=== PATIENT | female | born 1935 | race Two or more races ===

== ENCOUNTER 2018-06-18 20:35 | Inpatient (IN) | payer OTHER ==
--- NOTE | 2018-06-18 21:06 | PDOC ---
History of Present Illness - General Chief Complaint: Injury Stated Complaint: FALL Time Seen by Provider: 06/18/18 21:05 History Source: Patient, Family Exam Limitations: No Limitations - History of Present Illness Initial Comments: 83 y/o female presenting to [facility] ER via ambulance from home accompanied by daughter and grandson. She is complaining of pain to the lateral aspect of her right hip and right neck. Pain started after she fell at home while attempting to change her underwear. This event was unwitnessed. She was on floor for approx. 5 min prior to being helped by family member. Denies loss of consciousness. Normal affect per family. No nausea or vomiting. PCP: Bassem Mariano Medical Hx: HTN Hyperlipidemia Recurrent epistaxis Past History - Past Medical History Allergies/Adverse Reactions: Allergies Allergy/AdvReac Type Severity Reaction Status Date / Time No Known Allergies Allergy Verified 10/09/14 11:48 Home Medications: Ambulatory Orders Aspirin [ASA -] 81 mg PO ASDIR 10/09/14 Escitalopram Oxalate [Lexapro -] 10 mg PO DAILY 10/09/14 Olmesartan Medoxomil [Benicar (Nf)] 20 mg PO DAILY 10/09/14 Omeprazole [Prilosec (RX)] 20 mg PO DAILY 10/09/14 Rosuvastatin Calcium [Crestor] 5 mg PO HS 10/09/14 Solifenacin Succinate [Vesicare] 5 mg PO DAILY 10/09/14 HTN: Yes Hypercholesterolemia: Yes Psychiatric Problems: Yes (Depression) - Surgical History Appendectomy: Yes - Suicide/Smoking/Psychosocial Hx Smoking History: Never smoked Have you smoked in the past 12 months: No Hx Alcohol Use: No Substance Use Type: None Review of Systems - Review of Systems Able to Perform ROS?: Yes Comments:: In addition to that documented in the HPI above, the additional ROS was obtained : Constitutional: Denies fevers or chills Eyes: Denies vision changes ENMT: Denies sore throat CV: Denies chest pain Resp: Denies SOB GI: Denies vomiting or diarrhea *Physical Exam - Physical Exam Comments: Constitutional: Elderly female in no acute distress or but obvious discomfort. Found semi-fowlers in hospital bed. Alert and oriented x4. Answered all questions appropriately and completely. Speech was non-labored, non-pressured. HEENT: Normocephalic. No obvious external signs of trauma. Hearing grossly normal. No nasal discharge. Neck is supple, trachea is midline. Subjective tenderness to right side of neck without obvious deformity, no step off. Able to rotate neck <45 degrees. Cardiovascular: Regular rate and regular rhythm. No murmur, rubs, clicks, or gallops. Peripheral pulses: Radial pulses full. Respiratory: Breathing unlabored. Equal chest rise and fall. Clear to auscultation bilaterally. No stridor, no wheezing, no rhonchi. Gastrointestinal: abdomen is soft, non-tender, non-distended. Neuro: Alert and oriented. Moving all four extremities spontaneously. Left lower extremity: proximal and distal strength 5/5, land surveyor manager strength 5/5 - equal and symmetric. Unable to assess right lower extremity - limited by pain. Plantar flexion and dorsiflexion 5/5 bilaterally. Skin/MSK: Warm, dry, and intact. No bruising, rashes, or other lesions. R and L leg length equal. Right leg not externally rotated. Subjective tenderness to proximal lateral aspect of right femur, . Psych: Affect: appropriate. Mood: normal. ED Treatment Course - LABORATORY CBC & Chemistry Diagram: 06/18/18 22:36 06/18/18 22:36 - RADIOLOGY Radiograph Interpretation: CT of head and cervical spine without contrast: Ty Garg MD wrote on Jun 19, 2018 at 01:25 AM: Referring Physician: BISHOP BLISS Patient Name: NASRIN MEJIA THIS IS A PRELIMINARY REPORT FROM [facility] DATE OF SERVICE: 2018-06-19 00:49:20 IMAGES: [id number] EXAM: HEAD CT WITHOUT CONTRAST and CT cervical spine without contrast HISTORY: Status post fall COMPARISON: None. FINDINGS: CT brain:The ventricular system is midline and nondilated. There is vvla-jx-aserleti cortical atrophy and chronic small vessel ischemic disease. There is no bleed, mass, extra-axial fluid collection or mass effect. No skull fracture or skull lesion is identified. There is mild mucosal thickening of bilateral maxillary sinuses but no sinus air-fluid levels. Status post left mastoidectomy. The right mastoid air cells are clear. CT cervical spine: There is no fracture, subluxation, prevertebral soft tissue swellin. There are multilevel moderate degenerative changes. 3 mm ill-defined right upper lobe nodule is noted. IMPRESSION: No acute intracranial pathology. No fracture the cervical spine. 3 mm right upper lobe nodule. CT chest may be obtained as clinically indicated. One or more of the following dose reduction techniques were used: automated exposure control, adjustment of the mA and/or kV according to patient size, use of iterative reconstructive technique. THIS DOCUMENT HAS BEEN ELECTRONICALLY SIGNED Manpreet Garg MD 06/19/2018 01:22 EST Medical Decision Making - Medical Decision Making *Reviewed vital signs, nursing notes, and prior visit documentation (if available). 83 y/o female complaining of right hip/leg pain s/p fall. Vitals unremarkable. Intertrochanteric right femur fracture on plain film. CT of head and cervical spine unremarkable for acute process. Made NPO. Pain controlled with tylenol and morphine. Maintenance fluids started. Consult request placed for Dr. Meredith of orthopedic service. 02:[address] Tillman, admitting physician for Dr. Mariano. Agreed to admit pt to med/surg on inpatient status. *DC/Admit/Observation/Transfer Diagnosis at time of Disposition: Intertrochanteric fracture of right femur Qualifiers: Encounter type: initial encounter Fracture type: closed Fracture alignment: displaced Qualified Code(s): S72.141A - Displaced intertrochanteric fracture of right femur, initial encounter for closed fracture - Discharge Dispostion Condition at time of disposition: Stable Decision to Admit order: Yes - Referrals - Patient Instructions - Post Discharge Activity
[2018-06-18 21:09] VITALS: BMI 31.3
--- NOTE | 2018-06-18 21:51 | PDOC ---
Attending Attestation - HPI HPI: This patient is an 83 year old Kinyarwanda speaking female with PMHx of HTN and hyperlipidemia, recurrent epistaxis, who was BIBA from home and presents s/p fall with complaints of right hip and neck pain. Patient states that she fell from a standing position while trying to change her diaper. She reports a unwitnessed fall to the floor. She immediately called for her attendant who came to her aid. She denies loss of consciousness. Her family reports unchanged mental status. 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 PCP: Bassem Mariano <Abril Adhikari - Last Filed: 06/18/18 22:21> - Resident Resident Name: Rolando Louie - ED Attending Attestation I have performed the following: I have examined & evaluated the patient, The case was reviewed & discussed with the resident, I agree w/resident's findings & plan, Exceptions are as noted - Physicial Exam PE: 06/19/18 01:53 Patient is awake and alert, well-appearing, in no distress Normocephalic and atraumatic PERRLA, EOMI CTA RRR Pelvis is stable Tenderness to palpation along the proximal right femur with pain on log roll of the right lower extremity; neurovascularly intact distally; gait is deferred - Medical Decision Making 06/19/18 01:54 Patient is an 83-year-old female who presents with traumatic right shoulder and right hip pain post mechanical fall. CT of head and cervical spine show no evidence of acute pathology. Right hip x-ray reveals an intertrochanteric fracture of the right femur. Patient will require admission for orthopedic evaluation and ORIF. We'll place Palma catheter. <Omid Pacheco - Last Filed: 06/19/18 01:54>
[2018-06-18] MEDS ORDERED: ACETAMINOPHEN 1000 MG/100 ML VIAL (NON FORMULARY) IVPB ONE (22:07)
[2018-06-18] MEDS ORDERED: ACETAMINOPHEN INJECTION 100 ML IVPB ONE (22:23)
[2018-06-18 23:04] LABS: INR 1.13 (0.83-1.09); PROTHROMBIN TIME (PATIENT) 13.3 SEC (9.7-13.0)
[2018-06-18 23:07] LABS: ACTIVATED PTT 29.2 SECONDS (25.2-36.5)
[2018-06-18 23:18] LABS: ANION GAP 11 MMOL/L (8-16); BLOOD UREA NITROGEN 27 mg/dL (7-18); CALCIUM 8.6 mg/dL (8.5-10.1); CHLORIDE 106 mmol/L (98-107); CO2 26 mmol/L (21-32); GLUCOSE,RANDOM 118 mg/dL (74-106); POTASSIUM 3.8 mmol/L (3.5-5.1); SODIUM 143 mmol/L (136-145)
[2018-06-18 23:41] LABS: BASO % 0.3 % (0-2.0); EOS % 0.8 % (0-4.5); HEMATOCRIT 37.2 % (32.4-45.2); HEMOGLOBIN 12.2 GM/dL (10.7-15.3); LYMPH % 13.8 % (8-40); MCH 28.1 pg (25.7-33.7); MCHC 32.8 g/dl (32.0-36.0); MEAN CELL VOLUME 85.8 fl (80-96); MEAN PLT VOLUME 9.6 fl (7.5-11.1); MONO % 6.2 % (3.8-10.2); NEUT % 78.9 % (42.8-82.8); PLATELET COUNT 228 K/MM3 (134-434); RBC 4.33 M/mm3 (3.60-5.2); RDW 14.1 % (11.6-15.6); WHITE BLOOD COUNT 11.3 K/mm3 (4.0-10.0)
[2018-06-19] MEDS ORDERED: morphine CARPU-JECT 4 MG/1 ML DISP.SYRIN IVPUSH ONE ×2 (02:18→06:48)
[2018-06-19] MEDS ORDERED: ONDANSETRON 4 MG/2 ML VIAL IVPUSH ONE (02:18)
[2018-06-19] MEDS ORDERED: MORPHINE SULFATE 2 MG/ML VIAL ONE ×3 (02:54→13:15)
[2018-06-19] MEDS ORDERED: ONDANSETRON 4 MG/2 ML VIAL ONE (02:55)
[2018-06-19] MEDS: DEXTROSE 5%-0.45% SALINE 1,000 ML IV SCH ×2 (03:03→22:58)
--- NOTE | 2018-06-19 09:10 | CON.ORTH ---
Consult Reason for Consultation:: right hip fx - Alcohol/Substance Use Hx Alcohol Use: No - Smoking History Smoking history: Never smoked Have you smoked in the past 12 months: No Home Medications - Allergies Allergies/Adverse Reactions: Allergies Allergy/AdvReac Type Severity Reaction Status Date / Time No Known Allergies Allergy Verified 10/09/14 11:48 - Home Medications Home Medications: Ambulatory Orders Aspirin [ASA -] 81 mg PO ASDIR 10/09/14 Escitalopram Oxalate [Lexapro -] 10 mg PO DAILY 10/09/14 Olmesartan Medoxomil [Benicar (Nf)] 20 mg PO DAILY 10/09/14 Omeprazole [Prilosec (RX)] 20 mg PO DAILY 10/09/14 Rosuvastatin Calcium [Crestor] 5 mg PO HS 10/09/14 Solifenacin Succinate [Vesicare] 5 mg PO DAILY 10/09/14 Physical Exam for Ortho Vital Signs: Vital Signs Temperature 98.2 F 06/19/18 05:51 Pulse Rate 73 06/19/18 05:51 Respiratory Rate 16 06/19/18 05:51 Blood Pressure 172/78 H 06/19/18 05:51 O2 Sat by Pulse Oximetry (%) 96 06/19/18 05:51 Labs: CBC, BMP 06/18/18 22:36 06/18/18 22:36 INR, PTT INR 1.13 (0.83-1.09) H 06/18/18 22:36 - Lower Extremity Hip: Yes: Right, Decreased ROM, Leg Externally Rotated, Leg Shortened, Pain, Swelling, Other (nvi) Imaging - Results X-ray: Report Reviewed, Image Reviewed Assessment/Plan 83 year old Croatian speaking female with PMHx of HTN and hyperlipidemia, recurrent epistaxis, who was BIBA from home and presents s/p fall with complaints of right hip and neck pain. Patient states that she fell from a standing position while trying to change her diaper. She reports a unwitnessed fall to the floor. She immediately called for her attendant who came to her aid. She denies loss of consciousness. Her family reports unchanged mental status. a/p right displaced IT fx will require right IM gamma nail will d/w pts family OR tentatively for tomorrow Surgical clearance NPO after midnight d/w Dr. Meredith
--- NOTE | 2018-06-19 11:08 | EKG ---
Test Reason : Blood Pressure : / mmHG Vent. Rate : 079 BPM Atrial Rate : 079 BPM P-R Int : 138 ms QRS Dur : 084 ms QT Int : 396 ms P-R-T Axes : 053 007 061 degrees QTc Int : 454 ms POOR DATA QUALITY, INTERPRETATION MAY BE ADVERSELY AFFECTED NORMAL SINUS RHYTHM NORMAL ECG NO PREVIOUS ECGS AVAILABLE Confirmed by HANNAH IYER MD ([id number]) on 06/19/2018 11:07:41 AM Referred By: Confirmed By:HANNAH IYER MD
[2018-06-19] MEDS ORDERED: ONDANSETRON 4 MG/2 ML VIAL IVPUSH PRN (12:24)
[2018-06-19] MEDS ORDERED: VALSARTAN 80 MG TABLET (UD) ONE (13:15)
[2018-06-19] MEDS ORDERED: PANTOPRAZOLE 40 MG TABLET (FP) ONE (13:15)
[2018-06-19 13:19] LABS: BASO % 0.5 % (0-2.0); EOS % 0.8 % (0-4.5); HEMATOCRIT 37.6 % (32.4-45.2); HEMOGLOBIN 12.6 GM/dL (10.7-15.3); LYMPH % 16.5 % (8-40); MCH 28.5 pg (25.7-33.7); MCHC 33.6 g/dl (32.0-36.0); MEAN PLT VOLUME 8.9 fl (7.5-11.1); MONO % 7.1 % (3.8-10.2); NEUT % 75.1 % (42.8-82.8); PLATELET COUNT 194 K/MM3 (134-434); RBC 4.42 M/mm3 (3.60-5.2); RDW 13.8 % (11.6-15.6); WHITE BLOOD COUNT 8.8 K/mm3 (4.0-10.0)
[2018-06-19 13:36] LABS: ALBUMIN 3.4 g/dl (3.4-5.0); ALK PHOS 116 U/L (45-117); ANION GAP 7 MMOL/L (8-16); BILIRUBIN,TOTAL 1.1 mg/dL (0.2-1); BLOOD UREA NITROGEN 18 mg/dL (7-18); CALCIUM 8.3 mg/dL (8.5-10.1); CHLORIDE 103 mmol/L (98-107); CO2 28 mmol/L (21-32); CREATININE 0.9 mg/dL (0.55-1.3); GLUCOSE,RANDOM 146 mg/dL (74-106); POTASSIUM 3.7 mmol/L (3.5-5.1); SGOT/AST 28 U/L (15-37); SGPT/ALT 30 U/L (13-61); SODIUM 138 mmol/L (136-145); TOT PROT 6.3 g/dl (6.4-8.2)
[2018-06-19] MEDS: MORPHINE SULFATE 2 MG/ML VIAL IVPUSH PRN (14:04)
[2018-06-19] MEDS: PANTOPRAZOLE 20 MG TABLET (FP) PO SCH (14:04)
[2018-06-19] MEDS: VALSARTAN 160 MG TABLET (UD) PO SCH (14:04)
--- NOTE | 2018-06-19 15:54 | ECHO ---
Name: NASRIN MEJIA Exam:Adult Echocardiogram Study Date: 06/19/2018 01:30 PM Age: 83 yrs Reason For Study: HTN CARDIAC CLEARANCE Height: 58 in Weight: 150 lb BSA: 1.6 m2 MMode/2D Measurements & Calculations IVSd: 0.88 cm Ao root diam: 3.0 cm LVIDd: 4.0 cm LVIDs: 2.7 cm LVPWd: 0.80 cm EDV(Teich): 71.0 ml ESV(Teich): 28.0 ml Doppler Measurements & Calculations MV E max grabiel: 55.8 cm/sec Ao V2 max: 134.2 cm/sec MV A max grabiel: 95.8 cm/sec Ao max P.2 mmHg MV E/A: 0.58 AI P1/2t: 370.4 msec AI max grabiel: 348.4 cm/sec LV V1 max P.5 mmHg AI max P.6 mmHg LV V1 max: 94.0 cm/sec AI dec slope: 275.5 cm/sec2 Med Peak E' Grabiel: 5.0 cm/sec Med E/e': 11.1 Lat Peak E' Grabiel: 7.5 cm/sec Lat E/e': 7.5 Procedure A complete two-dimensional transthoracic echocardiogram was performed (2D, M-mode, Doppler and color flow Doppler). The study was technically difficult with many images being suboptimal in quality. Left Ventricle The left ventricular size, thickness and function are normal. The left ventricular ejection fraction is normal. Ejection Fraction = 60-65%. Regional wall motion abnormalities cannot be excluded due to limi ulises visualization. Right Ventricle The right ventricle is normal in size and function. Atria The left atrial size is normal. Right atrium not well visualized. Mitral Valve There is no mitral regurgitation noted. Tricuspid Valve No tricuspid regurgitation. There was insufficient TR detected to calculate RV systolic pressure. Aortic Valve No hemodynamically significant valvular aortic stenosis. Trace aortic regurgitation. Pulmonic Valve There is no pulmonic valvular regurgitation. Great Vessels The aortic root is normal size. Pericardium/Pleura There is no pericardial effusion. Interpretation Summary The study was technically difficult with many images being suboptimal in quality. The left ventricular size, thickness and function are normal The right ventricle is normal in size and function. Trace aortic regurgitation. MD Ezio Caldwell 06/19/2018 03:53 PM
--- NOTE | 2018-06-19 17:30 | HP ---
Admitting History and Physical - Admission History of Present Illness: Pt is a 83 y/o female with PMH significant for HTN, hyperlipidemia and recurrent epistaxis. Pt was BIBA from home bc of a fall with complaints of right hip and neck pain. Patient stated that she fell from a standing position while trying to change her diaper. Pt reported an unwitnessed fall to the floor. Pt immediately called for her attendant who came to her aid. In the ER pt had ct scan head wc did not show acute pathology and ct scan cervical spine was also negative for any acute pathology. However xray rt hip showed rt femoral intertrochanteric fracture. - Past Medical History Cardiovascular: Yes: HTN, Hyperlipdemia - Past Surgical History Past Surgical History: Yes: None - Smoking History Smoking history: Never smoked Have you smoked in the past 12 months: No - Alcohol/Substance Use Hx Alcohol Use: No Home Medications - Allergies Allergies/Adverse Reactions: Allergies Allergy/AdvReac Type Severity Reaction Status Date / Time No Known Allergies Allergy Verified 10/09/14 11:48 - Home Medications Home Medications: Ambulatory Orders Aspirin [ASA -] 81 mg PO ASDIR 10/09/14 Escitalopram Oxalate [Lexapro -] 10 mg PO DAILY 10/09/14 Olmesartan Medoxomil [Benicar (Nf)] 20 mg PO DAILY 10/09/14 Omeprazole [Prilosec (RX)] 20 mg PO DAILY 10/09/14 Rosuvastatin Calcium [Crestor] 5 mg PO HS 10/09/14 Solifenacin Succinate [Vesicare] 5 mg PO DAILY 10/09/14 Family Disease History - Family Disease History Family History: Unremarkable Review of Systems - Review of Systems Constitutional: reports: No Symptoms Eyes: reports: No Symptoms HENT: reports: No Symptoms Neck: reports: No Symptoms Cardiovascular: reports: No Symptoms Respiratory: reports: No Symptoms Gastrointestinal: reports: No Symptoms Genitourinary: reports: No Symptoms Physical Examination Vital Signs: Vital Signs Temperature 97.6 F 06/19/18 14:45 Pulse Rate 79 06/19/18 14:45 Respiratory Rate 19 06/19/18 14:45 Blood Pressure 138/72 06/19/18 14:45 O2 Sat by Pulse Oximetry (%) 95 06/19/18 14:45 Constitutional: Yes: No Distress HENT: Yes: WNL Neck: Yes: WNL, Supple Cardiovascular: Yes: WNL, Regular Rate and Rhythm Respiratory: Yes: WNL, Regular, CTA Bilaterally Gastrointestinal: Yes: WNL, Normal Bowel Sounds, Soft Extremities: Yes: Other (Unable to move rt lower extremity) Neurological: Yes: WNL, Alert, Oriented Labs: CBC, BMP 06/19/18 13:10 06/19/18 13:10 Problem List - Problems (1) Intertrochanteric fracture of right femur Assessment/Plan: Pt is medically cleared for surgery Will also check echo and cardiac consult for cardiac clearance Code(s): S72.141A - DISPLACED INTERTROCHANTERIC FRACTURE OF RIGHT FEMUR, INIT Qualifiers: Encounter type: initial encounter Fracture type: closed Fracture alignment: displaced Qualified Code(s): S72.141A - Displaced intertrochanteric fracture of right femur, initial encounter for closed fracture (2) HTN (hypertension) Assessment/Plan: Cont valsartan BP stable Code(s): I10 - ESSENTIAL (PRIMARY) HYPERTENSION (3) HLD (hyperlipidemia) Assessment/Plan: Cont crestor Code(s): E78.5 - HYPERLIPIDEMIA, UNSPECIFIED
[2018-06-19] MEDS ORDERED: ROSUVASTATIN CA 5 MG TABLET (FP) PO SCH (22:00)
[2018-06-20] MEDS: DEXTROSE 5%-0.45% SALINE 1,000 ML IV SCH ×3 (02:55→14:35)
[2018-06-20] MEDS: MORPHINE SULFATE 2 MG/ML VIAL IVPUSH PRN ×2 (05:42→20:37)
[2018-06-20 08:15] LABS: BASO % 0.4 % (0-2.0); EOS % 1.4 % (0-4.5); HEMOGLOBIN 11.6 GM/dL (10.7-15.3); LYMPH % 15.9 % (8-40); MCH 28.2 pg (25.7-33.7); MCHC 33.2 g/dl (32.0-36.0); MEAN PLT VOLUME 8.9 fl (7.5-11.1); MONO % 8.4 % (3.8-10.2); NEUT % 73.9 % (42.8-82.8); PLATELET COUNT 172 K/MM3 (134-434); RBC 4.12 M/mm3 (3.60-5.2); RDW 13.7 % (11.6-15.6); WHITE BLOOD COUNT 8.6 K/mm3 (4.0-10.0)
[2018-06-20 08:49] LABS: ALBUMIN 3.1 g/dl (3.4-5.0); ALK PHOS 103 U/L (45-117); ANION GAP 9 MMOL/L (8-16); BLOOD UREA NITROGEN 14 mg/dL (7-18); CHLORIDE 105 mmol/L (98-107); CO2 24 mmol/L (21-32); CREATININE 0.7 mg/dL (0.55-1.3); GLUCOSE,RANDOM 117 mg/dL (74-106); POTASSIUM 3.9 mmol/L (3.5-5.1); SGOT/AST 17 U/L (15-37); SGPT/ALT 25 U/L (13-61); SODIUM 138 mmol/L (136-145)
--- NOTE | 2018-06-20 09:24 | CON.CARD ---
Cardiology Consult (text) - Consultation Consultation Note: Cardiology Consult Dicated IMP: Right Intertrochanteric Fx REC: There are no absolute cardiac contraindications to surgery: No , no unstable coronary syndrome, in NSR with normal EF and euvolemic. Post op DVT prophylaxis Will follow thanks
[2018-06-20] MEDS ORDERED: SOLIFENACIN SUCCINATE 5 MG TAB (FP) PO SCH (10:00)
--- NOTE | 2018-06-20 10:03 | CONS ---
DATE OF CONSULTATION: 06/20/2018 REQUESTING PHYSICIAN: Fatuma Tillman MD REASON FOR CONSULTATION: Preoperative evaluation. HISTORY: The patient is an 83-year-old female who presented to the emergency department via ambulance from her home accompanied by her daughter and grandson. The patient fell while attempting to change her underwear, sustained a mechanical fall, and was complaining of pain to the lateral aspect of her right hip. The patient denies antecedent chest pain, palpitations, or loss of consciousness. She denies shortness of breath. Her hip x-ray revealed a right femoral intertrochanteric fracture for which she was seen by Orthopaedics, and surgery is required. Cervical and head CTs showed no fracture. Chest x-ray and electrocardiogram were normal. The patient is currently lying in bed complaining of pain in the right hip. She denies chest pain, shortness of breath, palpitations, PND, or orthopnea. PAST MEDICAL HISTORY: Significant for hyperlipidemia, depression, hypertension, and GERD. CURRENT ALLERGIES: None. CURRENT MEDICATIONS: Include morphine sulfate 2 mg IV q.6 p.r.n., Ondansetron 4 mg IV q.6, pantoprazole 20 mg p.o. daily, rosuvastatin 5 mg p.o. nightly, Vesicare, valsartan 160 mg p.o. daily. FAMILY HISTORY: Noncontributory. SOCIAL HISTORY: No alcohol, tobacco, or illicit drug use. PHYSICAL EXAMINATION: Vital Signs: Blood pressure 98.4 Fahrenheit, pulse 81, blood pressure 153/67, O2 saturation 95 on room air, temperature 98.4, blood pressure 122/60, O2 95 on room air. Neck: No bruits. Heart: S1, S3 regular. No murmurs. Chest: Clear. Abdomen: Soft, nontender. Extremities: No edema. DIAGNOSTIC DATA: ECG: Normal sinus with no acute changes. White count 8.6, hematocrit 35, platelets 172, INR 1.1. Sodium 138, potassium 3.9, creatinine 0.7. LFTs are normal. IMPRESSION: 1. Mechanical fall. 2. Right intertrochanteric fracture. 3. History of hypertension. RECOMMENDATIONS: 1. There presently are no absolute cardiac contraindications to the planned surgery. The patient is in normal sinus rhythm and is euvolemic. There is no aortic stenosis and no signs or symptoms of acute coronary syndrome. Can proceed to surgery with no further cardiac workup. No further cardiac workup is indicated nor should it delay this important procedure. 2. Blood pressure is currently well controlled. The patient should take usual blood pressure medications with a small sip of water. 3. DVT prophylaxis as per Orthopaedic surgery. We will follow. Thank you for the consultation. KATHY CANALES M.D. [id number]
[2018-06-20] MEDS: VALSARTAN 160 MG TABLET (UD) PO SCH (10:07)
[2018-06-20] MEDS: PANTOPRAZOLE 20 MG TABLET (FP) PO SCH (10:08)
[2018-06-20] MEDS ORDERED: PROPOFOL 20 ML ONE (10:52)
[2018-06-20] MEDS ORDERED: LIDOCAINE HCL/PF 2% SDV 5ML VIAL ONE (10:52)
[2018-06-20] MEDS ORDERED: ceFAZolin SODIUM 1 GM VIAL ONE ×2 (11:37→16:07)
[2018-06-20] MEDS ORDERED: ceFAZolin SODIUM 1 GM VIAL IVPB ONE (11:40)
[2018-06-20] MEDS ORDERED: KETOROLAC TROMETHAMINE 30 MG/1 ML VIAL ONE (11:57)
[2018-06-20] MEDS ORDERED: DEXAMETHASONE SOD PHOSPHATE 4 MG/1 ML VIAL ONE (12:02)
[2018-06-20] MEDS ORDERED: ACETAMINOPHEN 1000 MG/100 ML VIAL (NON FORMULARY) IVPB PRN ×2 (12:32→13:09)
[2018-06-20] MEDS ORDERED: LACTATED RINGERS SOLUTION 1,000 ML IV SCH ×2 (12:45→13:09)
[2018-06-20] MEDS ORDERED: ACETAMINOPHEN INJECTION 100 ML IVPB ONE (12:51)
[2018-06-20] MEDS ORDERED: ONDANSETRON 4 MG/2 ML VIAL IVPUSH PRN (13:09)
--- NOTE | 2018-06-20 14:14 | OP ---
Operative Note - Note: Operative Date: 06/20/18 Pre-Operative Diagnosis: r it hip fx Operation: R GAMMA NAIL Post-Operative Diagnosis: Same as Pre-op Surgeon: Oscar Meredith Anesthesia: General Estimated Blood Loss (mls): 50 Operative Report Dictated: Yes
[2018-06-20] MEDS: LACTATED RINGERS SOLUTION 1,000 ML IV SCH (14:55)
[2018-06-20] MEDS ORDERED: DEXTROSE 5%-WATER - 50 ML IVPB ONE (16:07)
[2018-06-20] MEDS: CEFAZOLIN 1 GM in DEXTROSE 5%-WATER - 50 ML IVPB SCH (17:03)
[2018-06-20] MEDS ORDERED: CEFAZOLIN 1 GM in DEXTROSE 5%-WATER - 50 ML IVPB SCH (20:00)
[2018-06-20] MEDS ORDERED: PT OWN MED DRAWER 7, Y5N ONE (20:59)
[2018-06-20] MEDS: ROSUVASTATIN CA 5 MG TABLET (FP) PO SCH (21:00)
--- NOTE | 2018-06-20 22:35 | PN ---
Progress Note, Physician - Current Medication List Current Medications: Active Medications Enoxaparin Sodium (Lovenox -) 40 mg SQ DAILY [facility] Dextrose/Sodium Chloride (D5-1/2ns -) 1,000 mls @ 100 mls/hr IV ASDIR LILLIAN Last Admin: 06/20/18 14:35 Dose: 0 mls Cefazolin Sodium 1 gm/ (Dextrose) 50 mls @ 100 mls/hr IVPB Q8H-IV LILLIAN Stop: 06/21/18 02:29 Last Admin: 06/20/18 17:03 Dose: 100 mls/hr Lactated Ringer's (Lactated Ringers Solution) 1,000 mls @ 75 mls/hr IV ASDIR LILLIAN Last Admin: 06/20/18 14:55 Dose: 75 mls/hr Morphine Sulfate (Morphine Sulfate) 2 mg IVPUSH Q6H PRN PRN Reason: pain Last Admin: 06/20/18 20:37 Dose: 2 mg Ondansetron HCl (Zofran Injection) 4 mg IVPUSH Q6H PRN PRN Reason: NAUSEA Pantoprazole Sodium (Protonix -) 20 mg PO DAILY [facility] Rosuvastatin Calcium (Crestor -) 5 mg PO HS LILLIAN Last Admin: 06/20/18 21:00 Dose: 5 mg Solifenacin (Vesicare -) 5 mg PO DAILY LILLIAN Valsartan (Diovan -) 160 mg PO DAILY [facility] - Objective Vital Signs: Vital Signs Temperature 99.5 F 06/20/18 20:00 Pulse Rate 63 06/20/18 20:00 Respiratory Rate 20 06/20/18 20:00 Blood Pressure 132/81 06/20/18 20:00 O2 Sat by Pulse Oximetry (%) 95 06/20/18 18:37 Labs: CBC, BMP 06/20/18 06:50 06/20/18 06:50 INR, PTT INR 1.13 (0.83-1.09) H 06/18/18 22:36 Problem List - Problems (1) Intertrochanteric fracture of right femur Code(s): S72.141A - DISPLACED INTERTROCHANTERIC FRACTURE OF RIGHT FEMUR, INIT Qualifiers: Encounter type: initial encounter Fracture type: closed Fracture alignment: displaced Qualified Code(s): S72.141A - Displaced intertrochanteric fracture of right femur, initial encounter for closed fracture (2) HTN (hypertension) Code(s): I10 - ESSENTIAL (PRIMARY) HYPERTENSION (3) HLD (hyperlipidemia) Code(s): E78.5 - HYPERLIPIDEMIA, UNSPECIFIED
[2018-06-21] MEDS ORDERED: DEXTROSE 5%-WATER - 50 ML IVPB ONE (01:27)
[2018-06-21] MEDS ORDERED: ceFAZolin SODIUM 1 GM VIAL ONE (01:27)
[2018-06-21] MEDS: CEFAZOLIN 1 GM in DEXTROSE 5%-WATER - 50 ML IVPB SCH (01:31)
[2018-06-21] MEDS: MORPHINE SULFATE 2 MG/ML VIAL IVPUSH PRN ×2 (04:58→18:54)
[2018-06-21] MEDS: LACTATED RINGERS SOLUTION 1,000 ML IV SCH ×2 (05:00→18:44)
[2018-06-21 09:05] LABS: BASO % 0.3 % (0-2.0); EOS % 0.1 % (0-4.5); HEMATOCRIT 26.6 % (32.4-45.2); HEMOGLOBIN 8.7 GM/dL (10.7-15.3); LYMPH % 10.3 % (8-40); MCHC 32.6 g/dl (32.0-36.0); MEAN CELL VOLUME 85.9 fl (80-96); MONO % 10.5 % (3.8-10.2); NEUT % 78.8 % (42.8-82.8); PLATELET COUNT 139 K/MM3 (134-434); RDW 13.9 % (11.6-15.6); WHITE BLOOD COUNT 10.3 K/mm3 (4.0-10.0)
--- NOTE | 2018-06-21 09:06 | SPEC ---
DATE OF OPERATION: 06/20/2018 PREOPERATIVE DIAGNOSIS: Right intertrochanteric/basicervical hip fracture. POSTOPERATIVE DIAGNOSIS: Right intertrochanteric/basicervical hip fracture. PROCEDURE: Right Gamma nail. SURGICAL ATTENDING: Oscar Mereidth MD ANESTHESIA: General with LMA. CLOSURE: A short Gamma nail of 125 degree with appropriate interlocks, 0 Vicryl fascia, 2-0 subcutaneous, torsten to skin. ESTIMATED BLOOD LOSS: Negligible. COMPLICATIONS: None. CONDITION: To Recovery in stable condition. DESCRIPTION OF THE PROCEDURE: The patient was taken to the operating room on June 20, 2018. IV Kefzol was administered prophylactically prior to the case. Anesthesia was administered by the anesthesiologist. The patient was then fastened to the fracture table with all prominences well padded. Excellent reduction of the fracture was confirmed in AP and lateral plane by use of fluoroscopy. The right hip area was then prepped and draped in the usual sterile fashion by use of a shower curtain. A small 2-cm longitudinal incision over the tip of the greater trochanter was incised, hemostasis achieved using Bovie cautery. Sharp dissection was carried through the fascia. A guidewire was drilled from the tip of the greater trochanter into the intramedullary canal past the fracture. This was directed by fluoroscopy in both the AP and lateral plane. This was overreamed with a proximal reamer. A short Gamma nail was then malleted down into place. Using the outrigger and a small stab incision laterally, a guidewire was drilled from the lateral aspect of the femur, through the radha, through the neck into the femoral head. Proper placement was confirmed in the AP and lateral plane by using the image intensifier. The guidewire was measured for length, reamed with a triple reamer, and then screwed with the appropriate-sized lag screw. With the traction removed, the compression device was used to compress the fracture. A set screw was placed from above in the dynamic fashion. Again using the outrigger and through a small stab incision distally, a distal hole was drilled, depth gauged and screwed with the appropriate length locking screw in the static hole. The outrigger was removed. The x-rays in the AP and lateral plane revealed excellent position of the hardware with excellent reduction of the fracture. All incisions were irrigated out with copious amounts of irrigation. The fascia was closed in 0 Vicryl, 2-0 subcutaneous, and torsten to the skin. Sterile pressure dressing was applied, patient awakened from anesthesia and transferred to Recovery in stable condition. No complications. Estimated blood loss negligible. Brittanie [id number]
--- NOTE | 2018-06-21 09:20 | PN ---
Progress Note, Physician History of Present Illness: 83 y/o female presenting to [facility] ER via ambulance from home accompanied by daughter and grandson. She is complaining of pain to the lateral aspect of her right hip and right neck. Pain started after she fell at home while attempting to change her underwear. This event was unwitnessed. She was on floor for approx. 5 min prior to being helped by family member. Denies loss of consciousness. Normal affect per family. No nausea or vomiting. PCP: [facility] Hx: HTN Hyperlipidemia Recurrent epistaxis - Current Medication List Current Medications: Active Medications Enoxaparin Sodium (Lovenox -) 40 mg SQ DAILY [facility] Dextrose/Sodium Chloride (D5-1/2ns -) 1,000 mls @ 100 mls/hr IV ASDIR [facility] Last Admin: 06/20/18 14:35 Dose: 0 mls Lactated Ringer's (Lactated Ringers Solution) 1,000 mls @ 75 mls/hr IV ASDIR [facility] Last Admin: 06/21/18 05:00 Dose: 75 mls/hr Morphine Sulfate (Morphine Sulfate) 2 mg IVPUSH Q6H PRN PRN Reason: pain Last Admin: 06/21/18 04:58 Dose: 2 mg Ondansetron HCl (Zofran Injection) 4 mg IVPUSH Q6H PRN PRN Reason: NAUSEA Pantoprazole Sodium (Protonix -) 20 mg PO DAILY [facility] Rosuvastatin Calcium (Crestor -) 5 mg PO HS [facility] Last Admin: 06/20/18 21:00 Dose: 5 mg Solifenacin (Vesicare -) 5 mg PO DAILY [facility] Valsartan (Diovan -) 160 mg PO DAILY [facility] - Objective Vital Signs: Vital Signs Temperature 98.9 F 06/21/18 06:00 Pulse Rate 76 06/21/18 06:00 Respiratory Rate 20 06/21/18 06:00 Blood Pressure 134/65 06/21/18 06:00 O2 Sat by Pulse Oximetry (%) 98 06/20/18 22:00 Eyes: Yes: WNL, Conjunctiva Clear, EOM Intact HENT: Yes: WNL, Atraumatic, Normocephalic Neck: Yes: WNL, Supple, Trachea Midline Cardiovascular: Yes: WNL, Regular Rate and Rhythm Respiratory: Yes: WNL, Regular, CTA Bilaterally Gastrointestinal: Yes: WNL, Normal Bowel Sounds Genitourinary: Yes: WNL Musculoskeletal: Yes: WNL Extremities: Yes: WNL Edema: No Integumentary: Yes: WNL Neurological: Yes: WNL, Alert, Oriented ...Motor Strength: WNL Psychiatric: Yes: WNL Labs: CBC, BMP 06/21/18 07:45 INR, PTT INR 1.13 (0.83-1.09) H 06/18/18 22:36 Assessment/Plan s/p r hip gamma nail POD #1 htn hlp Plan; Cardiac ball stable . cont dvt plx coverage for dr. Gordon
--- NOTE | 2018-06-21 09:26 | PN ---
Progress Note (short form) - Note Progress Note: Post op day#1.s/p Rigt hip gamma nail under GA UNEVENTFFUL.PATIENT STABLE.NO ANY ANESTHESIA RELATED PROBELM.PATIENT DC FROM THE [facility]EST[facility]IA [facility].
[2018-06-21 09:40] LABS: ALBUMIN 2.6 g/dl (3.4-5.0); ALK PHOS 80 U/L (45-117); ANION GAP 7 MMOL/L (8-16); BILIRUBIN,TOTAL 0.7 mg/dL (0.2-1); BLOOD UREA NITROGEN 19 mg/dL (7-18); CHLORIDE 105 mmol/L (98-107); CO2 26 mmol/L (21-32); CREATININE 0.7 mg/dL (0.55-1.3); GLUCOSE,RANDOM 106 mg/dL (74-106); POTASSIUM 4.2 mmol/L (3.5-5.1); SGOT/AST 21 U/L (15-37); SGPT/ALT 25 U/L (13-61); SODIUM 138 mmol/L (136-145); TOT PROT 5.2 g/dl (6.4-8.2)
[2018-06-21] MEDS ORDERED: ENOXAPARIN NA (PORCINE) 40 MG/0.4 ML DISP.SYRIN SQ SCH (10:00)
[2018-06-21] MEDS ORDERED: PT OWN MED DRAWER 7, Y5N ONE (10:38)
[2018-06-21] MEDS: PANTOPRAZOLE 20 MG TABLET (FP) PO SCH (10:40)
[2018-06-21] MEDS: VALSARTAN 160 MG TABLET (UD) PO SCH (10:40)
[2018-06-21] MEDS: SOLIFENACIN SUCCINATE 5 MG TAB (FP) PO SCH (10:40)
[2018-06-21] MEDS: ENOXAPARIN NA (PORCINE) 40 MG/0.4 ML DISP.SYRIN SQ SCH (10:40)
--- NOTE | 2018-06-21 16:28 | PN ---
Progress Note, Physician - Current Medication List Current Medications: Active Medications Enoxaparin Sodium (Lovenox -) 40 mg SQ DAILY [facility] Last Admin: 06/21/18 10:40 Dose: 40 mg Dextrose/Sodium Chloride (D5-1/2ns -) 1,000 mls @ 100 mls/hr IV ASDIR [facility] Last Admin: 06/20/18 14:35 Dose: 0 mls Lactated Ringer's (Lactated Ringers Solution) 1,000 mls @ 75 mls/hr IV ASDIR [facility] Last Admin: 06/21/18 05:00 Dose: 75 mls/hr Morphine Sulfate (Morphine Sulfate) 2 mg IVPUSH Q6H PRN PRN Reason: pain Last Admin: 06/21/18 04:58 Dose: 2 mg Ondansetron HCl (Zofran Injection) 4 mg IVPUSH Q6H PRN PRN Reason: NAUSEA Pantoprazole Sodium (Protonix -) 20 mg PO DAILY [facility] Last Admin: 06/21/18 10:40 Dose: 20 mg Rosuvastatin Calcium (Crestor -) 5 mg PO HS [facility] Last Admin: 06/20/18 21:00 Dose: 5 mg Solifenacin (Vesicare -) 5 mg PO DAILY [facility] Last Admin: 06/21/18 10:40 Dose: 5 mg Valsartan (Diovan -) 160 mg PO DAILY [facility] Last Admin: 06/21/18 10:40 Dose: 160 mg - Objective Vital Signs: Vital Signs Temperature 98.4 F 06/21/18 14:18 Pulse Rate 104 H 06/21/18 14:18 Respiratory Rate 18 06/21/18 14:18 Blood Pressure 104/40 L 06/21/18 14:18 O2 Sat by Pulse Oximetry (%) 98 06/20/18 22:00 Labs: CBC, BMP 06/21/18 07:45 06/21/18 07:45 INR, PTT INR 1.13 (0.83-1.09) H 06/18/18 22:36 Problem List - Problems (1) Intertrochanteric fracture of right femur Code(s): S72.141A - DISPLACED INTERTROCHANTERIC FRACTURE OF RIGHT FEMUR, INIT Qualifiers: Encounter type: initial encounter Fracture type: closed Fracture alignment: displaced Qualified Code(s): S72.141A - Displaced intertrochanteric fracture of right femur, initial encounter for closed fracture (2) HTN (hypertension) Code(s): I10 - ESSENTIAL (PRIMARY) HYPERTENSION (3) HLD (hyperlipidemia) Code(s): E78.5 - HYPERLIPIDEMIA, UNSPECIFIED
[2018-06-21] MEDS: DEXTROSE 5%-0.45% SALINE 1,000 ML IV SCH (18:45)
[2018-06-21] MEDS ORDERED: ACETAMINOPHEN 325 MG TABLET (FP) PO PRN (19:14)
--- NOTE | 2018-06-21 19:55 | PN ---
Progress Note (short form) - Note Progress Note: AVSS COMFORTABLE BANDAGES DRY AND INTACT CALF SOFT AND NT NVI HCT=26 IMP: DOING WELL PLAN: OOB, PT, CHECK REPEAT HCT TOMORROW DC PLANNING
[2018-06-21] MEDS: ROSUVASTATIN CA 5 MG TABLET (FP) PO SCH ×2 (21:50→21:52)
--- NOTE | 2018-06-22 09:04 | PN ---
Progress Note, Physician History of Present Illness: 83 y/o female presenting to [facility] ER via ambulance from home accompanied by daughter and grandson. She is complaining of pain to the lateral aspect of her right hip and right neck. Pain started after she fell at home while attempting to change her underwear. This event was unwitnessed. She was on floor for approx. 5 min prior to being helped by family member. Denies loss of consciousness. Normal affect per family. No nausea or vomiting. PCP: [facility]sem [facility] Hx: HTN Hyperlipidemia Recurrent epistaxis - Current Medication List Current Medications: Active Medications Enoxaparin Sodium (Lovenox -) 40 mg SQ DAILY [facility] Last Admin: 06/21/18 10:40 Dose: 40 mg Dextrose/Sodium Chloride (D5-1/2ns -) 1,000 mls @ 100 mls/hr IV ASDIR [facility] Last Admin: 06/21/18 18:45 Dose: Not Given Lactated Ringer's (Lactated Ringers Solution) 1,000 mls @ 75 mls/hr IV ASDIR [facility] Last Admin: 06/21/18 18:44 Dose: 75 mls/hr Morphine Sulfate (Morphine Sulfate) 2 mg IVPUSH Q6H PRN PRN Reason: pain Last Admin: 06/21/18 18:54 Dose: 2 mg Ondansetron HCl (Zofran Injection) 4 mg IVPUSH Q6H PRN PRN Reason: NAUSEA Pantoprazole Sodium (Protonix -) 20 mg PO DAILY [facility] Last Admin: 06/21/18 10:40 Dose: 20 mg Rosuvastatin Calcium (Crestor -) 5 mg PO HS [facility] Last Admin: 06/21/18 21:52 Dose: Not Given Solifenacin (Vesicare -) 5 mg PO DAILY [facility] Last Admin: 06/21/18 10:40 Dose: 5 mg Valsartan (Diovan -) 160 mg PO DAILY [facility] Last Admin: 06/21/18 10:40 Dose: 160 mg - Objective Vital Signs: Vital Signs Temperature 98.6 F 06/22/18 05:22 Pulse Rate 96 H 06/22/18 05:20 Respiratory Rate 18 06/22/18 05:20 Blood Pressure 150/75 06/22/18 05:20 O2 Sat by Pulse Oximetry (%) 99 06/21/18 09:00 Eyes: Yes: WNL, Conjunctiva Clear, EOM Intact HENT: Yes: WNL, Atraumatic, Normocephalic Neck: Yes: WNL, Supple, Trachea Midline Cardiovascular: Yes: WNL, Regular Rate and Rhythm Respiratory: Yes: WNL, Regular, CTA Bilaterally Gastrointestinal: Yes: WNL, Normal Bowel Sounds Genitourinary: Yes: WNL Musculoskeletal: Yes: WNL Extremities: Yes: WNL Edema: No Integumentary: Yes: WNL Neurological: Yes: WNL, Alert, Oriented ...Motor Strength: WNL Psychiatric: Yes: WNL Labs: CBC, BMP 06/21/18 07:45 06/21/18 07:45 INR, PTT INR 1.13 (0.83-1.09) H 06/18/18 22:36 Assessment/Plan s/p r hip gamma nail POD #2 htn hlp Plan; f/u BP -elevated this am (prior to meds) Cardiac ball stable . cont dvt plx coverage for dr. Gordon
[2018-06-22 09:15] LABS: BASO % 0.4 % (0-2.0); EOS % 2.3 % (0-4.5); HEMATOCRIT 24.6 % (32.4-45.2); HEMOGLOBIN 8.1 GM/dL (10.7-15.3); LYMPH % 21.7 % (8-40); MCHC 32.9 g/dl (32.0-36.0); MEAN CELL VOLUME 85.1 fl (80-96); MEAN PLT VOLUME 9.3 fl (7.5-11.1); MONO % 9.2 % (3.8-10.2); NEUT % 66.4 % (42.8-82.8); PLATELET COUNT 159 K/MM3 (134-434); RBC 2.89 M/mm3 (3.60-5.2); RDW 13.8 % (11.6-15.6); WHITE BLOOD COUNT 10.1 K/mm3 (4.0-10.0)
[2018-06-22 10:09] LABS: ALBUMIN 2.6 g/dl (3.4-5.0); ALK PHOS 80 U/L (45-117); ANION GAP 6 MMOL/L (8-16); BILIRUBIN,TOTAL 0.8 mg/dL (0.2-1); BLOOD UREA NITROGEN 15 mg/dL (7-18); CALCIUM 7.8 mg/dL (8.5-10.1); CHLORIDE 106 mmol/L (98-107); CO2 29 mmol/L (21-32); CREATININE 0.6 mg/dL (0.55-1.3); GLUCOSE,RANDOM 83 mg/dL (74-106); POTASSIUM 4.2 mmol/L (3.5-5.1); SGOT/AST 27 U/L (15-37); SGPT/ALT 28 U/L (13-61); SODIUM 141 mmol/L (136-145); TOT PROT 5.1 g/dl (6.4-8.2)
[2018-06-22] MEDS: VALSARTAN 160 MG TABLET (UD) PO SCH (10:10)
[2018-06-22] MEDS: ENOXAPARIN NA (PORCINE) 40 MG/0.4 ML DISP.SYRIN SQ SCH (10:10)
[2018-06-22] MEDS: SOLIFENACIN SUCCINATE 5 MG TAB (FP) PO SCH (10:10)
[2018-06-22] MEDS: PANTOPRAZOLE 20 MG TABLET (FP) PO SCH (10:10)
[2018-06-22] MEDS ORDERED: PT OWN MED DRAWER 7, Y5N ONE (18:58)
--- NOTE | 2018-06-22 21:12 | PN ---
Progress Note, Physician History of Present Illness: No new changes - Current Medication List Current Medications: Active Medications Enoxaparin Sodium (Lovenox -) 40 mg SQ DAILY [facility] Last Admin: 06/22/18 10:10 Dose: 40 mg Dextrose/Sodium Chloride (D5-1/2ns -) 1,000 mls @ 100 mls/hr IV ASDIR [facility] Last Admin: 06/21/18 18:45 Dose: Not Given Lactated Ringer's (Lactated Ringers Solution) 1,000 mls @ 75 mls/hr IV ASDIR [facility] Last Admin: 06/21/18 18:44 Dose: 75 mls/hr Morphine Sulfate (Morphine Sulfate) 2 mg IVPUSH Q6H PRN PRN Reason: pain Last Admin: 06/21/18 18:54 Dose: 2 mg Ondansetron HCl (Zofran Injection) 4 mg IVPUSH Q6H PRN PRN Reason: NAUSEA Pantoprazole Sodium (Protonix -) 20 mg PO DAILY [facility] Last Admin: 06/22/18 10:10 Dose: 20 mg Rosuvastatin Calcium (Crestor -) 5 mg PO HS [facility] Last Admin: 06/21/18 21:52 Dose: Not Given Solifenacin (Vesicare -) 5 mg PO DAILY [facility] Last Admin: 06/22/18 10:10 Dose: 5 mg Valsartan (Diovan -) 160 mg PO DAILY [facility] Last Admin: 06/22/18 10:10 Dose: 160 mg - Objective Vital Signs: Vital Signs Temperature 98.8 F 06/22/18 18:00 Pulse Rate 98 H 06/22/18 18:00 Respiratory Rate 19 06/22/18 18:00 Blood Pressure 127/65 06/22/18 18:00 O2 Sat by Pulse Oximetry (%) 99 06/21/18 09:00 Neck: Yes: WNL, Supple Cardiovascular: Yes: WNL, Regular Rate and Rhythm Respiratory: Yes: WNL, Regular, CTA Bilaterally Gastrointestinal: Yes: WNL, Normal Bowel Sounds, Soft Labs: CBC, BMP 06/22/18 08:06 06/22/18 08:06 INR, PTT INR 1.13 (0.83-1.09) H 06/18/18 22:36 Problem List - Problems (1) Intertrochanteric fracture of right femur Assessment/Plan: S/P Rt hip gamma nail placement PT eval DC planning to STR Code(s): S72.141A - DISPLACED INTERTROCHANTERIC FRACTURE OF RIGHT FEMUR, INIT Qualifiers: Encounter type: initial encounter Fracture type: closed Fracture alignment: displaced Qualified Code(s): S72.141A - Displaced intertrochanteric fracture of right femur, initial encounter for closed fracture (2) HTN (hypertension) Assessment/Plan: Cont valsartan BP stable Code(s): I10 - ESSENTIAL (PRIMARY) HYPERTENSION (3) HLD (hyperlipidemia) Assessment/Plan: Cont crestor Code(s): E78.5 - HYPERLIPIDEMIA, UNSPECIFIED
[2018-06-22] MEDS: ROSUVASTATIN CA 5 MG TABLET (FP) PO SCH (21:38)
--- NOTE | 2018-06-23 08:42 | PN ---
Progress Note (short form) - Note Progress Note: Ortho Pt seen and examined s/p right IM gamma nail pod #3 Selected Entries 06/22/18 06/23/18 21:57 05:00 Temperature 99.0 F Pulse Rate 92 H Respiratory 20 Rate Blood Pressure 145/88 Laboratory Tests 06/22/18 08:06 WBC 10.1 H Hgb 8.1 L Hct 24.6 L Plt Count 159 dressing c/d/i, calf soft, nt nvi a/p transfuse 1 unit PRBCs f/u h/h PT dvt ppx- hold lovenox dose today- restart tomorrow pain control d/c planning
--- NOTE | 2018-06-23 09:03 | PN ---
Progress Note, Physician Chief Complaint: no distress Daughter at bedside - Current Medication List Current Medications: Active Medications Enoxaparin Sodium (Lovenox -) 40 mg SQ DAILY [facility] Last Admin: 06/22/18 10:10 Dose: 40 mg Dextrose/Sodium Chloride (D5-1/2ns -) 1,000 mls @ 100 mls/hr IV ASDIR [facility] Last Admin: 06/21/18 18:45 Dose: Not Given Lactated Ringer's (Lactated Ringers Solution) 1,000 mls @ 75 mls/hr IV ASDIR [facility] Last Admin: 06/21/18 18:44 Dose: 75 mls/hr Morphine Sulfate (Morphine Sulfate) 2 mg IVPUSH Q6H PRN PRN Reason: pain Last Admin: 06/21/18 18:54 Dose: 2 mg Ondansetron HCl (Zofran Injection) 4 mg IVPUSH Q6H PRN PRN Reason: NAUSEA Pantoprazole Sodium (Protonix -) 20 mg PO DAILY [facility] Last Admin: 06/22/18 10:10 Dose: 20 mg Rosuvastatin Calcium (Crestor -) 5 mg PO HS [facility] Last Admin: 06/22/18 21:38 Dose: 5 mg Solifenacin (Vesicare -) 5 mg PO DAILY [facility] Last Admin: 06/22/18 10:10 Dose: 5 mg Valsartan (Diovan -) 160 mg PO DAILY [facility] Last Admin: 06/22/18 10:10 Dose: 160 mg - Objective Vital Signs: Vital Signs Temperature 99.0 F 06/23/18 05:00 Pulse Rate 92 H 06/23/18 05:00 Respiratory Rate 20 06/22/18 21:57 Blood Pressure 145/88 06/23/18 05:00 O2 Sat by Pulse Oximetry (%) 94 L 06/22/18 21:00 Constitutional: Yes: No Distress Cardiovascular: Yes: Regular Rate and Rhythm Respiratory: Yes: CTA Bilaterally Gastrointestinal: Yes: Soft Edema: No Neurological: Yes: Alert, Oriented ...Motor Strength: WNL Labs: CBC, BMP 06/22/18 08:06 06/22/18 08:06 INR, PTT INR 1.13 (0.83-1.09) H 06/18/18 22:36 Laboratory Tests 06/22/18 06/22/18 08:06 08:06 WBC 10.1 H Hgb 8.1 L Plt Count 159 Sodium 141 Potassium 4.2 BUN 15 Creatinine 0.6 Assessment/Plan Assessment/Plan s/p r hip gamma nail htn hlp Plan: Tolerated surgery well. DVT prophylaxis Consider switching ARB (Valsartan to alternate agent: Olmesartan 40mg would be rough equivalent)
[2018-06-23] MEDS: VALSARTAN 160 MG TABLET (UD) PO SCH (09:44)
[2018-06-23] MEDS: PANTOPRAZOLE 20 MG TABLET (FP) PO SCH (09:45)
[2018-06-23] MEDS: SOLIFENACIN SUCCINATE 5 MG TAB (FP) PO SCH (09:45)
[2018-06-23] MEDS: DEXTROSE 5%-0.45% SALINE 1,000 ML IV SCH (14:38)
--- NOTE | 2018-06-23 18:44 | PN ---
Progress Note, Physician History of Present Illness: No new changes - Current Medication List Current Medications: Active Medications Enoxaparin Sodium (Lovenox -) 40 mg SQ DAILY [facility] Last Admin: 06/22/18 10:10 Dose: 40 mg Dextrose/Sodium Chloride (D5-1/2ns -) 1,000 mls @ 100 mls/hr IV ASDIR [facility] Last Admin: 06/23/18 14:38 Dose: Not Given Lactated Ringer's (Lactated Ringers Solution) 1,000 mls @ 75 mls/hr IV ASDIR [facility] Last Admin: 06/21/18 18:44 Dose: 75 mls/hr Ondansetron HCl (Zofran Injection) 4 mg IVPUSH Q6H PRN PRN Reason: NAUSEA Pantoprazole Sodium (Protonix -) 20 mg PO DAILY [facility] Last Admin: 06/23/18 09:45 Dose: 20 mg Rosuvastatin Calcium (Crestor -) 5 mg PO HS [facility] Last Admin: 06/22/18 21:38 Dose: 5 mg Solifenacin (Vesicare -) 5 mg PO DAILY [facility] Last Admin: 06/23/18 09:45 Dose: 5 mg Valsartan (Diovan -) 160 mg PO DAILY [facility] Last Admin: 06/23/18 09:44 Dose: 160 mg - Objective Vital Signs: Vital Signs Temperature 97.9 F 06/23/18 14:00 Pulse Rate 84 06/23/18 14:00 Respiratory Rate 16 06/23/18 09:00 Blood Pressure 96/48 L 06/23/18 14:00 O2 Sat by Pulse Oximetry (%) 93 L 06/23/18 09:00 Neck: Yes: WNL, Supple Cardiovascular: Yes: WNL, Regular Rate and Rhythm Respiratory: Yes: WNL, Regular, CTA Bilaterally Gastrointestinal: Yes: WNL, Normal Bowel Sounds, Soft Labs: CBC, BMP 06/22/18 08:06 06/22/18 08:06 INR, PTT INR 1.13 (0.83-1.09) H 06/18/18 22:36 Problem List - Problems (1) Anemia Assessment/Plan: s/p transfusion prbc's check h/h in am dc planning for am Code(s): D64.9 - ANEMIA, UNSPECIFIED (2) Intertrochanteric fracture of right femur Assessment/Plan: S/P Rt hip gamma nail placement PT eval DC planning Code(s): S72.141A - DISPLACED INTERTROCHANTERIC FRACTURE OF RIGHT FEMUR, INIT Qualifiers: Encounter type: initial encounter Fracture type: closed Fracture alignment: displaced Qualified Code(s): S72.141A - Displaced intertrochanteric fracture of right femur, initial encounter for closed fracture (3) HTN (hypertension) Assessment/Plan: Cont valsartan BP stable Code(s): I10 - ESSENTIAL (PRIMARY) HYPERTENSION (4) HLD (hyperlipidemia) Assessment/Plan: Cont crestor Code(s): E78.5 - HYPERLIPIDEMIA, UNSPECIFIED
[2018-06-23] MEDS ORDERED: PT OWN MED DRAWER 7, Y5N ONE (21:17)
[2018-06-23] MEDS: ROSUVASTATIN CA 5 MG TABLET (FP) PO SCH (21:37)
[2018-06-24] MEDS: LACTATED RINGERS SOLUTION 1,000 ML IV SCH (00:39)
--- NOTE | 2018-06-24 09:26 | PN ---
Progress Note, Physician Chief Complaint: no acute distress NO CP or SOB Denies palpitations - Current Medication List Current Medications: Active Medications Enoxaparin Sodium (Lovenox -) 40 mg SQ DAILY [facility] Last Admin: 06/22/18 10:10 Dose: 40 mg Dextrose/Sodium Chloride (D5-1/2ns -) 1,000 mls @ 100 mls/hr IV ASDIR [facility] Last Admin: 06/23/18 14:38 Dose: Not Given Lactated Ringer's (Lactated Ringers Solution) 1,000 mls @ 75 mls/hr IV ASDIR [facility] Last Admin: 06/24/18 00:39 Dose: 75 mls/hr Ondansetron HCl (Zofran Injection) 4 mg IVPUSH Q6H PRN PRN Reason: NAUSEA Pantoprazole Sodium (Protonix -) 20 mg PO DAILY [facility] Last Admin: 06/23/18 09:45 Dose: 20 mg Rosuvastatin Calcium (Crestor -) 5 mg PO HS [facility] Last Admin: 06/23/18 21:37 Dose: 5 mg Solifenacin (Vesicare -) 5 mg PO DAILY [facility] Last Admin: 06/23/18 09:45 Dose: 5 mg Valsartan (Diovan -) 160 mg PO DAILY [facility] Last Admin: 06/23/18 09:44 Dose: 160 mg - Objective Vital Signs: Vital Signs Temperature 98.3 F 06/24/18 06:29 Pulse Rate 73 06/24/18 06:29 Respiratory Rate 19 06/24/18 06:29 Blood Pressure 136/82 06/24/18 06:29 O2 Sat by Pulse Oximetry (%) 93 L 06/23/18 09:00 Constitutional: Yes: Calm Eyes: Yes: Conjunctiva Clear Cardiovascular: Yes: Regular Rate and Rhythm Respiratory: Yes: CTA Bilaterally Gastrointestinal: Yes: Soft Edema: No Neurological: Yes: Alert, Oriented Labs: CBC, BMP 06/22/18 08:06 06/22/18 08:06 INR, PTT INR 1.13 (0.83-1.09) H 06/18/18 22:36 Assessment/Plan Assessment/Plan s/p r hip gamma nail htn hlp Plan: Tolerated surgery well. DVT prophylaxis Consider switching ARB (Valsartan to alternate agent: Olmesartan 40mg would be rough equivalent)-- Can be done as outpt
[2018-06-24] MEDS: PANTOPRAZOLE 20 MG TABLET (FP) PO SCH (09:34)
[2018-06-24] MEDS: SOLIFENACIN SUCCINATE 5 MG TAB (FP) PO SCH (09:35)
[2018-06-24] MEDS: VALSARTAN 160 MG TABLET (UD) PO SCH (09:35)
[2018-06-24 10:13] LABS: BASO % 0.6 % (0-2.0); EOS % 2.2 % (0-4.5); LYMPH % 16.1 % (8-40); MCH 27.7 pg (25.7-33.7); MCHC 32.4 g/dl (32.0-36.0); MEAN CELL VOLUME 85.2 fl (80-96); MEAN PLT VOLUME 8.5 fl (7.5-11.1); MONO % 7.4 % (3.8-10.2); NEUT % 73.7 % (42.8-82.8); PLATELET COUNT 221 K/MM3 (134-434); RBC 3.63 M/mm3 (3.60-5.2); RDW 13.6 % (11.6-15.6); WHITE BLOOD COUNT 9.4 K/mm3 (4.0-10.0)
[2018-06-24] MEDS: ENOXAPARIN NA (PORCINE) 40 MG/0.4 ML DISP.SYRIN SQ SCH (11:36)
[2018-06-24] MEDS ORDERED: LINZESS 145MCG PO SCH (17:15)
[2018-06-24] MEDS: ACETAMINOPHEN 325 MG TABLET (FP) PO PRN (18:10)
--- NOTE | 2018-06-24 18:41 | PN ---
Progress Note, Physician History of Present Illness: Pt w/ constipation - Current Medication List Current Medications: Active Medications Acetaminophen (Tylenol -) 650 mg PO Q6H PRN PRN Reason: PAIN LEVEL 1-5 Last Admin: 06/24/18 18:10 Dose: 650 mg Docusate Sodium (Colace -) 300 mg PO HS [facility] Enoxaparin Sodium (Lovenox -) 40 mg SQ DAILY [facility] Last Admin: 06/24/18 11:36 Dose: 40 mg Lactated Ringer's (Lactated Ringers Solution) 1,000 mls @ 75 mls/hr IV ASDIR [facility] Last Admin: 06/24/18 00:39 Dose: 75 mls/hr Linzess 145mcg 1 each PO DAILY [facility] Ondansetron HCl (Zofran Injection) 4 mg IVPUSH Q6H PRN PRN Reason: NAUSEA Pantoprazole Sodium (Protonix -) 20 mg PO DAILY [facility] Last Admin: 06/24/18 09:34 Dose: 20 mg Rosuvastatin Calcium (Crestor -) 5 mg PO HS [facility] Last Admin: 06/23/18 21:37 Dose: 5 mg Senna (Senna -) 1 tab PO HS [facility] Solifenacin (Vesicare -) 5 mg PO DAILY [facility] Last Admin: 06/24/18 09:35 Dose: 5 mg Valsartan (Diovan -) 160 mg PO DAILY [facility] Last Admin: 06/24/18 09:35 Dose: 160 mg - Objective Vital Signs: Vital Signs Temperature 98.8 F 06/24/18 14:28 Pulse Rate 101 H 06/24/18 14:28 Respiratory Rate 19 06/24/18 11:54 Blood Pressure 135/56 L 06/24/18 14:28 O2 Sat by Pulse Oximetry (%) 95 06/24/18 09:00 Neck: Yes: WNL, Supple Cardiovascular: Yes: WNL, Regular Rate and Rhythm Respiratory: Yes: WNL, Regular, CTA Bilaterally Gastrointestinal: Yes: WNL, Normal Bowel Sounds, Soft Labs: CBC, BMP 06/24/18 09:40 06/22/18 08:06 INR, PTT INR 1.13 (0.83-1.09) H 06/18/18 22:36 Problem List - Problems (1) Anemia Assessment/Plan: s/p transfusion prbc's Acute blood loss anemia Monitor h/h Code(s): D64.9 - ANEMIA, UNSPECIFIED (2) Constipation Assessment/Plan: Abdominal xray was normal Cont stool softners Code(s): K59.00 - CONSTIPATION, UNSPECIFIED (3) Intertrochanteric fracture of right femur Assessment/Plan: S/P Rt hip gamma nail placement PT eval DC planning Code(s): S72.141A - DISPLACED INTERTROCHANTERIC FRACTURE OF RIGHT FEMUR, INIT Qualifiers: Encounter type: initial encounter Fracture type: closed Fracture alignment: displaced Qualified Code(s): S72.141A - Displaced intertrochanteric fracture of right femur, initial encounter for closed fracture (4) HTN (hypertension) Assessment/Plan: Cont valsartan BP stable Code(s): I10 - ESSENTIAL (PRIMARY) HYPERTENSION (5) HLD (hyperlipidemia) Assessment/Plan: Cont crestor Code(s): E78.5 - HYPERLIPIDEMIA, UNSPECIFIED
[2018-06-24] MEDS ORDERED: DOCUSATE SODIUM 100 MG CAPSULE (FP) PO SCH (22:00)
[2018-06-24] MEDS ORDERED: SENNOSIDES 8.6MG TABLET (FP) PO SCH (22:00)
[2018-06-24] MEDS: ROSUVASTATIN CA 5 MG TABLET (FP) PO SCH (22:07)
--- NOTE | 2018-06-25 08:51 | PN ---
Progress Note, Physician Chief Complaint: no chest pain or SOB Denies palpitations. No PND - Current Medication List Current Medications: Active Medications Acetaminophen (Tylenol -) 650 mg PO Q6H PRN PRN Reason: PAIN LEVEL 1-5 Last Admin: 06/24/18 18:10 Dose: 650 mg Docusate Sodium (Colace -) 300 mg PO HS [facility] Last Admin: 06/24/18 22:07 Dose: 300 mg Enoxaparin Sodium (Lovenox -) 40 mg SQ DAILY [facility] Last Admin: 06/24/18 11:36 Dose: 40 mg Linzess 145mcg 1 each PO DAILY [facility] Ondansetron HCl (Zofran Injection) 4 mg IVPUSH Q6H PRN PRN Reason: NAUSEA Pantoprazole Sodium (Protonix -) 20 mg PO DAILY [facility] Last Admin: 06/24/18 09:34 Dose: 20 mg Polyethylene Glycol (Miralax (For Daily Use) -) 17 gm PO DAILY [facility] Rosuvastatin Calcium (Crestor -) 5 mg PO HS [facility] Last Admin: 06/24/18 22:07 Dose: 5 mg Senna (Senna -) 1 tab PO HS [facility] Last Admin: 06/24/18 22:07 Dose: 1 tab Solifenacin (Vesicare -) 5 mg PO DAILY [facility] Last Admin: 06/24/18 09:35 Dose: 5 mg Valsartan (Diovan -) 160 mg PO DAILY [facility] Last Admin: 06/24/18 09:35 Dose: 160 mg - Objective Vital Signs: Vital Signs Temperature 98.0 F 06/25/18 05:52 Pulse Rate 94 H 06/25/18 05:52 Respiratory Rate 20 06/25/18 05:52 Blood Pressure 132/74 06/25/18 05:52 O2 Sat by Pulse Oximetry (%) 98 06/24/18 21:00 Constitutional: Yes: Calm Cardiovascular: Yes: Regular Rate and Rhythm Respiratory: Yes: CTA Bilaterally Gastrointestinal: Yes: Soft Edema: No Neurological: Yes: Alert, Oriented Labs: CBC, BMP 06/24/18 09:40 06/22/18 08:06 INR, PTT INR 1.13 (0.83-1.09) H 06/18/18 22:36 Laboratory Tests 06/22/18 06/24/18 08:06 09:40 WBC 9.4 Hgb 10.0 L Hct 31.0 L D Plt Count 221 D Sodium 141 Potassium 4.2 BUN 15 Creatinine 0.6 Total Bilirubin 0.8 AST 27 ALT 28 Alkaline Phosphatase 80 Assessment/Plan Assessment/Plan s/p r hip gamma nail htn hlp Plan: Tolerated surgery well. DVT prophylaxis Consider switching ARB (Valsartan to alternate agent: Olmesartan 40mg would be rough equivalent)-- Can be done as outpt Signing off today- please call again as/if needed.
[2018-06-25] MEDS: VALSARTAN 160 MG TABLET (UD) PO SCH (09:12)
[2018-06-25] MEDS: ENOXAPARIN NA (PORCINE) 40 MG/0.4 ML DISP.SYRIN SQ SCH (09:12)
[2018-06-25] MEDS: PANTOPRAZOLE 20 MG TABLET (FP) PO SCH (09:12)
[2018-06-25] MEDS: SOLIFENACIN SUCCINATE 5 MG TAB (FP) PO SCH (09:12)
[2018-06-25] MEDS ORDERED: POLYETHYLENE GLYCOL 3350 119 GM BTL PO SCH (10:00)
--- NOTE | 2018-06-25 10:45 | PN ---
Progress Note (short form) - Note Progress Note: Pt seen and examined, trying to ambulate with P.T., progressing very slowly with P.T. Moderate c/o pain with ambulation. AVSS H/H stable 06/10 B/L LE are NVI with good ROM throughout, but motion causes pain at the right hip and thigh Overall doing well. DC to SNF planned Follow up in the office in 1-2 weeks
[2018-06-25] MEDS: ACETAMINOPHEN 325 MG TABLET (FP) PO PRN (12:05)
[2018-06-25 13:46] VITALS: BP 119/57; PULSE 87; TEMP 98.5
== END 2018-06-25 15:12 | disposition home health service (06) | DRG 481 ==
LOC: JER 20:35 → JERBED 06-19 02:24 → J6S 06-19 14:05
PROVIDERS: ADMIT Internal Medicine; ATTEND Internal Medicine
PROC: 0QS604Z Reposition Right Upper Femur with Internal Fixation Device, Open Approach (ICD-10-PCS; principal; 2018-06-20 11:00)
PROC: 30233N1 Transfusion of Nonautologous Red Blood Cells into Peripheral Vein, Percutaneous Approach (ICD-10-PCS; 2018-06-23)
DX: S72.141A Displaced intertrochanteric fracture of right femur, initial encounter for closed fracture (principal); D62 Acute posthemorrhagic anemia; F32.9 Major depressive disorder, single episode, unspecified; I10 Essential (primary) hypertension; E78.5 Hyperlipidemia, unspecified; K59.00 Constipation, unspecified; W17.89XA Other fall from one level to another, initial encounter; Y92.098 Other place in other non-institutional residence as the place of occurrence of the external cause
CPT/HCPCS: 36415; 36430; 70450-TC; 71046-TC-FY; 72125-TC; 73060-TC-RT-FY; 73523-TC-FY; 74019-TC-FY; 80048; 80053; 82962; 85025; 85610; 85730; 86850; 86870; 86880; 86900; 86901; 86902; 86922; 93005; 93010; 93306-TC; 94760; 97116-GP; 97161-GP; 99283-25; J0131; P9038; P9058

== ENCOUNTER 2018-06-26 14:31 | Inpatient (IN) | payer OTHER ==
--- NOTE | 2018-06-26 14:46 | PDOC ---
History of Present Illness - General History Source: Family Exam Limitations: No Limitations - History of Present Illness Initial Comments: This is a 78 year old female, with a significant past medical history of right intertrochanteric femur fracture status post gamma nailing on 06/20/18 (patient was recently discharged on 06/25/18), HTN, HLD, and recurrent epistaxis, who presents to the emergency department today complaining of two days of RLE pain. As per her grandson, patient was complaining of RLE pain since her discharge yesterday. He notes that the patient only tried walking once, from her bedroom to their apartment door, but has not walked since. The grandson states that the patient was given Tylenol to take after discharge, but it has not helped with the pain. Patient was also advised to go to a [facility] and begin rehab, which she denied at the time. Patients grandson states she has had normal bowel movements, and her last meal was this morning. He also notes that the patient has not had any complaints of new/different pains. Denies any recent trauma or injury. Denies fevers, denies chill. Denies nausea, denies vomit. Allergies: NKDA Surgical hx: Right intertrochanteric femur fracture gamma nailing (06/20/18) PCP: Dr. Bassem Mariano 06/26/18 16:25 <Tanisha Reyes - Last Filed: 06/26/18 16:25> <Selina Bach - Last Filed: 06/30/18 22:40> - General Chief Complaint: Pain, Acute Stated Complaint: LEG PAIN Time Seen by Provider: 06/26/18 14:46 Past History <Tanisha Reyes - Last Filed: 06/26/18 16:25> - Past Medical History COPD: No HTN: Yes Hypercholesterolemia: Yes Psychiatric Problems: Yes (Depression) - Surgical History Abdominal Surgery: Yes (appendectomy) Appendectomy: Yes - Immunization History Immunization Up to Date: Yes - Suicide/Smoking/Psychosocial Hx Smoking History: Never smoked Have you smoked in the past 12 months: No Hx Alcohol Use: No Substance Use Type: None <Selina Bach - Last Filed: 06/30/18 22:40> - Past Medical History Allergies/Adverse Reactions: Allergies Allergy/AdvReac Type Severity Reaction Status Date / Time No Known Allergies Allergy Verified 10/09/14 11:48 Home Medications: Ambulatory Orders Aspirin [ASA -] 81 mg PO ASDIR 10/09/14 Escitalopram Oxalate [Lexapro -] 10 mg PO DAILY 10/09/14 Olmesartan Medoxomil [Benicar -] 20 mg PO DAILY 10/09/14 Omeprazole [Prilosec (RX)] 20 mg PO DAILY 10/09/14 Rosuvastatin Calcium [Crestor] 5 mg PO HS 10/09/14 Solifenacin Succinate [Vesicare] 5 mg PO DAILY 10/09/14 Review of Systems - Review of Systems Able to Perform ROS?: Yes Comments:: GENERAL/CONSTITUTIONAL: No fever or chills. No weakness. HEAD, EYES, EARS, NOSE AND THROAT: No change in vision. No ear pain or discharge. No sore throat. CARDIOVASCULAR: No chest pain or shortness of breath. RESPIRATORY: No cough, wheezing, or hemoptysis. GASTROINTESTINAL: No nausea, vomiting, diarrhea or constipation. GENITOURINARY: No dysuria, frequency, or change in urination. MUSCULOSKELETAL: +RLE pain. No neck or back pain. SKIN: No rash NEUROLOGIC: No headache, vertigo, loss of consciousness, or change in strength/ sensation. ENDOCRINE: No increased thirst. No abnormal weight change. HEMATOLOGIC/LYMPHATIC: No anemia, easy bleeding, or history of blood clots. ALLERGIC/IMMUNOLOGIC: No hives or skin allergy. 06/26/18 16:25 <Tanisha Reyes - Last Filed: 06/26/18 16:25> *Physical Exam - Vital Signs Last Vital Signs Temp Pulse Resp BP Pulse Ox 97 F L 90 16 136/61 94 L 06/26/18 14:35 06/26/18 14:35 06/26/18 14:35 06/26/18 14:35 06/26/18 14:35 - Physical Exam Comments: GENERAL: Awake, alert, and fully oriented, in no acute distress HEAD: No signs of trauma EYES: PERRLA, EOMI, sclera anicteric, conjunctiva clear ENT: Auricles normal inspection, hearing grossly normal, nares patent, oropharynx clear without exudates. Moist mucosa NECK: Normal ROM, supple, no lymphadenopathy, JVD, or masses LUNGS: Breath sounds equal, clear to auscultation bilaterally. No wheezes, and no crackles HEART: Regular rate and rhythm, normal S1 and S2, no murmurs, rubs or gallops ABDOMEN: Soft, nontender, normoactive bowel sounds. No guarding, no rebound. No masses EXTREMITIES:+Two small surgical incisions on the right thigh and incisions are clean, dry, intact. +Diffuse tenderness to the right thigh. +Mild tenderness to the right knee. No surrounding erythema. No clubbing or cyanosis. No cords. NEUROLOGICAL: Cranial nerves II through XII grossly intact. Normal speech, normal gait SKIN: Warm, Dry, normal turgor, no rashes or lesions noted. 06/26/18 16:26 <Tanisha Reyes - Last Filed: 06/26/18 16:25> ED Treatment Course - Consult/PCP Time Called: 15:29 (Spoke with Dr. Tillman concerning patient. ) Case discussed with personal care physician: Fatuma Tillman <Tanisha Reyes - Last Filed: 06/26/18 16:25> - LABORATORY CBC & Chemistry Diagram: 06/27/18 09:52 06/27/18 09:52 <Selina Bach - Last Filed: 06/30/18 22:40> Medical Decision Making - Medical Decision Making 06/30/18 22:38 Pt presents to the eD after discharged home after femur fracture. PAtient and family apparently refused rehab placement during her previous admission and she was discharged home yesterday. Presents today because family has realized that they are unable to care for her at home. Case discussed with Dr. Tillman. Will admit to medicine for rehab placement. <Selina Bach - Last Filed: 06/30/18 22:40> *DC/Admit/Observation/Transfer - Attestations Scribe Attestion: 06/26/18 16:26 Documentation prepared by ROSELIA Cam, acting as medical staff services coordinator for Selina Bach MD. <Tanisha Reyes - Last Filed: 06/26/18 16:25> - Discharge Dispostion Decision to Admit order: Yes <Selina Bach - Last Filed: 06/30/18 22:40> Diagnosis at time of Disposition: Intertrochanteric fracture of right femur Qualifiers: Encounter type: subsequent encounter Fracture type: closed Fracture alignment: nondisplaced Fracture healing: with routine healing Qualified Code(s): S72.144D - Nondisplaced intertrochanteric fracture of right femur, subsequent encounter for closed fracture with routine healing - Discharge Dispostion Disposition: [facility] Condition at time of disposition: Good
[2018-06-26 16:55] LABS: BASO % 0.6 % (0-2.0); EOS % 0.6 % (0-4.5); HEMATOCRIT 33.1 % (32.4-45.2); LYMPH % 13.7 % (8-40); MCH 28.6 pg (25.7-33.7); MCHC 33.3 g/dl (32.0-36.0); MEAN CELL VOLUME 85.9 fl (80-96); MEAN PLT VOLUME 8.3 fl (7.5-11.1); MONO % 8.1 % (3.8-10.2); PLATELET COUNT 354 K/MM3 (134-434); RBC 3.86 M/mm3 (3.60-5.2); RDW 13.7 % (11.6-15.6); WHITE BLOOD COUNT 11.5 K/mm3 (4.0-10.0)
[2018-06-26 17:42] LABS: ALK PHOS 123 U/L (45-117); ANION GAP 9 MMOL/L (8-16); BILIRUBIN,TOTAL 2.1 mg/dL (0.2-1); BLOOD UREA NITROGEN 29 mg/dL (7-18); CALCIUM 8.5 mg/dL (8.5-10.1); CHLORIDE 106 mmol/L (98-107); CO2 27 mmol/L (21-32); CREATININE 0.7 mg/dL (0.55-1.3); GLUCOSE,RANDOM 106 mg/dL (74-106); POTASSIUM 4.2 mmol/L (3.5-5.1); SGOT/AST 36 U/L (15-37); SGPT/ALT 40 U/L (13-61); SODIUM 141 mmol/L (136-145); TOT PROT 6.2 g/dl (6.4-8.2)
[2018-06-27 01:05] VITALS: BMI 21.6
[2018-06-27] MEDS ORDERED: ACETAMINOPHEN 325 MG TABLET (FP) PO PRN (05:31)
[2018-06-27] MEDS: DOCUSATE SODIUM 100 MG CAPSULE (FP) PO SCH ×2 (06:44→13:29)
[2018-06-27] MEDS ORDERED: SOLIFENACIN SUCCINATE 5 MG TAB (FP) PO SCH (10:00)
[2018-06-27] MEDS ORDERED: PANTOPRAZOLE 20 MG TABLET (FP) PO SCH (10:00)
[2018-06-27] MEDS ORDERED: HEPARIN NA (PORCINE) 5,000 UNITS/ML 1ML VIAL SQ SCH (10:00)
[2018-06-27] MEDS ORDERED: ESCITALOPRAM OXALATE 10 MG TABLET (FP) PO SCH (10:00)
[2018-06-27] MEDS ORDERED: ASPIRIN 81 MG CHEWABLE TABLETS PO SCH (10:00)
[2018-06-27] MEDS ORDERED: VALSARTAN 160 MG TABLET (UD) PO SCH (10:00)
[2018-06-27 10:20] LABS: BASO % 0.8 % (0-2.0); EOS % 1.9 % (0-4.5); HEMATOCRIT 32.2 % (32.4-45.2); HEMOGLOBIN 10.5 GM/dL (10.7-15.3); LYMPH % 17.5 % (8-40); MCH 28.3 pg (25.7-33.7); MCHC 32.7 g/dl (32.0-36.0); MEAN CELL VOLUME 86.6 fl (80-96); MONO % 8.1 % (3.8-10.2); NEUT % 71.7 % (42.8-82.8); PLATELET COUNT 318 K/MM3 (134-434); RBC 3.72 M/mm3 (3.60-5.2); WHITE BLOOD COUNT 7.9 K/mm3 (4.0-10.0)
[2018-06-27 11:05] LABS: ALBUMIN 2.8 g/dl (3.4-5.0); ALK PHOS 119 U/L (45-117); ANION GAP 10 MMOL/L (8-16); BILIRUBIN,TOTAL 2.1 mg/dL (0.2-1); BLOOD UREA NITROGEN 32 mg/dL (7-18); CALCIUM 8.5 mg/dL (8.5-10.1); CHLORIDE 106 mmol/L (98-107); CO2 24 mmol/L (21-32); CREATININE 0.8 mg/dL (0.55-1.3); GLUCOSE,RANDOM 114 mg/dL (74-106); SGOT/AST 36 U/L (15-37); SGPT/ALT 34 U/L (13-61); SODIUM 140 mmol/L (136-145); TOT PROT 5.9 g/dl (6.4-8.2)
--- NOTE | 2018-06-27 13:54 | HP ---
Admitting History and Physical - Past Medical History Cardiovascular: Yes: HTN, Hyperlipdemia - Past Surgical History Past Surgical History: Yes: None - Smoking History Smoking history: Never smoked Have you smoked in the past 12 months: No - Alcohol/Substance Use Hx Alcohol Use: No Home Medications - Allergies Allergies/Adverse Reactions: Allergies Allergy/AdvReac Type Severity Reaction Status Date / Time No Known Allergies Allergy Verified 10/09/14 11:48 - Home Medications Home Medications: Ambulatory Orders Aspirin [ASA -] 81 mg PO ASDIR 10/09/14 Escitalopram Oxalate [Lexapro -] 10 mg PO DAILY 10/09/14 Olmesartan Medoxomil [Benicar -] 20 mg PO DAILY 10/09/14 Omeprazole [Prilosec (RX)] 20 mg PO DAILY 10/09/14 Rosuvastatin Calcium [Crestor] 5 mg PO HS 10/09/14 Solifenacin Succinate [Vesicare] 5 mg PO DAILY 10/09/14 Physical Examination Vital Signs: Vital Signs Temperature 98.6 F 06/27/18 04:43 Pulse Rate 87 06/27/18 04:43 Respiratory Rate 20 06/27/18 09:00 Blood Pressure 139/69 06/27/18 04:43 O2 Sat by Pulse Oximetry (%) 95 06/27/18 09:00 Labs: CBC, BMP 06/27/18 09:52 06/27/18 09:52
[2018-06-27 13:58] VITALS: BP 132/65; PULSE 95; TEMP 98.5
[2018-06-27] MEDS ORDERED: ROSUVASTATIN CA 5 MG TABLET (FP) PO SCH (22:00)
== END 2018-06-27 18:19 | DRG 561 ==
LOC: JER 14:31 → JERBED 15:40 → J6S 21:15
PROVIDERS: ADMIT Internal Medicine; ATTEND Internal Medicine
DX: S72.144D Nondisplaced intertrochanteric fracture of right femur, subsequent encounter for closed fracture with routine healing (principal); I10 Essential (primary) hypertension; E78.5 Hyperlipidemia, unspecified; F32.9 Major depressive disorder, single episode, unspecified
CPT/HCPCS: 36415; 80053; 85025; 97116-GP; 97162-GP; 99283-25; J1644

== ENCOUNTER 2019-02-22 14:17 | Emergency (ER) | payer OTHER ==
[2019-02-22 14:27] VITALS: BMI 41.4
[2019-02-22 15:57] LABS: BASO % 0.4 % (0-2.0); EOS % 1.2 % (0-4.5); HEMOGLOBIN 12.4 GM/dL (10.7-15.3); LYMPH % 19.9 % (8-40); MCH 28.4 pg (25.7-33.7); MCHC 32.7 g/dl (32.0-36.0); MEAN CELL VOLUME 86.9 fl (80-96); MEAN PLT VOLUME 8.2 fl (7.5-11.1); MONO % 8.6 % (3.8-10.2); NEUT % 69.9 % (42.8-82.8); PLATELET COUNT 212 K/MM3 (134-434); RBC 4.37 M/mm3 (3.60-5.2); RDW 14.2 % (11.6-15.6); WHITE BLOOD COUNT 11.2 K/mm3 (4.0-10.0)
[2019-02-22 16:05] LABS: ALBUMIN 3.2 g/dl (3.4-5.0); ALK PHOS 70 U/L (45-117); ANION GAP 8 MMOL/L (8-16); BILIRUBIN,TOTAL 0.6 mg/dL (0.2-1); BLOOD UREA NITROGEN 51.4 mg/dL (7-18); CALCIUM 8.5 mg/dL (8.5-10.1); CHLORIDE 108 mmol/L (98-107); CO2 28 mmol/L (21-32); CREATININE 1.1 mg/dL (0.55-1.3); GLUCOSE,RANDOM 101 mg/dL (74-106); POTASSIUM 3.9 mmol/L (3.5-5.1); SGOT/AST 38 U/L (15-37); SGPT/ALT 38 U/L (13-61); SODIUM 144 mmol/L (136-145); TOT PROT 6.1 g/dl (6.4-8.2)
--- NOTE | 2019-02-22 16:34 | PDOC ---
History of Present Illness - General Chief Complaint: Injury Stated Complaint: FALL Time Seen by Provider: 02/22/19 14:29 History Source: Patient, Family Exam Limitations: No Limitations - History of Present Illness Initial Comments: 02/22/19 16:22 HPI: 83yo woman pmh HTN, HLD, recurrent epistaxis, s/p fall and R hip repair presenting after being found this morning following unwitnessed fall. Pt lives at home in her apartment with an aid during the day and alone overnight. Aid put pt to bed last night, returned this morning to find her in another room laying on her back with loss of urine away from her walker which she uses to ambulate at baseline. Pt does not recall precipitating events and cannot say if she lost consciousness or why she was out of bed. She has no history of arrhythmia, palpitations, or syncope. Denies fevers, chills, SOB, chest pain, nausea, vomiting, poor PO, cough, bloody or dark stools. She endorses hitting her head and reports pain in her head, neck, back, right hip. Patient reports head pain, history unclear if headache or pain from the fall. On ASA 81mg at home, no other anticoagulation. Grandson at bedside states she is less interactive than usual, but she appropriately answers and asks questions about her care. Oriented to person, place, and baseline disoriented to date. PMH: see chart PSH: see chart All: KNDA Meds: per chart Past History - Travel Traveled outside of the country in the last 30 days: No Close contact w/someone who was outside of country & ill: No - Past Medical History Allergies/Adverse Reactions: Allergies Allergy/AdvReac Type Severity Reaction Status Date / Time No Known Allergies Allergy Verified 02/22/19 14:23 Home Medications: Ambulatory Orders Aspirin [ASA -] 81 mg PO ASDIR 10/09/14 Escitalopram Oxalate [Lexapro -] 10 mg PO DAILY 10/09/14 Olmesartan Medoxomil [Benicar -] 20 mg PO DAILY 10/09/14 Omeprazole [Prilosec (RX)] 20 mg PO DAILY 10/09/14 Rosuvastatin Calcium [Crestor] 5 mg PO HS 10/09/14 Solifenacin Succinate [Vesicare] 5 mg PO DAILY 10/09/14 COPD: No CHF: No HTN: Yes Hypercholesterolemia: Yes Psychiatric Problems: Yes (Depression) - Surgical History Abdominal Surgery: Yes (appendectomy) Appendectomy: Yes - Immunization History Immunization Up to Date: Yes - Suicide/Smoking/Psychosocial Hx Smoking History: Never smoked Have you smoked in the past 12 months: No Information on smoking cessation initiated: No Hx Alcohol Use: No Drug/Substance Use Hx: No Substance Use Type: None Hx Substance Use Treatment: No Review of Systems - Review of Systems Able to Perform ROS?: Yes Is the patient limited Mongolian proficient: Yes Constitutional: No: Chills, Diaphoresis, Fever, Loss of Appetite, Weakness HEENTM: No: Symptoms Reported Respiratory: No: Cough, Shortness of Breath, Stridor, Wheezing Cardiac (ROS): No: Chest Pain, Irregular Heart Rate, Lightheadedness, Palpitations ABD/GI: No: Abdominal Distended, Constipated, Diarrhea, Nausea, Poor Appetite, Poor Fluid Intake, Vomiting : No: Symptoms Reported, Burning, Dysuria, Discharge, Frequency Musculoskeletal: Yes: Back Pain, Muscle Pain, Neck Pain Integumentary: No: Bruising, Change in Color, Lumps Neurological: Yes: Headache. No: Numbness, Paresthesia, Seizure, Tingling All Other Systems: Reviewed and Negative *Physical Exam - Vital Signs Last Vital Signs Temp Pulse Resp BP Pulse Ox 97.3 F L 89 20 145/78 96 02/22/19 14:23 02/22/19 14:23 02/22/19 14:23 02/22/19 14:23 02/22/19 14:23 - Physical Exam Comments: 02/22/19 16:39 Vitals reviewed, stable Gen: elderly woman laying in bed under a blanket, pleasant, no acute distress HEENT: normal morphologies, nontender head and face, able to range head, EOMI, throat soft, nontender, no ecchymosis Back: cervical and thoracic spine tenderness, mild tenderness on left posterior ribs CV: RRR, nl s1/s2, without murmurs rubs or gallops appreciated Pulm: CTABL, normal work of breathing, no wheezes rales or rhonchi Abd: soft, nontender, nondistended, no scars or markings Ext: no bruising, swelling, or gross displacement evident, warm and well perfused, R and left hip tenderness, pelvis stable, no distal UE or LE tenderness Neuro: alert and oriented, appropriately responsive ED Treatment Course - LABORATORY CBC & Chemistry Diagram: 02/22/19 15:38 02/22/19 15:38 - ADDITIONAL ORDERS Additional order review: Laboratory Results 02/22/19 15:38 Sodium 144 Potassium 3.9 Chloride 108 H Carbon Dioxide 28 Anion Gap 8 BUN 51.4 H Creatinine 1.1 Est GFR (CKD-EPI)AfAm 53.02 Est GFR (CKD-EPI)NonAf 45.74 Random Glucose 101 Calcium 8.5 Total Bilirubin 0.6 AST 38 H ALT 38 Alkaline Phosphatase 70 Creatine Kinase 117 Troponin I < 0.02 Total Protein 6.1 L Albumin 3.2 L 02/22/19 15:38 RBC 4.37 MCV 86.9 MCHC 32.7 RDW 14.2 MPV 8.2 Neutrophils % 69.9 Lymphocytes % 19.9 Monocytes % 8.6 Eosinophils % 1.2 Basophils % 0.4 - RADIOLOGY Radiology Studies Ordered: Category Date Time Status CERVICAL SPINE CT W/O CONTR [CT] Stat CT Scan 02/22/19 15:[address] WITHOUT CONTRAST [CT] Stat CT Scan 02/22/19 15:11 Ordered CHEST X-RAY PORTABLE* [RAD] Stat Radiology 02/22/19 15:11 Ordered HIP & PELVIS-LEFT [RAD] Stat Radiology 02/22/19 15:11 Ordered HIP-RIGHT [RAD] Stat Radiology 02/22/19 15:11 Ordered SPINE-LUMBAR SACRAL [RAD] Stat Radiology 02/22/19 15:11 Ordered SPINE-THORACIC [RAD] Stat Radiology 02/22/19 15:11 Ordered Medical Decision Making - Medical Decision Making 02/22/19 16:48 83yo woman pmh HTN, HLD, recurrent epistaxis, s/p fall and R hip repair 06/30 presenting after being found this morning following unwitnessed fall. Concerning for trauma. Unclear etiology of fall; syncope vs mechanical. Pt returned to baseline mental status after being found, no history of arrhythmia, stroke, or clot. No urinary or infectious symptoms. Pt euvolemic in the department and HDS making hypovolemic syncope unlikely. Mechanical fall appears most likely given absence of walker near patient indicating it was not being used at the time of fall. - N[facility]CT, C-spine CT w/o contrast - CXR AP/Lat, Thoracic and lumbar spine xray, R/L hip and pelvis xray - CBC, CMP, UA, Cardiac profile - EKG normal 02/22/19 17:16 - BUN mildly elevated - IVF bolus - no acetaminophen at this point, no focal pain/tenderness 02/22/19 17:41 - CBC with mild leukocytosis, troponin negative - plan to walk the patient prior to dispo - straight cath for urine - Larry Joshi [phone] would liked to be called prior to disposition 02/22/19 19:50 - N[facility]CT without acute pathology on my read. Chronic changes present. 02/22/19 21:33 - PT CTs and Xrays within normal limits - Able to stand and walk in place without pain - Refused urine cath for UA, pt asymptomatic - Ready for discharge - Family requesting EMS transport, ambulates with a walker only Dispo: Home *DC/Admit/Observation/Transfer Diagnosis at time of Disposition: Accident due to mechanical fall without injury Qualifiers: Encounter type: initial encounter Qualified Code(s): W19.XXXA - Unspecified fall, initial encounter - Discharge Dispostion Disposition: HOME Condition at time of disposition: Stable Decision to Admit order: No - Referrals Referrals: Bassem Mariano MD [Primary Care Provider] - - Patient Instructions Printed Discharge Instructions: How to Prevent Falls - Post Discharge Activity
[2019-02-22] MEDS ORDERED: SODIUM CHLORIDE 1,000 ML IV ONE (16:58)
--- NOTE | 2019-02-22 18:21 | PDOC ---
Documentation entered by Ysabel Palafox SCRIBE, acting as scribe for George Negron MD. George Negron MD: This documentation has been prepared by the scribe, Ysabel Palafox SCRIBE, under my direction and personally reviewed by me in its entirety. I confirm that the documentation accurately reflects all work, treatment, procedures, and medical decision making performed by me. Attending Attestation - Resident Resident Name: Brian Singh - ED Attending Attestation I have performed the following: I have examined & evaluated the patient, The case was reviewed & discussed with the resident, I agree w/resident's findings & plan, Exceptions are as noted - HPI HPI: 02/22/19 15:08 The patient is an 83-year-old female, with a past medical history of HTN, HLD, recurrent epistaxis, who presents to the ED s/p unwitnessed fall overnight. Chika is at bedside and reports that she has someone who stays with her during the day and put her to bed last night. She was found this morning in a different room away from her walker and laying in a puddle of urine. The patient states that she does not recall how she fell but recalls feeling wet all over. She is complaining of facial pain, neck pain, and RT hip pain. Chika states that she is not at her baseline and is usually more interactive. The patient denies fevers, chills, nausea, vomiting, diarrhea, or abdominal pain. Denies any chest pain, palpitations or shortness of breath. Allergies: NKA Social History: None reported. Surgical History: Appendectomy. PCP: Dr. Mariano - Physicial Exam PE: 02/22/19 15:09 GENERAL: The patient is awake, alert HEAD: Normocephalic, atraumatic. EYES: extraocular movements intact, sclera anicteric, conjunctiva clear. ENT: Normal voice, Moist mucous membranes. NECK: ild tenderness at C7 i nmidline LUNGS: Breath sounds equal, clear to auscultation bilaterally. No wheezes, no rhonchi, no rales, mild ttp at L lateral chets wall HEART: Regular rate and rhythm, without murmur, rub or gallop. ABDOMEN: Soft, nontender, No guarding, no rebound.No CVA tenderness EXTREMITIES: mild diffuse tenderness at b/l hips, NEUROLOGICAL: No facial assymetry, Normal speech, PSYCH: Normal mood, normal affect. SKIN: Warm, Dry, normal turgor. Back: No midline tenderness to the cervical, thoracic or lumbar spine Musculoskelatal: FROM of b/l shoulders, elbows, wrist. FROM of hips, knees, ankles - No signs of ecchymosis, erythema, or crepitus noted on palpation extremities, chest wall, clavicals, ribs, back. - Medical Decision Making 02/22/19 14:47 83y hx of htn, hl, presents with unwitnessed fall ith complaints ofhead pain, neck pain, hip pain. Patient is unable to recall circumstances of fall unclear if there was any syncope. History provided by chika on exam the patient with mild tenderness in the cervical spine and hips, we'll obtain x-rays nd CTs to evaluate trauma Will obtain blood work, urine to screen for anemia, metabolic derangements, occult infection as cause of her 02/22/19 16:58 patient's labs were reviewed the BUNs significantly elevated at 50, suspect possible dehydration we'll place a line and hydrate the patient awaiting the rest of her imaging studies if neg, anticipate dc with outpatient fu Heart Score/ECG Review - ECG Impressions Comment:: 02/22/19 16:57 Twelve-lead EKG was performed and reviewed by me. There is normal sinus rhythm with a normal rate. rate of 82 The axis is normal. The intervals are normal. There is normal R wave progression There are no ST or T wave abnormalities. Impression: Normal twelve-lead EKG
--- NOTE | 2019-02-22 19:41 | EKG ---
Test Reason : Blood Pressure : / mmHG Vent. Rate : 082 BPM Atrial Rate : 082 BPM P-R Int : 134 ms QRS Dur : 076 ms QT Int : 384 ms P-R-T Axes : 089 017 067 degrees QTc Int : 448 ms NORMAL SINUS RHYTHM NORMAL ECG WHEN COMPARED WITH ECG OF 19-JUN-2018 02:37, NO SIGNIFICANT CHANGE WAS FOUND Confirmed by EVELIO UP MD ([id number]) on 02/22/2019 7:40:50 PM Referred By: Confirmed By:EVELIO UP MD
--- NOTE | 2019-02-22 21:26 | PDOC ---
*Physical Exam - Vital Signs Last Vital Signs Temp Pulse Resp BP Pulse Ox 97.3 F L 89 20 145/78 96 02/22/19 14:23 02/22/19 14:23 02/22/19 14:23 02/22/19 14:23 02/22/19 14:23 ED Treatment Course - LABORATORY CBC & Chemistry Diagram: 02/22/19 15:38 02/22/19 15:38 - ADDITIONAL ORDERS Additional order review: Laboratory Results 02/22/19 15:38 Sodium 144 Potassium 3.9 Chloride 108 H Carbon Dioxide 28 Anion Gap 8 BUN 51.4 H Creatinine 1.1 Est GFR (CKD-EPI)AfAm 53.02 Est GFR (CKD-EPI)NonAf 45.74 Random Glucose 101 Calcium 8.5 Total Bilirubin 0.6 AST 38 H ALT 38 Alkaline Phosphatase 70 Creatine Kinase 117 Troponin I < 0.02 Total Protein 6.1 L Albumin 3.2 L 02/22/19 15:38 RBC 4.37 MCV 86.9 MCHC 32.7 RDW 14.2 MPV 8.2 Neutrophils % 69.9 Lymphocytes % 19.9 Monocytes % 8.6 Eosinophils % 1.2 Basophils % 0.4 - Medications Given in the ED: ED Medications Discontinued Medications Generic Name Dose Route Start Last Admin Trade Name Freq PRN Reason Stop Dose Admin Sodium Chloride 1,000 mls @ 1,000 mls/hr 02/22/19 16:58 02/22/19 17:20 Normal Saline - IV 02/22/19 17:57 1,000 mls/hr .Q1H ONE Administration Medical Decision Making - Medical Decision Making 02/22/19 21:20 pt refused straight cath urine and the order was cancelled ct scan of head : no acute intracranial pathology, no skull fracture ct scan c spine: no acute fracture,spinal canal and neural foramina are patent at all levels without evidence of spinal cord compression or nerve root compromise -there is 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 She can march in place and is weight bearing without pain -her grandson is here and is awaiting her transportation home imp fall/chronic unsteady gait ,walker needed for ambulation 02/22/19 21:31 02/22/19 22:20 *DC/Admit/Observation/Transfer Diagnosis at time of Disposition: Accident due to mechanical fall without injury - Discharge Dispostion Disposition: HOME Condition at time of disposition: Stable - Referrals Referrals: Bassem Mariano MD [Primary Care Provider] - - Patient Instructions Printed Discharge Instructions: How to Prevent Falls - Post Discharge Activity
[2019-02-22 21:53] VITALS: BP 159/66; PULSE 88; TEMP 98
== END 2019-02-22 22:45 | disposition home or self-care (01) ==
LOC: JER 14:17
PROC: 3E0337Z Introduction of Electrolytic and Water Balance Substance into Peripheral Vein, Percutaneous Approach (ICD-10-PCS; principal; 2019-02-22)
DX: R51 Headache (principal); M54.2 Cervicalgia; M54.6 Pain in thoracic spine; M25.551 Pain in right hip; M25.552 Pain in left hip; N39.498 Other specified urinary incontinence; W18.39XA Other fall on same level, initial encounter; Y93.89 Activity, other specified; Y92.038 Other place in apartment as the place of occurrence of the external cause; Y99.8 Other external cause status
CPT/HCPCS: 36415; 70450-TC; 71045-TC-FY; 72070-TC-FY; 72100-TC-FY; 72125-TC; 73502-TC-RT-FY; 73523-TC-FY; 80053; 82550; 84484; 85025; 93005; 93010; 96360; 99282-25; J7030

== ENCOUNTER 2019-03-08 15:37 | Inpatient (IN) | payer OTHER ==
--- NOTE | 2019-03-08 17:18 | PDOC ---
History of Present Illness - General Chief Complaint: Diarrhea Stated Complaint: DEHYDRATION Time Seen by Provider: 03/08/19 16:09 - History of Present Illness Initial Comments: 03/08/19 17:47 83 y/o F hx of HTN, HLD and previous femur fracture, presenting to the ED with 1 day of diarrhea. The pt. was at home when she called EMS through [facility] [employer], complaining of abdominal pain and diarrhea. As of the time of this HPI, she denied any such pain. She had some rice earlier to day and some cookies before her episodes of diarrhea. She has had watery non-bloody stools. she denies any fever, dysuria, hematuria, nausea or vomiting. Hx was obtained from patient's son and with the aid of translation. 03/08/19 23:41 Past History - Past Medical History Allergies/Adverse Reactions: Allergies Allergy/AdvReac Type Severity Reaction Status Date / Time No Known Allergies Allergy Verified 03/08/19 15:38 Home Medications: Ambulatory Orders Aspirin [ASA -] 81 mg PO ASDIR 10/09/14 Escitalopram Oxalate [Lexapro -] 10 mg PO DAILY 10/09/14 Olmesartan Medoxomil [Benicar -] 20 mg PO DAILY 10/09/14 Omeprazole [Prilosec (RX)] 20 mg PO DAILY 10/09/14 Rosuvastatin Calcium [Crestor] 5 mg PO HS 10/09/14 Solifenacin Succinate [Vesicare] 5 mg PO DAILY 10/09/14 COPD: No CHF: No HTN: Yes Hypercholesterolemia: Yes Psychiatric Problems: Yes (Depression) - Surgical History Abdominal Surgery: Yes (appendectomy) Appendectomy: Yes - Immunization History Immunization Up to Date: Yes - Suicide/Smoking/Psychosocial Hx Smoking History: Never smoked Have you smoked in the past 12 months: No Hx Alcohol Use: No Drug/Substance Use Hx: No Substance Use Type: None Hx Substance Use Treatment: No Review of Systems - Review of Systems Is the patient limited Malian proficient: Yes All Other Systems: Reviewed and Negative *Physical Exam - Vital Signs Last Vital Signs Temp Pulse Resp BP Pulse Ox 98 F 81 18 142/73 99 03/08/19 15:49 03/08/19 15:49 03/08/19 15:49 03/08/19 15:49 03/08/19 15:49 - Physical Exam General Appearance: Yes: Mild Distress, Thin HEENT: negative: Scleral Icterus (R), Scleral Icterus (L) Neck: positive: Supple Respiratory/Chest: positive: Lungs Clear, Normal Breath Sounds. negative: Respiratory Distress, Accessory Muscle Use, Labored Respiration, Rapid RR Cardiovascular: positive: Regular Rhythm, Regular Rate, S1, S2. negative: Edema , JVD, Murmur Vascular Pulses: Dorsalis-Pedis (R): 2+, Doralis-Pedis (L): 2+ Gastrointestinal/Abdominal: positive: Normal Bowel Sounds, Flat, Soft. negative : Pulsatile Mass, Guarding, Rebound, Tenderness Rectal Exam: positive: normal exam, normal rectal tone. negative: hemorrhoids Musculoskeletal: positive: CVA Tenderness, CVA Tenderness (R) Extremity: positive: Normal Inspection, Normal Range of Motion Integumentary: positive: Normal Color, Dry, Warm. negative: Cyanotic Neurologic: positive: Fully Oriented, Alert ED Treatment Course - LABORATORY CBC & Chemistry Diagram: 03/08/19 18:05 03/08/19 18:05 Medical Decision Making - Medical Decision Making 03/08/19 18:44 83y/o F hx of htn, hld, femur fracture, presents to the ED via EMS due to diarrhea. Labs/Imaging/Meds Stool occult negative white count not elevated EKG: normal sinus rhythm -Pt. given 1000cc of fluid at 125ml/hr for possible dehydration. 03/08/19 22:39 Pt sent for abdomen and pelvis ct with oral contrast. BUN was high, IV contrast not advised -Straight cath inserted to obtain urine for U/A and culture. 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 Pt will be admitted to Dr. Fatuma Tillman's service 03/09/19 00:[address] Haynes *DC/Admit/Observation/Transfer Diagnosis at time of Disposition: Dehydration Diarrhea Qualifiers: Diarrhea type: unspecified type Qualified Code(s): R19.7 - Diarrhea, unspecified - Discharge Dispostion Condition at time of disposition: Guarded Decision to Admit order: Yes - Referrals - Patient Instructions - Post Discharge Activity
[2019-03-08] MEDS ORDERED: SODIUM CHLORIDE 1,000 ML IV SCH (17:45)
[2019-03-08 18:21] LABS: BASO % 0.5 % (0-2.0); HEMATOCRIT 38.5 % (32.4-45.2); HEMOGLOBIN 12.8 GM/dL (10.7-15.3); LYMPH % 23.8 % (8-40); MCH 29.1 pg (25.7-33.7); MCHC 33.3 g/dl (32.0-36.0); MEAN CELL VOLUME 87.3 fl (80-96); MEAN PLT VOLUME 8.8 fl (7.5-11.1); NEUT % 67.7 % (42.8-82.8); PLATELET COUNT 220 K/MM3 (134-434); RBC 4.41 M/mm3 (3.60-5.2); RDW 13.7 % (11.6-15.6); WHITE BLOOD COUNT 7.9 K/mm3 (4.0-10.0)
[2019-03-08 18:53] LABS: ALBUMIN 3.5 g/dl (3.4-5.0); BILIRUBIN,TOTAL 0.4 mg/dL (0.2-1); BLOOD UREA NITROGEN 35.5 mg/dL (7-18); CALCIUM 9.3 mg/dL (8.5-10.1); CREATININE 0.9 mg/dL (0.55-1.3); POTASSIUM 4.6 mmol/L (3.5-5.1); TOT PROT 6.7 g/dl (6.4-8.2)
--- NOTE | 2019-03-08 21:23 | PDOC ---
Documentation entered by Moisés Stephenson SCRIBE, acting as scribe for Linda Vang MD. Linda Vang MD: This documentation has been prepared by the Sachin corona Daniel, SCRIBE, under my direction and personally reviewed by me in its entirety. I confirm that the documentation accurately reflects all work, treatment, procedures, and medical decision making performed by me. Attending Attestation - Resident Resident Name: Kyler Gorman - ED Attending Attestation I have performed the following: I have examined & evaluated the patient, The case was reviewed & discussed with the resident, I agree w/resident's findings & plan, Exceptions are as noted - HPI HPI: 03/08/19 17:38 The patient is an 83 year old female with a past medical history of HTN, HLD, and recurrent epistaxis here today for evaluation of diarrhea. History provided by patient and patients son. Patient has had multiple episodes of diarrhea that started and resolved today. Patient describes the diarrhea as watery and non bloody. She also notes 5 hours of epigastric pain. Patient denies headache, lightheadedness. Denies fever, chills. Denies chest pain, shortness of breath. Denies nausea, vomiting. Denies urinary symptoms. Allergies: NKA [employer] phone was used, [id number]. - Physicial Exam PE: 03/08/19 17:52 GENERAL: +cachectic, frail appearing. +feces under fingernails. +patient is soiled. No apparent distress. HEENT: +dry mucous membranes. Normocephalic, atraumatic. PERRL, EOM intact. CARDIOVASCULAR: Normal S1, S2. Regular rate and rhythm. PULMONARY: Clear to auscultation bilaterally. ABDOMEN: Soft, non-distended, flat, non-tender. EXTREMITIES: Normal ROM in all four extremities. No gross deformities. SKIN: Warm, dry. No rash NEUROLOGICAL: No focal neurological deficits. - Medical Decision Making 03/08/19 19:14 Reviewed her labs and her CBC is unremarkable, there is no significant anemia, there is no leukocytosis. chemistries reveals elevated bun of 35 but normal creatinine will obtain ct scan with po contrast only 03/09/19 00:07 CT scan of abdomen: FINDINGS: Lack of intravenous contrast limits this exam. Mild basilar atelectasis. Moderate gallbladder distention with dependent density most likely due to sludge or cholelithiasis. Noncontrast evaluation pancreas spleen adrenal glands and kidneys appear unremarkable. No nephrolithiasis or hydronephrosis. 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 Stomach small bowel appear unremarkable. Appendix is not identified. Diverticulosis of the colon without diverticulitis. Status post hysterectomy. Bladder appears unremarkable. Bridging lower thoracic osteophytes. Moderate degenerative disc disease. Moderate degenerative joint disease of the facets. Severe neural foraminal narrowing in the lower lumbar levels. Right femoral neck dynamic hip screw. Proximal right femoral intramedullary radha. Mild degenerative joint disease of the hips. Subcutaneous edema in the medial gluteal soft tissues suspicious for decubitus soft tissue cellulitis incompletely included within the [id number]. Mild atrophy of the body wall muscles. IMPRESSION: Moderate gallbladder distention with dependent density most likely due to sludge or cholelithiasis. 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 Diverticulosis of the colon without diverticulitis. Severe neural foraminal narrowing in the lower lumbar levels. Subcutaneous edema in the medial gluteal soft tissues suspicious for decubitus soft tissue cellulitis incompletely included within the [id number]. 03/09/19 00:47 pt will be admitted for diarrhea and dehydration, elevated lactic will be repeated
[2019-03-08 22:48] LABS: EPI CELLS 2.1 /HPF (0-5/HPF); HYALINE CASTS 3 /lpf (0-8); URINE APPEARANCE CLEAR; URINE BACTERIA 0.3 /hpf (NEGATIVE); URINE BILIRUBIN NEGATIVE (NEGATIVE); URINE COLOR YELLOW; URINE GLUCOSE (UA) NEGATIVE (NEGATIVE); URINE KETONE NEGATIVE (NEGATIVE); URINE LEUK ESTERASE NEGATIVE (NEGATIVE); URINE NITRITE NEGATIVE (NEGATIVE); URINE PROTEIN NEGATIVE (NEGATIVE); URINE RBC 5 /hpf (0-4); URINE UROBILINOGEN 0.2 mg/dL (0.2-1.0); URINE WBC 0 /hpf (0-5)
[2019-03-08] MEDS ORDERED: ACETAMINOPHEN 325 MG TABLET (FP) ONE (23:55)
--- NOTE | 2019-03-09 00:34 | PDOC ---
*Physical Exam - Vital Signs Last Vital Signs Temp Pulse Resp BP Pulse Ox 98 F 81 18 142/73 99 03/08/19 15:49 03/08/19 15:49 03/08/19 15:49 03/08/19 15:49 03/08/19 15:49 ED Treatment Course - LABORATORY CBC & Chemistry Diagram: 03/08/19 18:05 03/08/19 18:05 - ADDITIONAL ORDERS Additional order review: Laboratory Results 03/08/19 03/08/19 03/08/19 22:30 19:28 18:10 Sodium Potassium Chloride Carbon Dioxide Anion Gap BUN Creatinine Est GFR (CKD-EPI)AfAm Est GFR (CKD-EPI)NonAf Random Glucose Lactic Acid 2.1 H Calcium Total Bilirubin AST ALT Alkaline Phosphatase Creatine Kinase Troponin I Total Protein Albumin Urine Color Yellow Urine Appearance Clear Urine pH 7.0 Ur Specific [place] 1.010 Urine Protein Negative Urine Glucose (UA) Negative Urine Ketones Negative Urine Blood Trace Urine Nitrite Negative Urine Bilirubin Negative Urine Urobilinogen 0.2 Ur Leukocyte Esterase Negative Urine WBC (Auto) 0 Urine RBC (Auto) 5 Urine Casts (Auto) 3 U Epithel Cells (Auto) 2.1 Urine Bacteria (Auto) 0.3 Stool Occult Blood Negative 03/08/19 03/08/19 18:05 18:05 Sodium 144 Potassium 4.6 Chloride 108 H Carbon Dioxide 30 Anion Gap 6 L BUN 35.5 H Creatinine 0.9 Est GFR (CKD-EPI)AfAm 67.57 Est GFR (CKD-EPI)NonAf 58.30 Random Glucose 131 H Lactic Acid Calcium 9.3 Total Bilirubin 0.4 AST 29 ALT 38 Alkaline Phosphatase 127 H Creatine Kinase 37 Troponin I < 0.02 Total Protein 6.7 Albumin 3.5 Urine Color Urine Appearance Urine pH Ur Specific [place] Urine Protein Urine Glucose (UA) Urine Ketones Urine Blood Urine Nitrite Urine Bilirubin Urine Urobilinogen Ur Leukocyte Esterase Urine WBC (Auto) Urine RBC (Auto) Urine Casts (Auto) U Epithel Cells (Auto) Urine Bacteria (Auto) Stool Occult Blood 03/08/19 18:05 RBC 4.41 MCV 87.3 MCHC 33.3 RDW 13.7 MPV 8.8 Neutrophils % 67.7 Lymphocytes % 23.8 Monocytes % 7.0 Eosinophils % 1.0 Basophils % 0.5 Medical Decision Making - Medical Decision Making 03/09/19 00:32 Patient received on sign out from Dr. Gorman. Admitted to Dr. Lyn for dehydration and diarrhea. Lactic elevated at 2.1, and elevated BUN. Repeat lactic acid ordered. Plan to admit overnight for diarrhea/dehydration. CT abd/pelv shows moderate gallbladder distension with dependent density most likely due to sludge or cholelithiasis. Subcutaneous edema in the medial gluteal soft tissues suspicious for soft tissue cellulitis. PO contrast only as BUN elevated. 03/09/19 01:[address] Tillman who will admit the patient for dehydration, diarrhea, and elevated lactic acid. *DC/Admit/Observation/Transfer Diagnosis at time of Disposition: Dehydration Diarrhea Qualifiers: Diarrhea type: unspecified type Qualified Code(s): R19.7 - Diarrhea, unspecified - Discharge Dispostion Condition at time of disposition: Guarded - Referrals - Patient Instructions - Post Discharge Activity
[2019-03-09 05:45] VITALS: BMI 18.5
[2019-03-09 09:05] LABS: ALBUMIN 3.4 g/dl (3.4-5.0); BILIRUBIN,TOTAL 0.5 mg/dL (0.2-1); BLOOD UREA NITROGEN 18.8 mg/dL (7-18); CALCIUM 9.3 mg/dL (8.5-10.1); CREATININE 0.7 mg/dL (0.55-1.3); POTASSIUM 3.6 mmol/L (3.5-5.1); TOT PROT 6.2 g/dl (6.4-8.2)
[2019-03-09 10:02] LABS: BASO % 0.4 % (0-2.0); EOS % 1.5 % (0-4.5); HEMATOCRIT 39.4 % (32.4-45.2); HEMOGLOBIN 13.2 GM/dL (10.7-15.3); LYMPH % 29.7 % (8-40); MCH 29.1 pg (25.7-33.7); MCHC 33.4 g/dl (32.0-36.0); MEAN CELL VOLUME 86.9 fl (80-96); MEAN PLT VOLUME 9.3 fl (7.5-11.1); MONO % 6.4 % (3.8-10.2); PLATELET COUNT 230 K/MM3 (134-434); RBC 4.54 M/mm3 (3.60-5.2); RDW 13.7 % (11.6-15.6); WHITE BLOOD COUNT 7.9 K/mm3 (4.0-10.0)
--- NOTE | 2019-03-09 10:13 | EKG ---
Test Reason : Blood Pressure : / mmHG Vent. Rate : 070 BPM Atrial Rate : 070 BPM P-R Int : 124 ms QRS Dur : 080 ms QT Int : 408 ms P-R-T Axes : 025 026 075 degrees QTc Int : 440 ms NORMAL SINUS RHYTHM NORMAL ECG WHEN COMPARED WITH ECG OF 22-FEB-2019 15:21, NO SIGNIFICANT CHANGE WAS FOUND Confirmed by ALEXIS RICO MD ([id number]) on 03/09/2019 10:12:51 AM Referred By: Confirmed By:ALEXIS RICO MD
[2019-03-09] MEDS: ASPIRIN 81 MG CHEWABLE TABLETS PO SCH (10:54)
[2019-03-09] MEDS: DEXTROSE 5%-0.45% SALINE 1,000 ML IV SCH (10:54)
[2019-03-09] MEDS: HEPARIN NA (PORCINE) 5,000 UNITS/ML 1ML VIAL SQ SCH ×2 (10:56→21:25)
[2019-03-09] MEDS: VALSARTAN 160 MG TABLET (UD) PO SCH (10:56)
[2019-03-09] MEDS: ESCITALOPRAM OXALATE 10 MG TABLET (FP) PO SCH (10:56)
[2019-03-09] MEDS ORDERED: ROSUVASTATIN CA 5 MG TABLET (FP) PO SCH (22:00)
--- NOTE | 2019-03-09 22:06 | HP ---
Admitting History and Physical - Admission History of Present Illness: 83 y/o F hx of HTN, HLD, femur fracture. Pt presented to the ED with 1 day of diarrhea. The pt. was at home when she called EMS through [facility], complaining of abdominal pain and diarrhea. She had some rice earlier in the day and some cookies before her episodes of diarrhea. She has had watery non- bloody stools. Pt has not had any further diarrhea or abdominal pain. She denies any fever, dysuria, hematuria, nausea or vomiting. Hx was obtained from patient's son and with the aid of translation. In the ER pt found to have elevated BUN and ct scan abd did not reveal any acute pathology. - Past Medical History Cardiovascular: Yes: HTN, Hyperlipdemia ...: No - Past Surgical History Past Surgical History: Yes: None - Smoking History Smoking history: Never smoked Have you smoked in the past 12 months: No - Alcohol/Substance Use Hx Alcohol Use: No Home Medications - Allergies Allergies/Adverse Reactions: Allergies Allergy/AdvReac Type Severity Reaction Status Date / Time No Known Allergies Allergy Verified 03/08/19 15:38 - Home Medications Home Medications: Ambulatory Orders Aspirin [ASA -] 81 mg PO ASDIR 10/09/14 Escitalopram Oxalate [Lexapro -] 10 mg PO DAILY 10/09/14 Olmesartan Medoxomil [Benicar -] 20 mg PO DAILY 10/09/14 Omeprazole [Prilosec (RX)] 20 mg PO DAILY 10/09/14 Rosuvastatin Calcium [Crestor] 5 mg PO HS 10/09/14 Solifenacin Succinate [Vesicare] 5 mg PO DAILY 10/09/14 Family Disease History - Family Disease History Family History: Unremarkable Review of Systems - Review of Systems Constitutional: reports: Loss of Appetite Eyes: reports: No Symptoms HENT: reports: No Symptoms Neck: reports: No Symptoms Cardiovascular: reports: No Symptoms Respiratory: reports: No Symptoms Gastrointestinal: reports: Abdominal Pain, Diarrhea Genitourinary: reports: No Symptoms Physical Examination Vital Signs: Vital Signs Temperature 97.5 F L 03/09/19 21:31 Pulse Rate 70 03/09/19 21:31 Respiratory Rate 16 03/09/19 21:31 Blood Pressure 142/67 03/09/19 21:31 O2 Sat by Pulse Oximetry (%) 100 03/09/19 09:00 Constitutional: Yes: No Distress Eyes: Yes: WNL HENT: Yes: WNL Neck: Yes: WNL, Supple Cardiovascular: Yes: WNL, Regular Rate and Rhythm Respiratory: Yes: WNL, Regular, CTA Bilaterally Gastrointestinal: Yes: WNL, Normal Bowel Sounds, Soft, Abdomen, Obese Edema: No Neurological: Yes: WNL, Alert, Oriented Labs: CBC, BMP 03/09/19 06:40 03/09/19 06:40 Problem List - Problems (1) Abdominal pain Assessment/Plan: Cont to monitor Advance diet as tolerated Cont IVF Ct scan abd did nt show any acute pahtology Code(s): R10.9 - UNSPECIFIED ABDOMINAL PAIN (2) Dehydration Assessment/Plan: Cont IVF Monitor labs Code(s): E86.0 - DEHYDRATION (3) Diarrhea Assessment/Plan: Resolved at this point Code(s): R19.7 - DIARRHEA, UNSPECIFIED Qualifiers: Diarrhea type: unspecified type Qualified Code(s): R19.7 - Diarrhea, unspecified (4) HTN (hypertension) Assessment/Plan: Cont asa/diovan BP stable Code(s): I10 - ESSENTIAL (PRIMARY) HYPERTENSION (5) HLD (hyperlipidemia) Assessment/Plan: Cont crestor Code(s): E78.5 - HYPERLIPIDEMIA, UNSPECIFIED (6) Depression Assessment/Plan: Cont lexapro Code(s): F32.9 - MAJOR DEPRESSIVE DISORDER, SINGLE EPISODE, UNSPECIFIED (7) Lactic acid acidosis Assessment/Plan: Resolved after giving bolus of fluids Code(s): E87.2 - ACIDOSIS
[2019-03-10] MEDS: ASPIRIN 81 MG CHEWABLE TABLETS PO SCH (05:11)
[2019-03-10 07:56] LABS: BASO % 0.5 % (0-2.0); EOS % 1.2 % (0-4.5); HEMATOCRIT 37.7 % (32.4-45.2); HEMOGLOBIN 12.6 GM/dL (10.7-15.3); LYMPH % 35.9 % (8-40); MCH 28.8 pg (25.7-33.7); MCHC 33.5 g/dl (32.0-36.0); MONO % 6.4 % (3.8-10.2); PLATELET COUNT 245 K/MM3 (134-434); RBC 4.39 M/mm3 (3.60-5.2); RDW 13.8 % (11.6-15.6); WHITE BLOOD COUNT 7.1 K/mm3 (4.0-10.0)
[2019-03-10 09:57] LABS: ALBUMIN 3.1 g/dl (3.4-5.0); BILIRUBIN,TOTAL 0.6 mg/dL (0.2-1); BLOOD UREA NITROGEN 20.2 mg/dL (7-18); CALCIUM 9.1 mg/dL (8.5-10.1); CREATININE 0.8 mg/dL (0.55-1.3); POTASSIUM 4.1 mmol/L (3.5-5.1)
[2019-03-10] MEDS: ESCITALOPRAM OXALATE 10 MG TABLET (FP) PO SCH (10:26)
[2019-03-10] MEDS: HEPARIN NA (PORCINE) 5,000 UNITS/ML 1ML VIAL SQ SCH (10:26)
[2019-03-10] MEDS: VALSARTAN 160 MG TABLET (UD) PO SCH (10:26)
[2019-03-10] MEDS: DEXTROSE 5%-0.45% SALINE 1,000 ML IV SCH (10:33)
[2019-03-10 15:09] VITALS: BP 129/61; PULSE 89; TEMP 98
== END 2019-03-10 17:21 | disposition home health service (06) | DRG 641 ==
LOC: JER 15:37 → JERBED 03-09 00:10 → J7W 03-09 05:36
PROVIDERS: ADMIT Internal Medicine; ATTEND Internal Medicine
DX: E86.0 Dehydration (principal); R19.7 Diarrhea, unspecified; E87.2 Acidosis; R10.9 Unspecified abdominal pain; I10 Essential (primary) hypertension; E78.5 Hyperlipidemia, unspecified; F32.9 Major depressive disorder, single episode, unspecified
CPT/HCPCS: 36415; 74176-TC; 76700-TC; 80053; 81003; 82272; 82550; 83605; 84484; 85025; 87086; 93005; 93010; 97116-GP; 97162-GP; 99285-25; J1644; J7030

== ENCOUNTER 2019-03-18 13:53 | Inpatient (IN) | payer OTHER ==
--- NOTE | 2019-03-18 14:11 | PDOC ---
History of Present Illness - General Chief Complaint: Altered Mental Status Stated Complaint: CHANGE IN RESPONSIVENESS History Source: Patient Exam Limitations: No Limitations - History of Present Illness Initial Comments: The patient is an 83 year old female with a past medical history of HTN, HLD, and recurrent epistaxis here today for evaluation of altered mental status. Per the daughter and grandson at bedside, their grandmother (the patient) is normally able to state her name and recognize her surroundings and familiar people. Was last seen at this baseline at 8:30 am. When the nursing tech came to the house, she was more confused, mostly silent, and scratching herself incessantly. The patient is unable to provide history and does not respond to questions, but is alert. Per the family, they state she was complaining of suprapubic pain yesterday. For 1 week, she has had back pain (unable to specify where). She is known to have recurrent falls (denies she is on AC). Unable to assess ROS. Allergies: NKDA Shx: None tPA Exclusion Checklist 0-3hr - Time Elapsed Date last known well: 03/18/19 Time last known well: 08:30 Elaspsed time: 1 Day(s) and 5 Hour(s) and 2 Minutes - Thrombolytic Therapy Candidate Is the patient eligible for Thrombolytic Therapy?: No - Exclusion Criteria 0-3hr SBP greater than 185 or DBP greater than 110mmHg despite tx: No Recent IC/spinal surgery,head trauma or stroke w/in last 3mo: No Hx of previous IC hemorrhage, IC neoplasm, AVM or aneurysm: No Active internal bleeding: No Blding diathesis(low plt ct, inc PTT,INR>1.7 or use of NOAC): No Symptoms suggest subarachnoid hemorrhage: No CT demonstrates multilobar infarct(>1/3 cerebral hemiphere): No Arterial puncture at noncompressible site in previous 7 days: No Blood glucose concentration less than 50mg/dL (2.7mmol/L): No - Relative Exclusion Criteria 0-3h : No Patient/family refused: No Rapid improvement: No Stroke severity too mild: No Recent acute WI (w/in previous 3 months): No Seizure at onset with postictal residual neuro impairments: No Major surgery or serious trauma w/in previous 14 days: No Recent GI or hemorrhage (w/in previous 21 days): No - Ineligibility reason(s) Reasons No tPA given: Outside of window - delayed arrival Past History - Past Medical History Allergies/Adverse Reactions: Allergies Allergy/AdvReac Type Severity Reaction Status Date / Time No Known Allergies Allergy Verified 03/18/19 18:49 Home Medications: Ambulatory Orders Aspirin [ASA -] 81 mg PO ASDIR 10/09/14 Escitalopram Oxalate [Lexapro -] 10 mg PO DAILY 10/09/14 Olmesartan Medoxomil [Benicar -] 20 mg PO DAILY 10/09/14 Omeprazole [Prilosec (RX)] 20 mg PO DAILY 10/09/14 Rosuvastatin Calcium [Crestor] 5 mg PO HS 10/09/14 Solifenacin Succinate [Vesicare] 5 mg PO DAILY 10/09/14 COPD: No CHF: No HTN: Yes Hypercholesterolemia: Yes Psychiatric Problems: Yes (Depression) - Surgical History Abdominal Surgery: Yes (appendectomy) Appendectomy: Yes - Immunization History Immunization Up to Date: Yes - Suicide/Smoking/Psychosocial Hx Smoking History: Unknown if ever smoked Have you smoked in the past 12 months: No Information on smoking cessation initiated: No Hx Alcohol Use: No Drug/Substance Use Hx: No Substance Use Type: None Hx Substance Use Treatment: No Review of Systems - Review of Systems Able to Perform ROS?: No (AMS) *Physical Exam - Vital Signs Last Vital Signs Temp Pulse Resp BP Pulse Ox 99.2 F 99 H 18 140/60 99 03/18/19 14:04 03/18/19 14:04 03/18/19 14:04 03/18/19 14:04 03/18/19 14:04 - Physical Exam Comments: 03/18/19 15:22 erythema in the occpital region. no tenderness throughout spine. decreased breath sounds bilaterally.. regular rhythem no tenderness on back. a and o x 0. ROM intact. laceration scratch on left medial anterior thigh General Appearance: Yes: Nourished, Appropriately Dressed, Other (rigid appearing with fixed facies). No: Apparent Distress, Intoxicated HEENT: positive: EOMI, MIKAYLA, TMs Normal, Pharynx Normal. negative: Normal Voice , Pale Conjunctivae, Scleral Icterus (R), Scleral Icterus (L), Muffled/Hoarse voice, Pharyngeal Erythema, Tonsillar Exudate, Tonsillar Erythema, Nasal Congestion, Rhinorrhea, Sinus Tenderness, Excessive drooling Neck: positive: Trachea midline, Supple. negative: Tender, Lymphadenopathy (R) , Lymphadenopathy (L), Tender lateral, Tender midline Respiratory/Chest: positive: Lungs Clear. negative: Chest Tender, Normal Breath Sounds (decreased breathsounds bilaterally. ), Respiratory Distress, Accessory Muscle Use Cardiovascular: positive: Regular Rhythm, Regular Rate, S1, S2. negative: Systolic Murmur Gastrointestinal/Abdominal: positive: Normal Bowel Sounds, Flat, Soft. negative : Tender, Distended, Guarding, Rebound Lymphatic: negative: Adenopathy Musculoskeletal: positive: Normal Inspection. negative: CVA Tenderness, Vertebral Tenderness Extremity: positive: Normal Capillary Refill, Normal Inspection. negative: Normal Range of Motion (rigidity in all 4 extremities), Tender, Swelling, Calf Tenderness Integumentary: positive: Normal Color, Dry, Warm Neurologic: positive: Alert. negative: pool player II-XII NML intact (unable to assess) , Fully Oriented, Normal Mood/Affect, Motor Strength 12/14 ED Treatment Course - LABORATORY CBC & Chemistry Diagram: 03/19/19 05:15 03/19/19 05:15 Medical Decision Making - Medical Decision Making 03/18/19 14:46 The patient is an 83 year old female with a past medical history of HTN, HLD, and recurrent epistaxis here today for evaluation of altered mental status. Initial vitals: Initial Vital Signs Temp Pulse Resp BP Pulse Ox 99.2 F 99 H 18 140/60 99 03/18/19 14:04 03/18/19 14:04 03/18/19 14:04 03/18/19 14:04 03/18/19 14:04 AMS ddx includes infectious etiology vs neurological vs metabolic disturbance Laboratory Tests 03/18/19 03/18/19 03/18/19 14:50 14:50 14:50 WBC 12.6 H RBC 4.26 Hgb 12.2 Hct 36.5 MCV 85.8 MCH 28.7 MCHC 33.4 RDW 13.4 Plt Count 311 D MPV 8.5 Absolute Neuts (auto) 9.4 H Neutrophils % 74.6 D Lymphocytes % 13.8 D Monocytes % 10.9 H Eosinophils % 0.2 D Basophils % 0.5 Nucleated RBC % 0 PT with INR INR Sodium 139 Potassium 4.5 Chloride 101 Carbon Dioxide 31 Anion Gap 7 L BUN 28.2 H Creatinine 0.7 Est GFR (CKD-EPI)AfAm 91.57 Est GFR (CKD-EPI)NonAf 79.00 Random Glucose 102 Calcium 8.9 Magnesium 2.4 Total Bilirubin 0.8 AST 117 H ALT 54 Alkaline Phosphatase 125 H Creatine Kinase > 1000 H Creatine Kinase Index 0.0 CK-MB (CK-2) 6.5 H Troponin I < 0.02 Total Protein 5.9 L Albumin 2.8 L Urine Color Urine Appearance Urine pH Ur Specific [place] Urine Protein Urine Glucose (UA) Urine Ketones Urine Blood Urine Nitrite Urine Bilirubin Urine Urobilinogen Ur Leukocyte Esterase Urine WBC (Auto) Urine RBC (Auto) Urine Casts (Auto) U Epithel Cells (Auto) Urine Bacteria (Auto) Blood Type Antibody Screen 03/18/19 03/18/19 03/18/19 14:50 14:50 19:50 WBC RBC Hgb Hct MCV MCH MCHC RDW Plt Count MPV Absolute Neuts (auto) Neutrophils % Lymphocytes % Monocytes % Eosinophils % Basophils % Nucleated RBC % PT with INR 14.20 H INR 1.20 H Sodium Potassium Chloride Carbon Dioxide Anion Gap BUN Creatinine Est GFR (CKD-EPI)AfAm Est GFR (CKD-EPI)NonAf Random Glucose Calcium Magnesium Total Bilirubin AST ALT Alkaline Phosphatase Creatine Kinase Creatine Kinase Index CK-MB (CK-2) Troponin I Total Protein Albumin Urine Color Yellow Urine Appearance Cloudy Urine pH 8.0 Ur Specific [place] 1.009 L Urine Protein Negative Urine Glucose (UA) Negative Urine Ketones Negative Urine Blood 3+ H Urine Nitrite Negative Urine Bilirubin Negative Urine Urobilinogen 1.0 Ur Leukocyte Esterase 3+ H Urine WBC (Auto) 73 Urine RBC (Auto) 42 Urine Casts (Auto) 20 U Epithel Cells (Auto) 8.5 Urine Bacteria (Auto) 310.1 Blood Type Cancelled Antibody Screen Cancelled head CT negative for acute intracranial process. CXR negative for acute process. UA shows UTI. patient has a CK >1000 likely secondary to her parkinsons disease and rigidity without GRADY noted. started on 1 L of NS for hydration. patient to be admitted. Signed out patient to Dr. Granados. *DC/Admit/Observation/Transfer Diagnosis at time of Disposition: UTI (urinary tract infection) Qualifiers: Urinary tract infection type: site unspecified Hematuria presence: without hematuria Qualified Code(s): N39.0 - Urinary tract infection, site not specified Altered mental status Qualifiers: Altered mental status type: unspecified Qualified Code(s): R41.82 - Altered mental status, unspecified - Discharge Dispostion Condition at time of disposition: Guarded - Referrals - Patient Instructions - Post Discharge Activity
[2019-03-18 15:02] LABS: BASO % 0.5 % (0-2.0); EOS % 0.2 % (0-4.5); HEMATOCRIT 36.5 % (32.4-45.2); HEMOGLOBIN 12.2 GM/dL (10.7-15.3); LYMPH % 13.8 % (8-40); MCH 28.7 pg (25.7-33.7); MCHC 33.4 g/dl (32.0-36.0); MEAN CELL VOLUME 85.8 fl (80-96); MEAN PLT VOLUME 8.5 fl (7.5-11.1); MONO % 10.9 % (3.8-10.2); NEUT % 74.6 % (42.8-82.8); PLATELET COUNT 311 K/MM3 (134-434); RBC 4.26 M/mm3 (3.60-5.2); RDW 13.4 % (11.6-15.6); WHITE BLOOD COUNT 12.6 K/mm3 (4.0-10.0)
[2019-03-18 15:17] LABS: INR 1.2 (0.83-1.09); PROTHROMBIN TIME (PATIENT) 14.2 SEC (9.7-13.0)
[2019-03-18] MEDS ORDERED: SODIUM CHLORIDE 1,000 ML IV STA (16:20)
[2019-03-18 16:40] LABS: ALBUMIN 2.8 g/dl (3.4-5.0); BILIRUBIN,TOTAL 0.8 mg/dL (0.2-1); BLOOD UREA NITROGEN 28.2 mg/dL (7-18); CALCIUM 8.9 mg/dL (8.5-10.1); CREATININE 0.7 mg/dL (0.55-1.3); TOT PROT 5.9 g/dl (6.4-8.2)
[2019-03-18 16:41] LABS: MAGNESIUM 2.4 mg/dL (1.8-2.4); POTASSIUM 4.5 mmol/L (3.5-5.1)
--- NOTE | 2019-03-18 17:43 | PDOC ---
Documentation entered by Ysabel Palaofx SCRIBE, acting as scribe for Omid Pacheco MD. Omid Pacheco MD: This documentation has been prepared by the scribe, Ysabel Palafox SCRIBE, under my direction and personally reviewed by me in its entirety. I confirm that the documentation accurately reflects all work, treatment, procedures, and medical decision making performed by me. Attending Attestation - Resident Resident Name: Milton Gray - ED Attending Attestation I have performed the following: I have examined & evaluated the patient, The case was reviewed & discussed with the resident, I agree w/resident's findings & plan, Exceptions are as noted - HPI HPI: 03/18/19 15:20 The patient is an 83-year-old female, with a past medical history of HTN, HLD, and recurrent epistaxis, who presents to the ED with AMS. As per nursing informatics specialist, the patient appeared more confused and silent today and was noted to be scratching herself constantly. Patient was last seen normal at 8:30 AM. - Physicial Exam PE: 03/18/19 17:40 Patient is alert, nonverbal, does not follow commands Normocephalic and atraumatic PERRLA, EOMI mm-dry + nuchal rigidity cta rrr + Bilateral upper and lower extremity rigidity - Medical Decision Making 03/18/19 17:41 Patient is an 83-year-old female brought in by her family for change in mental status, low-grade fever and muscle rigidity. In the ER, patient is noted to be awake, does not follow commands, has extensive upper and lower extremity muscle rigidity without clonus. Blood and urine cultures will be obtained. CT of head shows no evidence of acute pathology, chronic microvascular ischemic disease is noted. Chest x-ray reveals no evidence of infiltrate or effusion. CPK is noted to be elevated. Differential diagnoses includes acute delirium versus Parkinsonian-like features versus serotonin syndrome. Will hold citalopram. Will hydrate. We'll consider benzos. Likely admission
--- NOTE | 2019-03-18 20:09 | PDOC ---
*Physical Exam - Vital Signs Last Vital Signs Temp Pulse Resp BP Pulse Ox 99.2 F 88 18 140/60 99 03/18/19 14:04 03/18/19 18:00 03/18/19 14:04 03/18/19 14:04 03/18/19 14:04 ED Treatment Course - LABORATORY CBC & Chemistry Diagram: 03/19/19 05:15 03/19/19 05:15 - ADDITIONAL ORDERS Additional order review: Laboratory Results 03/18/19 03/18/19 03/18/19 14:50 14:50 14:50 PT with INR 14.20 H INR 1.20 H Sodium 139 Potassium 4.5 Chloride 101 Carbon Dioxide 31 Anion Gap 7 L BUN 28.2 H Creatinine 0.7 Est GFR (CKD-EPI)AfAm 91.57 Est GFR (CKD-EPI)NonAf 79.00 Random Glucose 102 Calcium 8.9 Magnesium 2.4 Total Bilirubin 0.8 AST 117 H ALT 54 Alkaline Phosphatase 125 H Creatine Kinase Creatine Kinase Index CK-MB (CK-2) Troponin I Total Protein 5.9 L Albumin 2.8 L Blood Type Cancelled Antibody Screen Cancelled 03/18/19 14:50 PT with INR INR Sodium Potassium Chloride Carbon Dioxide Anion Gap BUN Creatinine Est GFR (CKD-EPI)AfAm Est GFR (CKD-EPI)NonAf Random Glucose Calcium Magnesium Total Bilirubin AST ALT Alkaline Phosphatase Creatine Kinase > 1000 H Creatine Kinase Index 0.0 CK-MB (CK-2) 6.5 H Troponin I < 0.02 Total Protein Albumin Blood Type Antibody Screen 03/18/19 14:50 RBC 4.26 MCV 85.8 MCHC 33.4 RDW 13.4 MPV 8.5 Neutrophils % 74.6 D Lymphocytes % 13.8 D Monocytes % 10.9 H Eosinophils % 0.2 D Basophils % 0.5 - Medications Given in the ED: ED Medications Discontinued Medications Generic Name Dose Route Start Last Admin Trade Name Freq PRN Reason Stop Dose Admin Sodium Chloride 1,000 mls @ 1,000 mls/hr 03/18/19 16:20 03/18/19 16:49 Normal Saline - IV 03/18/19 17:19 1,000 mls/hr ASDIR STA Administration Medical Decision Making - Medical Decision Making Patient signed out by Dr. Gray 83 year old female with a past medical history of HTN, HLD, and recurrent epistaxis here today for evaluation of altered mental status. VSS Pending UA Plan for admission EKG: rate 99, QTc 462, NSR 03/18/19 20:08 UA positive for infection with 3+ LE, and 73 WBC Will treat with antibiotics Plan for admission 03/18/19 20:[address] Tillman who accepted patient for telemetry admission under herself. I will ensure blood cultures and lactate get sent. 03/18/19 21:17 Updated patient's daughter, Shu, at the bedside who can be reached at [phone] Blood cultures and lactate drawn and sent 03/18/19 21:35 *DC/Admit/Observation/Transfer Diagnosis at time of Disposition: UTI (urinary tract infection) Qualifiers: Urinary tract infection type: site unspecified Hematuria presence: without hematuria Qualified Code(s): N39.0 - Urinary tract infection, site not specified Altered mental status Qualifiers: Altered mental status type: unspecified Qualified Code(s): R41.82 - Altered mental status, unspecified - Discharge Dispostion Condition at time of disposition: Guarded Decision to Admit order: Yes - Referrals - Patient Instructions - Post Discharge Activity
[2019-03-18 20:15] LABS: EPI CELLS 8.5 /HPF (0-5/HPF); HYALINE CASTS 20 /lpf (0-8); URINE APPEARANCE CLOUDY; URINE BILIRUBIN NEGATIVE (NEGATIVE); URINE COLOR YELLOW; URINE GLUCOSE (UA) NEGATIVE (NEGATIVE); URINE KETONE NEGATIVE (NEGATIVE); URINE LEUK ESTERASE 3+ (NEGATIVE); URINE NITRITE NEGATIVE (NEGATIVE); URINE PROTEIN NEGATIVE (NEGATIVE); URINE RBC 42 /hpf (0-4); URINE WBC 73 /hpf (0-5)
[2019-03-18] MEDS ORDERED: CEFTRIAXONE 1,000 MG in DEXTROSE 5%-WATER - 50 ML IVPB ONE (20:37)
[2019-03-18] MEDS ORDERED: CEFTRIAXONE 1 GM/50 ML BAG ONE (20:54)
[2019-03-18] MEDS ORDERED: ACETAMINOPHEN 325 MG TABLET (FP) PO PRN (22:27)
[2019-03-18 22:54] LABS: URINE BACTERIA 310.1 /hpf (NEGATIVE)
[2019-03-18] MEDS: DEXTROSE 5%-0.45% SALINE 1,000 ML IV SCH (22:58)
[2019-03-19 06:04] LABS: BASO % 0.4 % (0-2.0); EOS % 0.9 % (0-4.5); HEMATOCRIT 36.1 % (32.4-45.2); HEMOGLOBIN 12.1 GM/dL (10.7-15.3); LYMPH % 18.6 % (8-40); MCH 28.9 pg (25.7-33.7); MCHC 33.5 g/dl (32.0-36.0); MEAN CELL VOLUME 86.2 fl (80-96); MEAN PLT VOLUME 8.2 fl (7.5-11.1); MONO % 10.1 % (3.8-10.2); PLATELET COUNT 287 K/MM3 (134-434); RBC 4.18 M/mm3 (3.60-5.2); RDW 13.6 % (11.6-15.6); WHITE BLOOD COUNT 9.9 K/mm3 (4.0-10.0)
[2019-03-19 06:33] LABS: ALBUMIN 2.7 g/dl (3.4-5.0); BILIRUBIN,TOTAL 0.7 mg/dL (0.2-1); BLOOD UREA NITROGEN 16.2 mg/dL (7-18); CALCIUM 8.6 mg/dL (8.5-10.1); CREATININE 0.6 mg/dL (0.55-1.3); POTASSIUM 3.6 mmol/L (3.5-5.1); TOT PROT 5.5 g/dl (6.4-8.2)
[2019-03-19] MEDS ORDERED: CEFTRIAXONE 1 GM in DEXTROSE 5%-WATER - 50 ML IVPB SCH (10:00)
[2019-03-19] MEDS ORDERED: PANTOPRAZOLE 40 MG TABLET (FP) ONE (10:11)
[2019-03-19] MEDS ORDERED: ASPIRIN 81 MG CHEWABLE TABLETS ONE (10:11)
[2019-03-19] MEDS ORDERED: LOSARTAN POTASSIUM 50 MG TABLET (FP) ONE (10:12)
[2019-03-19] MEDS ORDERED: ESCITALOPRAM OXALATE 10 MG TABLET (FP) ONE (10:13)
[2019-03-19] MEDS: HEPARIN NA (PORCINE) 5,000 UNITS/ML 1ML VIAL SQ SCH ×2 (10:15→21:02)
[2019-03-19] MEDS: LOSARTAN POTASSIUM 50 MG TABLET (FP) PO SCH (10:15)
[2019-03-19] MEDS: SOLIFENACIN SUCCINATE 5 MG TAB PO SCH (10:15)
[2019-03-19] MEDS: ASPIRIN 81 MG CHEWABLE TABLETS PO SCH (10:15)
[2019-03-19] MEDS: PANTOPRAZOLE 40 MG TABLET (FP) PO SCH (10:15)
[2019-03-19] MEDS: ESCITALOPRAM OXALATE 10 MG TABLET (FP) PO SCH (10:15)
[2019-03-19] MEDS: PIPERACILLIN/TAZOB 3.375 GM 3.375 GM in DEXTROSE 5%-WATER - 50 ML IVPB SCH ×2 (10:30→21:01)
--- NOTE | 2019-03-19 10:35 | CON.ID ---
Consult Consult Specialty:: infectious diseases Referred by:: Fatuma Rivera Reason for Consultation:: ams,confusion,r/o uti - History of Present Illness Chief Complaint: ams History of Present Illness: 83 year old female with a past medical history of HTN, HLD, and recurrent epistaxis here today for evaluation of altered mental status. Per the daughter and grandson at bedside, their grandmother (the patient) is normally able to state her name and recognize her surroundings and familiar people. Was last seen at this baseline at 8:30 am. When the practical nursing teacher came to the house, she was more confused, mostly silent, and scratching herself incessantly. The patient is unable to provide history and does not respond to questions, but is alert. Per the family, they state she was complaining of suprapubic pain yesterday. For 1 week, she has had back pain (unable to specify where). She is known to have recurrent falls (denies she is on AC). above history taken from the charts as patient cannot give history and also her daughter who is here - History Source History Provided By: Family Member, Medical Record Limitations to Obtaining History: Clinical Condition - Past Medical History Cardio/Vascular: Yes: HTN, Hyperlipdemia - Past Surgical History Past Surgical History: Yes: None - Alcohol/Substance Use Hx Alcohol Use: No - Smoking History Smoking history: Unknown if ever smoked Have you smoked in the past 12 months: No Home Medications - Allergies Allergies/Adverse Reactions: Allergies Allergy/AdvReac Type Severity Reaction Status Date / Time No Known Allergies Allergy Verified 03/18/19 18:49 - Home Medications Home Medications: Ambulatory Orders Aspirin [ASA -] 81 mg PO ASDIR 10/09/14 Escitalopram Oxalate [Lexapro -] 10 mg PO DAILY 10/09/14 Olmesartan Medoxomil [Benicar -] 20 mg PO DAILY 10/09/14 Omeprazole [Prilosec (RX)] 20 mg PO DAILY 10/09/14 Rosuvastatin Calcium [Crestor] 5 mg PO HS 10/09/14 Solifenacin Succinate [Vesicare] 5 mg PO DAILY 10/09/14 Review of Systems Unable to obtain ROS, reason: unable to obtain Physical Exam Vital Signs: Vital Signs Temperature 97.5 F L 03/19/19 07:02 Pulse Rate 87 03/19/19 08:17 Respiratory Rate 16 03/19/19 08:17 Blood Pressure 159/83 03/19/19 08:17 O2 Sat by Pulse Oximetry (%) 98 03/19/19 08:17 Constitutional: Yes: Calm, Mild Distress Cardiovascular: Yes: Regular Rate and Rhythm Respiratory: Yes: Regular, CTA Bilaterally Gastrointestinal: Yes: Normal Bowel Sounds, Soft Musculoskeletal: Yes: WNL Extremities: Yes: WNL Neurological: Yes: Confusion, Lethargy Psychiatric: Yes: Other Labs: CBC, BMP 03/19/19 05:15 03/19/19 05:15 Imaging - Results Chest X-ray: Report Reviewed, Image Reviewed Cat Scan: Report Reviewed, Image Reviewed Assessment/Plan Problem List - Problems (1) Altered mental status Code(s): R41.82 - ALTERED MENTAL STATUS, UNSPECIFIED Qualifiers: Altered mental status type: unspecified Qualified Code(s): R41.82 - Altered mental status, unspecified (2) UTI (urinary tract infection) Code(s): N39.0 - URINARY TRACT INFECTION, SITE NOT SPECIFIED Qualifiers: Urinary tract infection type: site unspecified Hematuria presence: without hematuria Qualified Code(s): N39.0 - Urinary tract infection, site not specified (3) Anemia Code(s): D64.9 - ANEMIA, UNSPECIFIED (4) HTN (hypertension) Code(s): I10 - ESSENTIAL (PRIMARY) HYPERTENSION (5) HLD (hyperlipidemia) Code(s): E78.5 - HYPERLIPIDEMIA, UNSPECIFIED plan continue ceftriaxone nutrition neurology rest as per the team
[2019-03-19] MEDS ORDERED: CEFTRIAXONE 1 GM/50 ML BAG ONE (10:40)
[2019-03-19] MEDS ORDERED: PIPERACILLIN/TAZOB 3.375 GM 3.375 GM/50 ML BAG IVPB ONE ×2 (10:43→10:46)
--- NOTE | 2019-03-19 16:31 | HP ---
Admitting History and Physical - Admission History of Present Illness: Pt is an 83 year old female with a past medical history of HTN, HLD, and recurrent epistaxis here today for evaluation of altered mental status. Per the daughter and grandson at bedside, their grandmother (the patient) is normally able to state her name and recognize her surroundings and familiar people. Was last seen at this baseline at 8:30 am. When the certified nursing attendant came to the house, she was more confused, mostly silent, and scratching herself incessantly. The patient is unable to provide history and does not respond to questions, but is alert. Per the family, they state she was complaining of suprapubic pain yesterday. For 1 week, she has had back pain (unable to specify where). She is known to have recurrent falls (denies she is on AC). - Past Medical History Cardiovascular: Yes: HTN, Hyperlipdemia - Past Surgical History Past Surgical History: Yes: None - Smoking History Smoking history: Unknown if ever smoked Have you smoked in the past 12 months: No - Alcohol/Substance Use Hx Alcohol Use: No Home Medications - Allergies Allergies/Adverse Reactions: Allergies Allergy/AdvReac Type Severity Reaction Status Date / Time No Known Allergies Allergy Verified 03/18/19 18:49 - Home Medications Home Medications: Ambulatory Orders Aspirin [ASA -] 81 mg PO ASDIR 10/09/14 Escitalopram Oxalate [Lexapro -] 10 mg PO DAILY 10/09/14 Olmesartan Medoxomil [Benicar -] 20 mg PO DAILY 10/09/14 Omeprazole [Prilosec (RX)] 20 mg PO DAILY 10/09/14 Rosuvastatin Calcium [Crestor] 5 mg PO HS 10/09/14 Solifenacin Succinate [Vesicare] 5 mg PO DAILY 10/09/14 Family Disease History - Family Disease History Family History: Unable to Obtain Review of Systems Unable to obtain ROS, reason: Altered mental status Physical Examination Vital Signs: Vital Signs Temperature 97.3 F L 03/19/19 15:35 Pulse Rate 86 03/19/19 15:35 Respiratory Rate 18 03/19/19 15:35 Blood Pressure 146/96 03/19/19 15:35 O2 Sat by Pulse Oximetry (%) 97 03/19/19 15:35 Constitutional: Yes: No Distress HENT: Yes: WNL Neck: Yes: WNL, Supple Cardiovascular: Yes: WNL, Regular Rate and Rhythm Respiratory: Yes: WNL, Regular, CTA Bilaterally Gastrointestinal: Yes: WNL, Normal Bowel Sounds, Soft Musculoskeletal: Yes: WNL Extremities: Yes: WNL Edema: No Neurological: Yes: Other (Awake) ...Motor Strength: WNL Labs: CBC, BMP 03/19/19 05:15 03/19/19 05:15 Problem List - Problems (1) Altered mental status Assessment/Plan: Probably due to metabolic encephalopathy Due to UTI Cont IVF Pt w/ probable baseline dementia Will get neuro consult Code(s): R41.82 - ALTERED MENTAL STATUS, UNSPECIFIED Qualifiers: Altered mental status type: unspecified Qualified Code(s): R41.82 - Altered mental status, unspecified (2) UTI (urinary tract infection) Assessment/Plan: Cont IV ceftriaxone Follow cultures ID consult Cont IVF Code(s): N39.0 - URINARY TRACT INFECTION, SITE NOT SPECIFIED Qualifiers: Urinary tract infection type: site unspecified Hematuria presence: without hematuria Qualified Code(s): N39.0 - Urinary tract infection, site not specified (3) Anemia Assessment/Plan: H/H stable Code(s): D64.9 - ANEMIA, UNSPECIFIED (4) HTN (hypertension) Assessment/Plan: BP stable Cont losartan Code(s): I10 - ESSENTIAL (PRIMARY) HYPERTENSION (5) HLD (hyperlipidemia) Assessment/Plan: Cont crestor Code(s): E78.5 - HYPERLIPIDEMIA, UNSPECIFIED
[2019-03-19] MEDS: DEXTROSE 5%-0.45% SALINE 1,000 ML IV SCH ×2 (19:04→22:43)
[2019-03-19] MEDS ORDERED: PIPERACILLIN/TAZOBACTAM 3.375 GM VIAL IVPB ONE (20:12)
[2019-03-19] MEDS ORDERED: DEXTROSE 5%-WATER - 50 ML IVPB ONE (20:12)
[2019-03-19] MEDS: ROSUVASTATIN CA 5 MG TABLET (FP) PO SCH (21:02)
[2019-03-20] MEDS: DEXTROSE 5%-0.45% SALINE 1,000 ML IV SCH ×2 (05:43→08:05)
[2019-03-20 08:59] LABS: BASO % 0.6 % (0-2.0); EOS % 1.6 % (0-4.5); HEMATOCRIT 33.7 % (32.4-45.2); HEMOGLOBIN 11.5 GM/dL (10.7-15.3); LYMPH % 16.4 % (8-40); MCH 29.4 pg (25.7-33.7); MCHC 34.1 g/dl (32.0-36.0); MEAN CELL VOLUME 86.2 fl (80-96); MONO % 7.8 % (3.8-10.2); NEUT % 73.6 % (42.8-82.8); PLATELET COUNT 284 K/MM3 (134-434); RBC 3.91 M/mm3 (3.60-5.2); RDW 13.8 % (11.6-15.6)
[2019-03-20 09:32] LABS: ALBUMIN 2.5 g/dl (3.4-5.0); BILIRUBIN,TOTAL 0.8 mg/dL (0.2-1); BLOOD UREA NITROGEN 11.7 mg/dL (7-18); CALCIUM 8.5 mg/dL (8.5-10.1); CREATININE 0.6 mg/dL (0.55-1.3); POTASSIUM 3.6 mmol/L (3.5-5.1); TOT PROT 5.3 g/dl (6.4-8.2)
[2019-03-20] MEDS ORDERED: PIPERACILLIN/TAZOBACTAM 3.375 GM VIAL IVPB ONE ×2 (10:03→23:37)
[2019-03-20] MEDS ORDERED: DEXTROSE 5%-WATER - 50 ML IVPB ONE ×2 (10:03→23:37)
[2019-03-20] MEDS: PIPERACILLIN/TAZOB 3.375 GM 3.375 GM in DEXTROSE 5%-WATER - 50 ML IVPB SCH (10:08)
[2019-03-20] MEDS: ASPIRIN 81 MG CHEWABLE TABLETS PO SCH (10:08)
[2019-03-20] MEDS: LOSARTAN POTASSIUM 50 MG TABLET (FP) PO SCH (10:08)
[2019-03-20] MEDS: SOLIFENACIN SUCCINATE 5 MG TAB PO SCH (10:08)
[2019-03-20] MEDS: PANTOPRAZOLE 40 MG TABLET (FP) PO SCH (10:08)
[2019-03-20] MEDS: ESCITALOPRAM OXALATE 10 MG TABLET (FP) PO SCH (10:09)
[2019-03-20] MEDS: HEPARIN NA (PORCINE) 5,000 UNITS/ML 1ML VIAL SQ SCH (10:09)
--- NOTE | 2019-03-20 10:11 | CONSULT ---
Consult - text type - Consultation Consultation Note: NEUROLOGY CONSULT GREATLY APPRECIATED: This 83 yo Georgian-Speaking woman with HTN, HLD, depression, GERD. Maintained on ASA, escitalopram 10 mg, olmesartan, omeprazole, rosuvastatin, solifenacin. Admitted 2 days ago after aide and family noticed change in patient's orientation. Found with leukocytosis (12.6K) , low grade fever and + UTI (WBC=73) - now on IV cetriaxone. Previous history of falls per records including ED visit here on 02/[address] of head was done Pt unable to provide cogent history. CK 1000 -> 361. Head CT (reviewed): Moderate diffuse cerebral atrophy with extensive chronic B/ L periventricular ischemic changes. Possible Right frontal cortical ischemic changes. All unchanged from 02/25/19. CT of C spine: Multi-level DJD. BLAKE: Neck restricted in all directions. Incontinent in diaper. NEURO: Awake, alert, responsive. Follows some commands. Hypophonic. Responds to name. No location, month, or year. +glabella, snout, grasps, palmomentals CNII-CNXII: EOM's full. Possible left field cut. No facial. Gag ok - swallowing small sips H20 without difficulty Motor: No obvious drift. + rest tremor and cogwheeling. Symmetric grasps. RIGID tone legs > arms. Reflexes brisk throughout with spread. L Babinski equivocal. R Babinski silent. Coordination: No R FTN dystaxia but slowed. Possible neglect of left arm. Sensation: Decreased pinch on L compared to R. Gait: deferred Impression: Moderate B/L Cerebral dysfunction (OMS, chronic) due to extensive DEVELOPMENT ADVISOR microvascular +/- Alzheimer's ? R cerebral accentuation (age indeterminate) Mild Extrapyramidal features- may be contributing to chronic gait dysfunction Worsened by Toxic-Metabolic Encephalopathy (UTI/urosepsis) Suggest: Continue antibiotics and hydration Check TSH, RPR, B12 PT eval vs. contracture creative services writer for home safety check Thank you very much, Oscar Ga MD
--- NOTE | 2019-03-20 10:52 | PN ---
Progress Note, Physician History of Present Illness: patient looks much better more awake and alert organism noted - Current Medication List Current Medications: Active Medications Acetaminophen (Tylenol -) 650 mg PO Q6H PRN PRN Reason: FEVER Aspirin (Asa -) 81 mg PO DAILY [facility] Last Admin: 03/20/19 10:08 Dose: 81 mg Escitalopram Oxalate (Lexapro -) 10 mg PO DAILY [facility] Last Admin: 03/20/19 10:09 Dose: 10 mg Heparin Sodium (Porcine) (Heparin -) 5,000 unit SQ BID [facility] Last Admin: 03/20/19 10:09 Dose: 5,000 unit Dextrose/Sodium Chloride (D5-1/2ns -) 1,000 mls @ 75 mls/hr IV ASDIR [facility] Last Admin: 03/20/19 08:05 Dose: 75 mls/hr Piperacillin Sod/Tazobactam (Sod 3.375 gm/ Dextrose) 50 mls @ 100 mls/hr IVPB BID [facility]; Protocol Last Admin: 03/20/19 10:08 Dose: 100 mls/hr Losartan Potassium (Cozaar -) 50 mg PO DAILY [facility] Last Admin: 03/20/19 10:08 Dose: 50 mg Pantoprazole Sodium (Protonix -) 40 mg PO DAILY [facility] Last Admin: 03/20/19 10:08 Dose: 40 mg Rosuvastatin Calcium (Crestor -) 5 mg PO HS [facility] Last Admin: 03/19/19 21:02 Dose: 5 mg Solifenacin (Vesicare -) 5 mg PO DAILY [facility] Last Admin: 03/20/19 10:08 Dose: 5 mg Thiamine HCl (Vitamin B1 Injection -) 250 mg IVPB TID [facility] Stop: 03/23/19 13:59 - Objective Vital Signs: Vital Signs Temperature 98.1 F 03/20/19 06:00 Pulse Rate 72 03/20/19 06:00 Respiratory Rate 18 03/20/19 06:00 Blood Pressure 141/75 03/20/19 06:00 O2 Sat by Pulse Oximetry (%) 97 03/19/19 18:01 Constitutional: Yes: No Distress, Calm Cardiovascular: Yes: S1, S2 Respiratory: Yes: Regular, CTA Bilaterally Gastrointestinal: Yes: Normal Bowel Sounds, Soft Musculoskeletal: Yes: WNL Extremities: Yes: WNL Neurological: Yes: Alert, Other Psychiatric: Yes: Other Labs: CBC, BMP 03/20/19 08:30 03/20/19 08:30 INR, PTT INR 1.20 (0.83-1.09) H 03/18/19 14:50 Assessment/Plan Problem List - Problems (1) Altered mental status Code(s): R41.82 - ALTERED MENTAL STATUS, UNSPECIFIED Qualifiers: Altered mental status type: unspecified Qualified Code(s): R41.82 - Altered mental status, unspecified (2) UTI (urinary tract infection) Code(s): N39.0 - URINARY TRACT INFECTION, SITE NOT SPECIFIED Qualifiers: Urinary tract infection type: site unspecified Hematuria presence: without hematuria Qualified Code(s): N39.0 - Urinary tract infection, site not specified (3) Anemia Code(s): D64.9 - ANEMIA, UNSPECIFIED (4) HTN (hypertension) Code(s): I10 - ESSENTIAL (PRIMARY) HYPERTENSION (5) HLD (hyperlipidemia) Code(s): E78.5 - HYPERLIPIDEMIA, UNSPECIFIED plan abx was changed to zosyn will see what sensitivities are nutrition neurology rest as per the team
[2019-03-20 13:17] VITALS: BMI 16.7
--- NOTE | 2019-03-20 14:06 | EKG ---
Test Reason : Blood Pressure : / mmHG Vent. Rate : 099 BPM Atrial Rate : 099 BPM P-R Int : 134 ms QRS Dur : 074 ms QT Int : 360 ms P-R-T Axes : 065 017 062 degrees QTc Int : 462 ms POOR DATA QUALITY, INTERPRETATION MAY BE ADVERSELY AFFECTED NORMAL SINUS RHYTHM NORMAL ECG WHEN COMPARED WITH ECG OF 08-MAR-2019 17:51, NO SIGNIFICANT CHANGE WAS FOUND Confirmed by KATHY CANALES MD ([id number]) on 03/20/2019 2:06:00 PM Referred By: Confirmed By:KATHY CANALES MD
[2019-03-20] MEDS: THIAMINE HCL 200 MG/2 ML VIAL IVPB SCH (14:59)
--- NOTE | 2019-03-21 | PN ---
Progress Note, Physician History of Present Illness: No new changes - Current Medication List Current Medications: Active Medications Acetaminophen (Tylenol -) 650 mg PO Q6H PRN PRN Reason: FEVER Last Admin: 03/20/19 13:25 Dose: 650 mg Aspirin (Asa -) 81 mg PO DAILY [facility] Last Admin: 03/20/19 10:08 Dose: 81 mg Escitalopram Oxalate (Lexapro -) 10 mg PO DAILY [facility] Last Admin: 03/20/19 10:09 Dose: 10 mg Heparin Sodium (Porcine) (Heparin -) 5,000 unit SQ BID [facility] Last Admin: 03/20/19 10:09 Dose: 5,000 unit Dextrose/Sodium Chloride (D5-1/2ns -) 1,000 mls @ 75 mls/hr IV ASDIR [facility] Last Admin: 03/20/19 08:05 Dose: 75 mls/hr Piperacillin Sod/Tazobactam (Sod 3.375 gm/ Dextrose) 50 mls @ 100 mls/hr IVPB BID [facility]; Protocol Last Admin: 03/20/19 10:08 Dose: 100 mls/hr Losartan Potassium (Cozaar -) 50 mg PO DAILY [facility] Last Admin: 03/20/19 10:08 Dose: 50 mg Pantoprazole Sodium (Protonix -) 40 mg PO DAILY [facility] Last Admin: 03/20/19 10:08 Dose: 40 mg Rosuvastatin Calcium (Crestor -) 5 mg PO HS [facility] Last Admin: 03/19/19 21:02 Dose: 5 mg Solifenacin (Vesicare -) 5 mg PO DAILY [facility] Last Admin: 03/20/19 10:08 Dose: 5 mg Thiamine HCl (Vitamin B1 Injection -) 250 mg IVPB TID [facility] Stop: 03/23/19 13:59 Last Admin: 03/20/19 14:59 Dose: 250 mg - Objective Vital Signs: Vital Signs Temperature 98.3 F 03/20/19 18:00 Pulse Rate 84 03/20/19 18:00 Respiratory Rate 20 03/20/19 18:00 Blood Pressure 125/53 L 03/20/19 18:00 O2 Sat by Pulse Oximetry (%) 96 03/20/19 09:00 HENT: Yes: WNL Neck: Yes: WNL, Supple Cardiovascular: Yes: WNL, Regular Rate and Rhythm Respiratory: Yes: WNL, Regular, CTA Bilaterally Gastrointestinal: Yes: WNL, Normal Bowel Sounds, Soft Edema: No Labs: CBC, BMP 03/20/19 08:30 03/20/19 08:30 INR, PTT INR 1.20 (0.83-1.09) H 03/18/19 14:50 Problem List - Problems (1) Altered mental status Assessment/Plan: Probably due to dementia/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 TEAM 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 vs toxic/metabolic encephalopathy Due to UTI Code(s): R41.82 - ALTERED MENTAL STATUS, UNSPECIFIED Qualifiers: Altered mental status type: unspecified Qualified Code(s): R41.82 - Altered mental status, unspecified (2) UTI (urinary tract infection) Assessment/Plan: Cont IV zosyn Urine culture (+) for proteus mirablis BC have remained negative Code(s): N39.0 - URINARY TRACT INFECTION, SITE NOT SPECIFIED Qualifiers: Urinary tract infection type: site unspecified Hematuria presence: without hematuria Qualified Code(s): N39.0 - Urinary tract infection, site not specified (3) Anemia Assessment/Plan: H/H stable Code(s): D64.9 - ANEMIA, UNSPECIFIED (4) HTN (hypertension) Assessment/Plan: BP stable Cont losartan Code(s): I10 - ESSENTIAL (PRIMARY) HYPERTENSION (5) HLD (hyperlipidemia) Assessment/Plan: Cont crestor Code(s): E78.5 - HYPERLIPIDEMIA, UNSPECIFIED
[2019-03-21] MEDS: DEXTROSE 5%-0.45% SALINE 1,000 ML IV SCH ×3 (00:11→23:15)
[2019-03-21] MEDS: PIPERACILLIN/TAZOB 3.375 GM 3.375 GM in DEXTROSE 5%-WATER - 50 ML IVPB SCH ×3 (00:13→22:50)
[2019-03-21] MEDS: THIAMINE HCL 200 MG/2 ML VIAL IVPB SCH ×4 (00:16→22:50)
[2019-03-21] MEDS: HEPARIN NA (PORCINE) 5,000 UNITS/ML 1ML VIAL SQ SCH ×3 (00:18→22:50)
[2019-03-21] MEDS: ROSUVASTATIN CA 5 MG TABLET (FP) PO SCH ×2 (00:19→22:50)
[2019-03-21] MEDS ORDERED: PT OWN MED DRAWER 7, Y5N ONE (09:51)
[2019-03-21] MEDS ORDERED: PIPERACILLIN/TAZOBACTAM 3.375 GM VIAL IVPB ONE ×2 (09:51→23:03)
[2019-03-21] MEDS ORDERED: DEXTROSE 5%-WATER - 50 ML IVPB ONE ×2 (09:51→23:03)
[2019-03-21] MEDS: ESCITALOPRAM OXALATE 10 MG TABLET (FP) PO SCH (10:10)
[2019-03-21] MEDS: SOLIFENACIN SUCCINATE 5 MG TAB PO SCH (10:10)
[2019-03-21] MEDS: LOSARTAN POTASSIUM 50 MG TABLET (FP) PO SCH (10:10)
[2019-03-21] MEDS: ASPIRIN 81 MG CHEWABLE TABLETS PO SCH (10:10)
[2019-03-21] MEDS: PANTOPRAZOLE 40 MG TABLET (FP) PO SCH (10:10)
--- NOTE | 2019-03-21 12:49 | PN ---
Progress Note, Physician History of Present Illness: stable no new issues - Current Medication List Current Medications: Active Medications Acetaminophen (Tylenol -) 650 mg PO Q6H PRN PRN Reason: FEVER Last Admin: 03/20/19 13:25 Dose: 650 mg Aspirin (Asa -) 81 mg PO DAILY [facility] Last Admin: 03/21/19 10:10 Dose: 81 mg Escitalopram Oxalate (Lexapro -) 10 mg PO DAILY [facility] Last Admin: 03/21/19 10:10 Dose: 10 mg Heparin Sodium (Porcine) (Heparin -) 5,000 unit SQ BID [facility] Last Admin: 03/21/19 10:11 Dose: 5,000 unit Dextrose/Sodium Chloride (D5-1/2ns -) 1,000 mls @ 75 mls/hr IV ASDIR [facility] Last Admin: 03/21/19 00:11 Dose: 75 mls/hr Piperacillin Sod/Tazobactam (Sod 3.375 gm/ Dextrose) 50 mls @ 100 mls/hr IVPB BID [facility]; Protocol Last Admin: 03/21/19 10:11 Dose: 100 mls/hr Losartan Potassium (Cozaar -) 50 mg PO DAILY [facility] Last Admin: 03/21/19 10:10 Dose: 50 mg Pantoprazole Sodium (Protonix -) 40 mg PO DAILY [facility] Last Admin: 03/21/19 10:10 Dose: 40 mg Rosuvastatin Calcium (Crestor -) 5 mg PO HS [facility] Last Admin: 03/21/19 00:19 Dose: 5 mg Solifenacin (Vesicare -) 5 mg PO DAILY [facility] Last Admin: 03/21/19 10:10 Dose: 5 mg Thiamine HCl (Vitamin B1 Injection -) 250 mg IVPB TID [facility] Stop: 03/23/19 13:59 Last Admin: 03/21/19 06:46 Dose: 250 mg - Objective Vital Signs: Vital Signs Temperature 97.9 F 03/21/19 10:01 Pulse Rate 80 03/21/19 10:01 Respiratory Rate 20 03/21/19 10:01 Blood Pressure 160/75 03/21/19 10:01 O2 Sat by Pulse Oximetry (%) 100 03/20/19 21:00 Constitutional: Yes: No Distress, Calm Cardiovascular: Yes: S1, S2 Respiratory: Yes: Regular Gastrointestinal: Yes: Normal Bowel Sounds, Soft Musculoskeletal: Yes: Other Extremities: Yes: Other Neurological: Yes: Alert Psychiatric: Yes: Other Labs: CBC, BMP 03/20/19 08:30 03/20/19 08:30 INR, PTT INR 1.20 (0.83-1.09) H 03/18/19 14:50 Assessment/Plan Problem List - Problems (1) Altered mental status Code(s): R41.82 - ALTERED MENTAL STATUS, UNSPECIFIED Qualifiers: Altered mental status type: unspecified Qualified Code(s): R41.82 - Altered mental status, unspecified (2) UTI (urinary tract infection) Code(s): N39.0 - URINARY TRACT INFECTION, SITE NOT SPECIFIED Qualifiers: Urinary tract infection type: site unspecified Hematuria presence: without hematuria Qualified Code(s): N39.0 - Urinary tract infection, site not specified (3) Anemia Code(s): D64.9 - ANEMIA, UNSPECIFIED (4) HTN (hypertension) Code(s): I10 - ESSENTIAL (PRIMARY) HYPERTENSION (5) HLD (hyperlipidemia) Code(s): E78.5 - HYPERLIPIDEMIA, UNSPECIFIED plan continue current mgmt improving
--- NOTE | 2019-03-21 22:17 | PN ---
Progress Note, Physician History of Present Illness: No new changes - Current Medication List Current Medications: Active Medications Acetaminophen (Tylenol -) 650 mg PO Q6H PRN PRN Reason: FEVER Last Admin: 03/20/19 13:25 Dose: 650 mg Aspirin (Asa -) 81 mg PO DAILY [facility] Last Admin: 03/21/19 10:10 Dose: 81 mg Escitalopram Oxalate (Lexapro -) 10 mg PO DAILY [facility] Last Admin: 03/21/19 10:10 Dose: 10 mg Heparin Sodium (Porcine) (Heparin -) 5,000 unit SQ BID [facility] Last Admin: 03/21/19 10:11 Dose: 5,000 unit Dextrose/Sodium Chloride (D5-1/2ns -) 1,000 mls @ 75 mls/hr IV ASDIR [facility] Last Admin: 03/21/19 15:59 Dose: 75 mls/hr Piperacillin Sod/Tazobactam (Sod 3.375 gm/ Dextrose) 50 mls @ 100 mls/hr IVPB BID [facility]; Protocol Last Admin: 03/21/19 10:11 Dose: 100 mls/hr Losartan Potassium (Cozaar -) 50 mg PO DAILY [facility] Last Admin: 03/21/19 10:10 Dose: 50 mg Pantoprazole Sodium (Protonix -) 40 mg PO DAILY [facility] Last Admin: 03/21/19 10:10 Dose: 40 mg Rosuvastatin Calcium (Crestor -) 5 mg PO HS [facility] Last Admin: 03/21/19 00:19 Dose: 5 mg Solifenacin (Vesicare -) 5 mg PO DAILY [facility] Last Admin: 03/21/19 10:10 Dose: 5 mg Thiamine HCl (Vitamin B1 Injection -) 250 mg IVPB TID [facility] Stop: 03/23/19 13:59 Last Admin: 03/21/19 14:02 Dose: 250 mg - Objective Vital Signs: Vital Signs Temperature 98.6 F 03/21/19 20:25 Pulse Rate 94 H 03/21/19 20:25 Respiratory Rate 18 03/21/19 20:25 Blood Pressure 123/52 L 03/21/19 20:25 O2 Sat by Pulse Oximetry (%) 100 03/21/19 09:00 Neck: Yes: WNL, Supple Cardiovascular: Yes: WNL, Regular Rate and Rhythm Respiratory: Yes: WNL, Regular, CTA Bilaterally Gastrointestinal: Yes: WNL, Normal Bowel Sounds, Soft Extremities: Yes: WNL Edema: No Labs: CBC, BMP 03/20/19 08:30 03/20/19 08:30 INR, PTT INR 1.20 (0.83-1.09) H 03/18/19 14:50 Problem List - Problems (1) Altered mental status Assessment/Plan: Probably due to dementia/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 vs toxic/metabolic encephalopathy Due to UTI Cont IVF PT eval Code(s): R41.82 - ALTERED MENTAL STATUS, UNSPECIFIED Qualifiers: Altered mental status type: unspecified Qualified Code(s): R41.82 - Altered mental status, unspecified (2) UTI (urinary tract infection) Assessment/Plan: Cont IV zosyn Urine culture (+) for proteus mirablis BC have remained negative Code(s): N39.0 - URINARY TRACT INFECTION, SITE NOT SPECIFIED Qualifiers: Urinary tract infection type: site unspecified Hematuria presence: without hematuria Qualified Code(s): N39.0 - Urinary tract infection, site not specified (3) Anemia Assessment/Plan: H/H stable Code(s): D64.9 - ANEMIA, UNSPECIFIED (4) HTN (hypertension) Assessment/Plan: BP stable Cont losartan Code(s): I10 - ESSENTIAL (PRIMARY) HYPERTENSION (5) HLD (hyperlipidemia) Assessment/Plan: Cont crestor Code(s): E78.5 - HYPERLIPIDEMIA, UNSPECIFIED
[2019-03-22] MEDS: THIAMINE HCL 200 MG/2 ML VIAL IVPB SCH ×3 (06:11→23:54)
[2019-03-22] MEDS ORDERED: DEXTROSE 5%-WATER - 50 ML IVPB ONE ×2 (11:02→22:44)
[2019-03-22] MEDS ORDERED: PIPERACILLIN/TAZOBACTAM 3.375 GM VIAL IVPB ONE ×2 (11:02→22:44)
[2019-03-22] MEDS: LOSARTAN POTASSIUM 50 MG TABLET (FP) PO SCH (11:06)
[2019-03-22] MEDS: SOLIFENACIN SUCCINATE 5 MG TAB PO SCH (11:06)
[2019-03-22] MEDS: PANTOPRAZOLE 40 MG TABLET (FP) PO SCH (11:06)
[2019-03-22] MEDS: ESCITALOPRAM OXALATE 10 MG TABLET (FP) PO SCH (11:06)
[2019-03-22] MEDS: HEPARIN NA (PORCINE) 5,000 UNITS/ML 1ML VIAL SQ SCH ×2 (11:06→23:52)
[2019-03-22] MEDS: PIPERACILLIN/TAZOB 3.375 GM 3.375 GM in DEXTROSE 5%-WATER - 50 ML IVPB SCH ×2 (11:06→23:54)
[2019-03-22] MEDS: ASPIRIN 81 MG CHEWABLE TABLETS PO SCH (11:06)
[2019-03-22] MEDS: DEXTROSE 5%-0.45% SALINE 1,000 ML IV SCH (11:11)
--- NOTE | 2019-03-22 12:27 | PN ---
Progress Note, Physician History of Present Illness: stable no new issues dementia - Current Medication List Current Medications: Active Medications Acetaminophen (Tylenol -) 650 mg PO Q6H PRN PRN Reason: FEVER Last Admin: 03/20/19 13:25 Dose: 650 mg Aspirin (Asa -) 81 mg PO DAILY [facility] Last Admin: 03/22/19 11:06 Dose: 81 mg Escitalopram Oxalate (Lexapro -) 10 mg PO DAILY [facility] Last Admin: 03/22/19 11:06 Dose: 10 mg Heparin Sodium (Porcine) (Heparin -) 5,000 unit SQ BID [facility] Last Admin: 03/22/19 11:06 Dose: 5,000 unit Dextrose/Sodium Chloride (D5-1/2ns -) 1,000 mls @ 75 mls/hr IV ASDIR [facility] Last Admin: 03/22/19 11:11 Dose: 75 mls/hr Piperacillin Sod/Tazobactam (Sod 3.375 gm/ Dextrose) 50 mls @ 100 mls/hr IVPB BID [facility]; Protocol Last Admin: 03/22/19 11:06 Dose: 100 mls/hr Losartan Potassium (Cozaar -) 50 mg PO DAILY [facility] Last Admin: 03/22/19 11:06 Dose: 50 mg Pantoprazole Sodium (Protonix -) 40 mg PO DAILY [facility] Last Admin: 03/22/19 11:06 Dose: 40 mg Rosuvastatin Calcium (Crestor -) 5 mg PO HS [facility] Last Admin: 03/21/19 22:50 Dose: 5 mg Solifenacin (Vesicare -) 5 mg PO DAILY [facility] Last Admin: 03/22/19 11:06 Dose: 5 mg Thiamine HCl (Vitamin B1 Injection -) 250 mg IVPB TID [facility] Stop: 03/23/19 13:59 Last Admin: 03/22/19 06:11 Dose: 250 mg - Objective Vital Signs: Vital Signs Temperature 98.4 F 03/22/19 06:00 Pulse Rate 96 H 03/22/19 06:00 Respiratory Rate 18 03/22/19 06:00 Blood Pressure 154/69 03/22/19 06:00 O2 Sat by Pulse Oximetry (%) 100 03/21/19 21:00 Constitutional: Yes: No Distress, Calm Cardiovascular: Yes: S1, S2 Respiratory: Yes: Regular, CTA Bilaterally Gastrointestinal: Yes: Normal Bowel Sounds, Soft Musculoskeletal: Yes: WNL Extremities: Yes: WNL Neurological: Yes: Alert, Other Labs: CBC, BMP 03/20/19 08:30 03/20/19 08:30 INR, PTT INR 1.20 (0.83-1.09) H 03/18/19 14:50 Assessment/Plan Problem List - Problems (1) Altered mental status Code(s): R41.82 - ALTERED MENTAL STATUS, UNSPECIFIED Qualifiers: Altered mental status type: unspecified Qualified Code(s): R41.82 - Altered mental status, unspecified (2) UTI (urinary tract infection) Code(s): N39.0 - URINARY TRACT INFECTION, SITE NOT SPECIFIED Qualifiers: Urinary tract infection type: site unspecified Hematuria presence: without hematuria Qualified Code(s): N39.0 - Urinary tract infection, site not specified (3) Anemia Code(s): D64.9 - ANEMIA, UNSPECIFIED (4) HTN (hypertension) Code(s): I10 - ESSENTIAL (PRIMARY) HYPERTENSION (5) HLD (hyperlipidemia) Code(s): E78.5 - HYPERLIPIDEMIA, UNSPECIFIED plan continue current mgmt improving gilma change to po in a day monitor mental status
--- NOTE | 2019-03-22 23:02 | PN ---
Progress Note, Physician History of Present Illness: No new changes - Current Medication List Current Medications: Active Medications Acetaminophen (Tylenol -) 650 mg PO Q6H PRN PRN Reason: FEVER Last Admin: 03/20/19 13:25 Dose: 650 mg Aspirin (Asa -) 81 mg PO DAILY [facility] Last Admin: 03/22/19 11:06 Dose: 81 mg Escitalopram Oxalate (Lexapro -) 10 mg PO DAILY [facility] Last Admin: 03/22/19 11:06 Dose: 10 mg Heparin Sodium (Porcine) (Heparin -) 5,000 unit SQ BID [facility] Last Admin: 03/22/19 11:06 Dose: 5,000 unit Dextrose/Sodium Chloride (D5-1/2ns -) 1,000 mls @ 75 mls/hr IV ASDIR [facility] Last Admin: 03/22/19 11:11 Dose: 75 mls/hr Piperacillin Sod/Tazobactam (Sod 3.375 gm/ Dextrose) 50 mls @ 100 mls/hr IVPB BID [facility]; Protocol Last Admin: 03/22/19 11:06 Dose: 100 mls/hr Losartan Potassium (Cozaar -) 50 mg PO DAILY [facility] Last Admin: 03/22/19 11:06 Dose: 50 mg Pantoprazole Sodium (Protonix -) 40 mg PO DAILY [facility] Last Admin: 03/22/19 11:06 Dose: 40 mg Rosuvastatin Calcium (Crestor -) 5 mg PO HS [facility] Last Admin: 03/21/19 22:50 Dose: 5 mg Solifenacin (Vesicare -) 5 mg PO DAILY [facility] Last Admin: 03/22/19 11:06 Dose: 5 mg Thiamine HCl (Vitamin B1 Injection -) 250 mg IVPB TID [facility] Stop: 03/23/19 13:59 Last Admin: 03/22/19 17:43 Dose: 250 mg - Objective Vital Signs: Vital Signs Temperature 98.0 F 03/22/19 18:00 Pulse Rate 92 H 03/22/19 18:00 Respiratory Rate 18 03/22/19 18:00 Blood Pressure 133/60 03/22/19 18:00 O2 Sat by Pulse Oximetry (%) 100 03/22/19 09:00 HENT: Yes: WNL Neck: Yes: WNL, Supple Cardiovascular: Yes: WNL, Regular Rate and Rhythm Respiratory: Yes: WNL, Regular, CTA Bilaterally Gastrointestinal: Yes: WNL, Normal Bowel Sounds, Soft Edema: No Labs: CBC, BMP 03/20/19 08:30 03/20/19 08:30 INR, PTT INR 1.20 (0.83-1.09) H 03/18/19 14:50 Problem List - Problems (1) Altered mental status Assessment/Plan: 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 due to 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 vs toxic/metabolic encephalopathy Due to UTI Code(s): R41.82 - ALTERED MENTAL STATUS, UNSPECIFIED Qualifiers: Altered mental status type: unspecified Qualified Code(s): R41.82 - Altered mental status, unspecified (2) UTI (urinary tract infection) Assessment/Plan: Cont IV zosyn Urine culture (+) for proteus mirablis BC have remained negative As per probably change to po antibxs in am PT eval DC planning for am' Code(s): N39.0 - URINARY TRACT INFECTION, SITE NOT SPECIFIED Qualifiers: Urinary tract infection type: site unspecified Hematuria presence: without hematuria Qualified Code(s): N39.0 - Urinary tract infection, site not specified (3) Anemia Assessment/Plan: H/H stable Code(s): D64.9 - ANEMIA, UNSPECIFIED (4) HTN (hypertension) Assessment/Plan: BP stable Cont losartan Code(s): I10 - ESSENTIAL (PRIMARY) HYPERTENSION (5) HLD (hyperlipidemia) Assessment/Plan: Cont crestor Code(s): E78.5 - HYPERLIPIDEMIA, UNSPECIFIED (6) Rhabdomyolysis Code(s): M62.82 - RHABDOMYOLYSIS (7) Rhabdomyolysis Assessment/Plan: Elevated CPK decreased Will dc IVF Code(s): M62.82 - RHABDOMYOLYSIS
[2019-03-22] MEDS: ROSUVASTATIN CA 5 MG TABLET (FP) PO SCH (23:51)
[2019-03-23] MEDS: THIAMINE HCL 200 MG/2 ML VIAL IVPB SCH (07:05)
--- NOTE | 2019-03-23 10:12 | PN ---
Progress Note, Physician History of Present Illness: stable no new issues dementia - Current Medication List Current Medications: Active Medications Acetaminophen (Tylenol -) 650 mg PO Q6H PRN PRN Reason: FEVER Last Admin: 03/20/19 13:25 Dose: 650 mg Aspirin (Asa -) 81 mg PO DAILY [facility] Last Admin: 03/22/19 11:06 Dose: 81 mg Escitalopram Oxalate (Lexapro -) 10 mg PO DAILY [facility] Last Admin: 03/22/19 11:06 Dose: 10 mg Heparin Sodium (Porcine) (Heparin -) 5,000 unit SQ BID [facility] Last Admin: 03/22/19 23:52 Dose: 5,000 unit Piperacillin Sod/Tazobactam (Sod 3.375 gm/ Dextrose) 50 mls @ 100 mls/hr IVPB BID [facility]; Protocol Last Admin: 03/22/19 23:54 Dose: 100 mls/hr Losartan Potassium (Cozaar -) 50 mg PO DAILY [facility] Last Admin: 03/22/19 11:06 Dose: 50 mg Pantoprazole Sodium (Protonix -) 40 mg PO DAILY [facility] Last Admin: 03/22/19 11:06 Dose: 40 mg Rosuvastatin Calcium (Crestor -) 5 mg PO HS [facility] Last Admin: 03/22/19 23:51 Dose: 5 mg Solifenacin (Vesicare -) 5 mg PO DAILY [facility] Last Admin: 03/22/19 11:06 Dose: 5 mg Thiamine HCl (Vitamin B1 Injection -) 250 mg IVPB TID [facility] Stop: 03/23/19 13:59 Last Admin: 03/23/19 07:05 Dose: 250 mg - Objective Vital Signs: Vital Signs Temperature 98.2 F 03/23/19 06:00 Pulse Rate 81 03/23/19 06:00 Respiratory Rate 18 03/23/19 06:00 Blood Pressure 146/60 03/23/19 06:00 O2 Sat by Pulse Oximetry (%) 100 03/22/19 21:00 Constitutional: Yes: No Distress, Calm Cardiovascular: Yes: Regular Rate and Rhythm Respiratory: Yes: Regular, CTA Bilaterally Gastrointestinal: Yes: Normal Bowel Sounds, Soft Musculoskeletal: Yes: WNL Extremities: Yes: WNL Neurological: Yes: Alert, Other Labs: CBC, BMP 03/20/19 08:30 03/20/19 08:30 INR, PTT INR 1.20 (0.83-1.09) H 03/18/19 14:50 Assessment/Plan Problem List - Problems (1) Altered mental status Code(s): R41.82 - ALTERED MENTAL STATUS, UNSPECIFIED Qualifiers: Altered mental status type: unspecified Qualified Code(s): R41.82 - Altered mental status, unspecified (2) UTI (urinary tract infection) Code(s): N39.0 - URINARY TRACT INFECTION, SITE NOT SPECIFIED Qualifiers: Urinary tract infection type: site unspecified Hematuria presence: without hematuria Qualified Code(s): N39.0 - Urinary tract infection, site not specified (3) Anemia Code(s): D64.9 - ANEMIA, UNSPECIFIED (4) HTN (hypertension) Code(s): I10 - ESSENTIAL (PRIMARY) HYPERTENSION (5) HLD (hyperlipidemia) Code(s): E78.5 - HYPERLIPIDEMIA, UNSPECIFIED plan continue current mgmt improving will change to oral rest as per the team
[2019-03-23] MEDS ORDERED: DONEPEZIL HCL 5 MG TABLET (FP) PO SCH (10:45)
--- NOTE | 2019-03-23 10:51 | PN ---
Progress Note (short form) - Note Progress Note: NEUROLOGY PROGRESS: Events reviewed and discussed. Pt pending D/C on oral antibiotics for UTI. Pleasantly confused, unable to provide cogent history. OMS studies all negative: B12= 943, TSH 2.43, RPR= nonreactive BLAKE: P 80s. NEURO: Awake, alert, responsive. Follows most commands. Ox to name. No age. No place, time, year. + glabella, snout, grasps, palmomentals [id number]: Blinks to threat. Motor: +rest tremor L thumb and cogwheeling B/L. Symmetric grasps. Rigid tone legs > arms with R knee contracture. Reflexes brisk with spread. L Babinski. Coordination: No R FTN dystaxia. Possible neglect left arm. Sensation: Decreased pinch on L compared to right. 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 R cerebral accentuation (age indeterminate) Mild Extrapyramidal features- may be contributing to chronic gait dysfunction Worsened by Toxic-Metabolic Encephalopathy (UTI/urosepsis) Suggest: Continue antibiotics and hydration Add donepezil 5 mg po QAM Bedside PT vs. contracture director of employer services eval for [facility] Thank you very much, Oscar Ga MD
[2019-03-23] MEDS: LOSARTAN POTASSIUM 50 MG TABLET (FP) PO SCH (12:49)
[2019-03-23] MEDS: ESCITALOPRAM OXALATE 10 MG TABLET (FP) PO SCH (12:50)
[2019-03-23] MEDS: SOLIFENACIN SUCCINATE 5 MG TAB PO SCH (12:50)
[2019-03-23] MEDS: HEPARIN NA (PORCINE) 5,000 UNITS/ML 1ML VIAL SQ SCH (12:50)
[2019-03-23] MEDS: ASPIRIN 81 MG CHEWABLE TABLETS PO SCH (12:50)
[2019-03-23] MEDS: PANTOPRAZOLE 40 MG TABLET (FP) PO SCH (12:50)
[2019-03-23] MEDS: PIPERACILLIN/TAZOB 3.375 GM 3.375 GM in DEXTROSE 5%-WATER - 50 ML IVPB SCH (12:51)
[2019-03-23] MEDS: DEXTROSE 5%-0.45% SALINE 1,000 ML IV SCH (12:51)
[2019-03-23 15:04] VITALS: BP 121/60; PULSE 83; TEMP 98.9
[2019-03-23] MEDS ORDERED: AMOX TR/POT CLAV 500MG/125MG TABLETS (FP) PO SCH (17:30)
--- NOTE | 2019-03-27 11:56 | EKG ---
Test Reason : Blood Pressure : / mmHG Vent. Rate : 087 BPM Atrial Rate : 087 BPM P-R Int : 148 ms QRS Dur : 078 ms QT Int : 376 ms P-R-T Axes : 043 002 053 degrees QTc Int : 452 ms POOR DATA QUALITY, INTERPRETATION MAY BE ADVERSELY AFFECTED NORMAL SINUS RHYTHM NONSPECIFIC T WAVE ABNORMALITY ABNORMAL ECG WHEN COMPARED WITH ECG OF 18-MAR-2019 13:58, NO SIGNIFICANT CHANGE WAS FOUND Confirmed by KATHY CANALES MD ([id number]) on 03/27/2019 11:55:52 AM Referred By: Confirmed By:KATHY CANALES MD
== END 2019-03-23 16:53 | DRG 689 ==
LOC: JER 13:53 → JERBED 21:18 → J5S 03-19 15:38
PROVIDERS: ADMIT Internal Medicine; ATTEND Internal Medicine
DX: N39.0 Urinary tract infection, site not specified (principal); G93.41 Metabolic encephalopathy; M62.82 Rhabdomyolysis; I10 Essential (primary) hypertension; E78.5 Hyperlipidemia, unspecified; F32.9 Major depressive disorder, single episode, unspecified; D64.9 Anemia, unspecified; R41.82 Altered mental status, unspecified; B96.4 Proteus (mirabilis) (morganii) as the cause of diseases classified elsewhere; R26.89 Other abnormalities of gait and mobility
CPT/HCPCS: 36415; 70450-TC; 71045-TC-FY; 72125-TC; 80053; 81003; 82550; 82553; 82607; 83605; 83735; 84443; 84484; 85025; 85610; 86593; 87040; 87086; 87186; 93005; 93010; 97116-GP; 97162-GP; 99285-25; J1644; J7030

== ENCOUNTER 2020-06-19 14:39 | Inpatient (IN) | payer OTHER ==
[2020-06-19 15:50] LABS: BASO % 0.8 % (0-2.0); EOS % 1.4 % (0-4.5); HEMATOCRIT 37.9 % (32.4-45.2); HEMOGLOBIN 12.4 GM/dL (10.7-15.3); MCH 28.6 pg (25.7-33.7); MCHC 32.9 g/dl (32.0-36.0); MEAN CELL VOLUME 87.2 fl (80-96); MEAN PLT VOLUME 9.4 fl (7.5-11.1); MONO % 6.9 % (3.8-10.2); NEUT % 57.9 % (42.8-82.8); PLATELET COUNT 200 K/MM3 (134-434); RBC 4.34 M/mm3 (3.60-5.2); RDW 13.7 % (11.6-15.6); WHITE BLOOD COUNT 4.6 K/mm3 (4.0-10.0)
[2020-06-19 16:00] LABS: INR 1.06 (0.83-1.09); PROTHROMBIN TIME (PATIENT) 12.8 SEC (9.7-13.0)
[2020-06-19] MEDS ORDERED: ACETAMINOPHEN 325 MG TABLET (FP) ONE (16:00)
[2020-06-19 16:02] LABS: ACTIVATED PTT 33.5 SECONDS (25.2-36.5)
[2020-06-19] MEDS ORDERED: ACETAMINOPHEN 325 MG TABLET (FP) PO ONE (16:02)
[2020-06-19 16:25] LABS: CHLORIDE 104 mmol/L (98-107); POTASSIUM 3.7 mmol/L (3.5-5.1); SODIUM 142 mmol/L (136-145)
[2020-06-19 16:27] LABS: CALCIUM 9.2 mg/dL (8.5-10.1)
[2020-06-19 16:28] LABS: ALBUMIN 3.7 g/dl (3.4-5.0); ANION GAP 6 MMOL/L (8-16); BLOOD UREA NITROGEN 19.4 mg/dL (7-18); CO2 32 mmol/L (21-32); GLUCOSE,RANDOM 96 mg/dL (74-106)
[2020-06-19 16:31] LABS: CREATININE 0.8 mg/dL (0.55-1.3); SGOT/AST 24 U/L (15-37); SGPT/ALT 21 U/L (13-61)
[2020-06-19 16:33] LABS: BILIRUBIN,TOTAL 0.8 mg/dL (0.2-1); TOT PROT 6.8 g/dl (6.4-8.2)
[2020-06-19 16:34] LABS: ALK PHOS 98 U/L (45-117)
[2020-06-19 16:35] LABS: EPI CELLS 8 /uL (0-25.1); HYALINE CASTS 0 /uL (0-3.1); URINE APPEARANCE CLEAR; URINE BACTERIA 110 /uL (0-1359); URINE BILIRUBIN NEGATIVE (NEGATIVE); URINE COLOR YELLOW; URINE GLUCOSE (UA) NEGATIVE (NEGATIVE); URINE KETONE NEGATIVE (NEGATIVE); URINE LEUK ESTERASE NEGATIVE (NEGATIVE); URINE NITRITE NEGATIVE (NEGATIVE); URINE PROTEIN NEGATIVE (NEGATIVE); URINE RBC 11 /uL (0-23.9); URINE UROBILINOGEN 0.2 mg/dL (0.2-1.0); URINE WBC 2 /uL (0-25.8)
[2020-06-20] MEDS ORDERED: ESCITALOPRAM OXALATE 10 MG TABLET ONE (12:49)
[2020-06-20] MEDS ORDERED: amLODIPine BESYLATE 5 MG TABLET (FP) ONE (12:49)
[2020-06-20] MEDS: amLODIPine BESYLATE 5 MG TABLET (FP) PO SCH (13:00)
[2020-06-20] MEDS: ESCITALOPRAM OXALATE 10 MG TABLET PO SCH (13:00)
[2020-06-20] MEDS: ASPIRIN 81 MG CHEWABLE TABLETS PO SCH (13:18)
[2020-06-20] MEDS ORDERED: DONEPEZIL HCL 5 MG TABLET (FP) PO SCH (18:00)
[2020-06-20] MEDS: HEPARIN NA (PORCINE) 5,000 UNITS/ML 1ML VIAL SQ SCH (21:42)
[2020-06-20] MEDS: ROSUVASTATIN CA 5 MG TABLET (FP) PO SCH (21:43)
[2020-06-21 07:02] LABS: BASO % 0.7 % (0-2.0); EOS % 1.6 % (0-4.5); HEMATOCRIT 35.9 % (32.4-45.2); HEMOGLOBIN 11.5 GM/dL (10.7-15.3); LYMPH % 27.2 % (8-40); MCH 27.9 pg (25.7-33.7); MCHC 31.9 g/dl (32.0-36.0); MEAN CELL VOLUME 87.4 fl (80-96); MEAN PLT VOLUME 9.4 fl (7.5-11.1); MONO % 6.9 % (3.8-10.2); NEUT % 63.6 % (42.8-82.8); PLATELET COUNT 171 K/MM3 (134-434); RBC 4.11 M/mm3 (3.60-5.2); RDW 13.6 % (11.6-15.6); WHITE BLOOD COUNT 8.8 K/mm3 (4.0-10.0)
[2020-06-21 07:25] LABS: POTASSIUM 3.3 mmol/L (3.5-5.1)
[2020-06-21 07:31] LABS: ALBUMIN 3.3 g/dl (3.4-5.0); CALCIUM 8.9 mg/dL (8.5-10.1)
[2020-06-21 07:36] LABS: BILIRUBIN,TOTAL 0.6 mg/dL (0.2-1); TOT PROT 6.1 g/dl (6.4-8.2)
[2020-06-21 07:55] LABS: CREATININE 0.6 mg/dL (0.55-1.3)
[2020-06-21] MEDS: HEPARIN NA (PORCINE) 5,000 UNITS/ML 1ML VIAL SQ SCH ×2 (09:10→21:22)
[2020-06-21] MEDS: amLODIPine BESYLATE 5 MG TABLET (FP) PO SCH (09:10)
[2020-06-21] MEDS: ESCITALOPRAM OXALATE 10 MG TABLET PO SCH (09:10)
[2020-06-21] MEDS ORDERED: SOLIFENACIN SUCCINATE 5 MG TAB PO SCH (10:00)
[2020-06-21] MEDS ORDERED: POTASSIUM CHLORIDE ORAL LIQUID 20 MEQ/15 ML PO ONE (10:32)
[2020-06-21 11:12] LABS: MAGNESIUM 2.3 mg/dL (1.8-2.4)
[2020-06-21] MEDS: ROSUVASTATIN CA 5 MG TABLET (FP) PO SCH (21:22)
[2020-06-22] MEDS: HEPARIN NA (PORCINE) 5,000 UNITS/ML 1ML VIAL SQ SCH ×2 (10:22→21:44)
[2020-06-22] MEDS: amLODIPine BESYLATE 5 MG TABLET (FP) PO SCH (10:25)
[2020-06-22] MEDS: ASPIRIN 81 MG CHEWABLE TABLETS PO SCH (10:25)
[2020-06-22] MEDS: ESCITALOPRAM OXALATE 10 MG TABLET PO SCH (10:26)
[2020-06-22 13:57] VITALS: BMI 16.6
[2020-06-22] MEDS: AMINO ACIDS/PROTEIN HYDROLYS 30 ML LIQUID.PKT PO SCH (16:32)
[2020-06-22 20:55] LABS: CALCIUM 8.8 mg/dL (8.5-10.1)
[2020-06-22 20:56] LABS: BLOOD UREA NITROGEN 23.3 mg/dL (7-18)
[2020-06-22 20:59] LABS: BILIRUBIN,TOTAL 0.8 mg/dL (0.2-1); CREATININE 0.9 mg/dL (0.55-1.3)
[2020-06-22 21:00] LABS: TOT PROT 5.8 g/dl (6.4-8.2)
[2020-06-22] MEDS: ROSUVASTATIN CA 5 MG TABLET (FP) PO SCH (21:44)
[2020-06-23] MEDS: ESCITALOPRAM OXALATE 10 MG TABLET PO SCH (09:15)
[2020-06-23] MEDS: AMINO ACIDS/PROTEIN HYDROLYS 30 ML LIQUID.PKT PO SCH ×2 (09:15→17:09)
[2020-06-23] MEDS: amLODIPine BESYLATE 5 MG TABLET (FP) PO SCH (09:15)
[2020-06-23] MEDS: HEPARIN NA (PORCINE) 5,000 UNITS/ML 1ML VIAL SQ SCH (09:16)
[2020-06-23 15:21] VITALS: BP 140/63; PULSE 80; TEMP 98.2
[2020-06-24] MEDS ORDERED: POLYETHYLENE GLYCOL 3350 119 GM BTL PO SCH (10:00)
== END 2020-06-23 17:44 | disposition home or self-care (01) | DRG 101 ==
LOC: JER 14:39 → SUPCPDRO 14:39 → JERBED 19:55 → OBSVTOIN 06-20 12:27 → J4W 06-20 15:43
PROVIDERS: ADMIT Internal Medicine; ATTEND Internal Medicine
DX: R56.9 Unspecified convulsions (principal); I10 Essential (primary) hypertension; I16.0 Hypertensive urgency; G20 Parkinson's disease; G30.9 Alzheimer's disease, unspecified; E78.5 Hyperlipidemia, unspecified; R55 Syncope and collapse; E87.6 Hypokalemia
CPT/HCPCS: 36415; 70450-TC; 71045-TC-FY; 80053; 80061; 81003; 82550; 82962; 83721; 83735; 84484; 85025; 85610; 85730; 87077; 87086; 93005; 93010; 93306-TC; 93880-TC; 97116-GP; 97161-GP; 99285-25; C9803; G0378; J1644; U0003

== ENCOUNTER 2021-02-10 15:42 | Inpatient (IN) | payer OTHER ==
[2021-02-10 19:12] LABS: BASO % 0.6 % (0-2.0); EOS % 0.4 % (0-4.5); HEMATOCRIT 35.9 % (32.4-45.2); HEMOGLOBIN 11.9 GM/dL (10.7-15.3); MCH 28.5 pg (25.7-33.7); MCHC 33.2 g/dl (32.0-36.0); MEAN CELL VOLUME 85.8 fl (80-96); MONO % 7.8 % (3.8-10.2); NEUT % 75.2 % (42.8-82.8); PLATELET COUNT 225 10^3/uL (134-434); RBC 4.19 M/mm3 (3.60-5.2); RDW 14.4 % (11.6-15.6); WHITE BLOOD COUNT 10.6 K/mm3 (4.0-10.0)
[2021-02-10 19:30] LABS: CHLORIDE 106 mmol/L (98-107); SODIUM 142 mmol/L (136-145)
[2021-02-10 19:32] LABS: CALCIUM 8.6 mg/dL (8.5-10.1)
[2021-02-10 19:33] LABS: ALBUMIN 3.4 g/dl (3.4-5.0); ANION GAP 9 MMOL/L (8-16); CO2 27 mmol/L (21-32); GLUCOSE,RANDOM 96 mg/dL (74-106)
[2021-02-10 19:36] LABS: CREATININE 0.8 mg/dL (0.55-1.3); SGOT/AST 23 U/L (15-37); SGPT/ALT 8 U/L (13-61)
[2021-02-10 19:37] LABS: BILIRUBIN,TOTAL 0.8 mg/dL (0.2-1)
[2021-02-10 19:38] LABS: TOT PROT 6.5 g/dl (6.4-8.2)
[2021-02-10 19:39] LABS: ALK PHOS 125 U/L (45-117)
[2021-02-10 19:41] LABS: N-TERMINAL BNP 825.2 pg/ml (5-450)
[2021-02-10 20:24] LABS: EPI CELLS >36 /uL (0-25.1); HYALINE CASTS 128 /uL (0-3.1); PH,URINE >= 9.0 (5.0-8.0); URINE APPEARANCE TURBID; URINE BACTERIA >9,000 /uL (0-1359); URINE BILIRUBIN NEGATIVE (NEGATIVE); URINE COLOR YELLOW; URINE GLUCOSE (UA) NEGATIVE (NEGATIVE); URINE KETONE 1+ (NEGATIVE); URINE LEUK ESTERASE 3+ (NEGATIVE); URINE NITRITE NEGATIVE (NEGATIVE); URINE PROTEIN 2+ (NEGATIVE); URINE WBC 5203 /uL (0-25.8)
[2021-02-10] MEDS ORDERED: CEFTRIAXONE 1,000 MG in DEXTROSE 5%-WATER - 50 ML IVPB ONE (20:40)
[2021-02-10] MEDS ORDERED: CEFTRIAXONE 1 GM/50 ML BAG ONE (20:45)
[2021-02-10 20:52] LABS: URINE RBC 47.9 /uL (0-23.9)
[2021-02-10 20:53] LABS: YEAST NEGATIVE (NEGATIVE)
[2021-02-10 20:55] LABS: URINE CRYSTALS MODERATE /hpf
[2021-02-11] MEDS: ASPIRIN 81 MG CHEWABLE TABLETS PO SCH ×2 (00:02→22:36)
[2021-02-11 08:04] LABS: BASO % 0.6 % (0-2.0); EOS % 1.3 % (0-4.5); HEMATOCRIT 32.6 % (32.4-45.2); HEMOGLOBIN 11.1 GM/dL (10.7-15.3); LYMPH % 18.8 % (8-40); MCH 28.6 pg (25.7-33.7); MCHC 33.9 g/dl (32.0-36.0); MEAN CELL VOLUME 84.4 fl (80-96); MEAN PLT VOLUME 8.3 fl (7.5-11.1); MONO % 7.9 % (3.8-10.2); NEUT % 71.4 % (42.8-82.8); PLATELET COUNT 223 10^3/uL (134-434); RBC 3.87 M/mm3 (3.60-5.2); RDW 13.8 % (11.6-15.6); WHITE BLOOD COUNT 7.4 K/mm3 (4.0-10.0)
[2021-02-11 08:34] LABS: BLOOD UREA NITROGEN 17.9 mg/dL (7-18)
[2021-02-11 08:37] LABS: CALCIUM 8.4 mg/dL (8.5-10.1); TOT PROT 5.7 g/dl (6.4-8.2)
[2021-02-11 08:38] LABS: CREATININE 0.5 mg/dL (0.55-1.3)
[2021-02-11 08:39] LABS: ALBUMIN 2.9 g/dl (3.4-5.0)
[2021-02-11 08:44] LABS: BILIRUBIN,TOTAL 0.8 mg/dL (0.2-1)
[2021-02-11] MEDS ORDERED: DEXTROSE 5%-WATER - 50 ML IVPB ONE (09:58)
[2021-02-11] MEDS ORDERED: cefTRIAXone SODIUM 1 GM VIAL ONE (09:58)
[2021-02-11] MEDS: CEFTRIAXONE 1 GM in DEXTROSE 5%-WATER - 50 ML IVPB SCH (10:06)
[2021-02-11] MEDS: ENOXAPARIN NA (PORCINE) 40 MG/0.4 ML DISP.SYRIN SQ SCH (10:07)
[2021-02-11] MEDS: amLODIPine BESYLATE 5 MG TABLET (FP) PO SCH (10:08)
[2021-02-11] MEDS: ESCITALOPRAM OXALATE 10 MG TABLET PO SCH (10:08)
[2021-02-11] MEDS: HYDROCHLOROTHIAZIDE 25 MG TABLET (FP) PO SCH (10:08)
[2021-02-11] MEDS ORDERED: PT OWN MED DRAWER 7, Y5N ONE (13:13)
[2021-02-11] MEDS: ROSUVASTATIN CA 5 MG TABLET (FP) PO SCH (22:36)
[2021-02-12] MEDS ORDERED: DEXTROSE 5%-WATER - 50 ML IVPB ONE (09:57)
[2021-02-12] MEDS ORDERED: cefTRIAXone SODIUM 1 GM VIAL ONE (09:57)
[2021-02-12] MEDS: CEFTRIAXONE 1 GM in DEXTROSE 5%-WATER - 50 ML IVPB SCH (09:59)
[2021-02-12] MEDS: HYDROCHLOROTHIAZIDE 25 MG TABLET (FP) PO SCH (09:59)
[2021-02-12] MEDS: amLODIPine BESYLATE 5 MG TABLET (FP) PO SCH (09:59)
[2021-02-12] MEDS: ESCITALOPRAM OXALATE 10 MG TABLET PO SCH (09:59)
[2021-02-12] MEDS: ENOXAPARIN NA (PORCINE) 40 MG/0.4 ML DISP.SYRIN SQ SCH (10:01)
[2021-02-12] MEDS ORDERED: POTASSIUM CHLORIDE TABS 20 MEQ TABLET.ER (FP) PO ONE (18:53)
[2021-02-12] MEDS: ROSUVASTATIN CA 5 MG TABLET (FP) PO SCH (21:19)
[2021-02-13] MEDS: ASPIRIN 81 MG CHEWABLE TABLETS PO SCH ×2 (00:03→23:39)
[2021-02-13 08:10] LABS: BASO % 0.7 % (0-2.0); EOS % 1.6 % (0-4.5); HEMATOCRIT 34.7 % (32.4-45.2); HEMOGLOBIN 11.7 GM/dL (10.7-15.3); MCH 28.4 pg (25.7-33.7); MCHC 33.7 g/dl (32.0-36.0); MEAN CELL VOLUME 84.2 fl (80-96); MEAN PLT VOLUME 7.7 fl (7.5-11.1); MONO % 8.2 % (3.8-10.2); NEUT % 66.5 % (42.8-82.8); PLATELET COUNT 266 10^3/uL (134-434); RBC 4.12 M/mm3 (3.60-5.2); WHITE BLOOD COUNT 5.7 K/mm3 (4.0-10.0)
[2021-02-13] MEDS ORDERED: cefTRIAXone SODIUM 1 GM VIAL ONE (08:10)
[2021-02-13] MEDS ORDERED: DEXTROSE 5%-WATER - 50 ML IVPB ONE (08:10)
[2021-02-13 08:32] LABS: CALCIUM 8.6 mg/dL (8.5-10.1)
[2021-02-13 08:33] LABS: BLOOD UREA NITROGEN 20.9 mg/dL (7-18)
[2021-02-13 08:36] LABS: CREATININE 0.7 mg/dL (0.55-1.3)
[2021-02-13 08:37] LABS: BILIRUBIN,TOTAL 0.5 mg/dL (0.2-1)
[2021-02-13] MEDS: CEFTRIAXONE 1 GM in DEXTROSE 5%-WATER - 50 ML IVPB SCH (09:13)
[2021-02-13] MEDS: amLODIPine BESYLATE 5 MG TABLET (FP) PO SCH (09:13)
[2021-02-13] MEDS: ENOXAPARIN NA (PORCINE) 40 MG/0.4 ML DISP.SYRIN SQ SCH (09:13)
[2021-02-13] MEDS: ESCITALOPRAM OXALATE 10 MG TABLET PO SCH (09:14)
[2021-02-13] MEDS: HYDROCHLOROTHIAZIDE 25 MG TABLET (FP) PO SCH (09:14)
[2021-02-13 10:45] VITALS: BMI 20.9
[2021-02-13] MEDS: DOCUSATE SODIUM 100 MG CAPSULE (FP) PO SCH ×2 (13:01→22:02)
[2021-02-13] MEDS: ACETAMINOPHEN 325 MG TABLET (FP) PO PRN ×2 (13:01→21:58)
[2021-02-13] MEDS: AMINO ACIDS/PROTEIN HYDROLYS 30 ML LIQUID.PKT PO SCH (16:33)
[2021-02-13] MEDS: ROSUVASTATIN CA 5 MG TABLET (FP) PO SCH (22:02)
[2021-02-14] MEDS: ACETAMINOPHEN 325 MG TABLET (FP) PO PRN ×2 (03:30→11:31)
[2021-02-14] MEDS: DOCUSATE SODIUM 100 MG CAPSULE (FP) PO SCH ×3 (05:11→22:10)
[2021-02-14 07:26] LABS: BASO % 0.6 % (0-2.0); EOS % 2.1 % (0-4.5); HEMATOCRIT 35.9 % (32.4-45.2); HEMOGLOBIN 11.7 GM/dL (10.7-15.3); LYMPH % 29.6 % (8-40); MCH 27.9 pg (25.7-33.7); MCHC 32.6 g/dl (32.0-36.0); MEAN CELL VOLUME 85.6 fl (80-96); MEAN PLT VOLUME 8.4 fl (7.5-11.1); MONO % 6.6 % (3.8-10.2); NEUT % 61.1 % (42.8-82.8); PLATELET COUNT 298 10^3/uL (134-434); RBC 4.19 M/mm3 (3.60-5.2); RDW 13.8 % (11.6-15.6); WHITE BLOOD COUNT 6.3 K/mm3 (4.0-10.0)
[2021-02-14 07:46] LABS: ALBUMIN 2.9 g/dl (3.4-5.0); BLOOD UREA NITROGEN 31.5 mg/dL (7-18)
[2021-02-14 07:48] LABS: BILIRUBIN,TOTAL 0.4 mg/dL (0.2-1); CALCIUM 8.4 mg/dL (8.5-10.1); TOT PROT 5.9 g/dl (6.4-8.2)
[2021-02-14 07:49] LABS: CREATININE 0.7 mg/dL (0.55-1.3)
[2021-02-14] MEDS ORDERED: cefTRIAXone SODIUM 1 GM VIAL ONE (08:52)
[2021-02-14] MEDS ORDERED: DEXTROSE 5%-WATER - 50 ML IVPB ONE (08:53)
[2021-02-14] MEDS: CEFTRIAXONE 1 GM in DEXTROSE 5%-WATER - 50 ML IVPB SCH (09:18)
[2021-02-14] MEDS: AMINO ACIDS/PROTEIN HYDROLYS 30 ML LIQUID.PKT PO SCH ×2 (09:19→16:46)
[2021-02-14] MEDS: HYDROCHLOROTHIAZIDE 25 MG TABLET (FP) PO SCH (09:19)
[2021-02-14] MEDS: ENOXAPARIN NA (PORCINE) 40 MG/0.4 ML DISP.SYRIN SQ SCH (09:19)
[2021-02-14] MEDS: amLODIPine BESYLATE 5 MG TABLET (FP) PO SCH (09:20)
[2021-02-14] MEDS: ESCITALOPRAM OXALATE 10 MG TABLET PO SCH (09:20)
[2021-02-14] MEDS ORDERED: SENNOSIDES 8.6MG TABLET (FP) PO PRN (16:32)
[2021-02-14] MEDS: ROSUVASTATIN CA 5 MG TABLET (FP) PO SCH (22:15)
[2021-02-14] MEDS: ASPIRIN 81 MG CHEWABLE TABLETS PO SCH (23:45)
[2021-02-15] MEDS: ACETAMINOPHEN 325 MG TABLET (FP) PO PRN (01:53)
[2021-02-15] MEDS: DOCUSATE SODIUM 100 MG CAPSULE (FP) PO SCH ×3 (05:51→22:55)
[2021-02-15] MEDS ORDERED: DEXTROSE 5%-WATER - 50 ML IVPB ONE (09:15)
[2021-02-15] MEDS ORDERED: cefTRIAXone SODIUM 1 GM VIAL ONE (09:15)
[2021-02-15] MEDS: AMINO ACIDS/PROTEIN HYDROLYS 30 ML LIQUID.PKT PO SCH ×2 (09:25→18:19)
[2021-02-15] MEDS: CEFTRIAXONE 1 GM in DEXTROSE 5%-WATER - 50 ML IVPB SCH (09:26)
[2021-02-15] MEDS: amLODIPine BESYLATE 5 MG TABLET (FP) PO SCH (09:28)
[2021-02-15] MEDS: ESCITALOPRAM OXALATE 10 MG TABLET PO SCH (09:28)
[2021-02-15] MEDS: ENOXAPARIN NA (PORCINE) 40 MG/0.4 ML DISP.SYRIN SQ SCH (09:28)
[2021-02-15] MEDS: HYDROCHLOROTHIAZIDE 25 MG TABLET (FP) PO SCH (09:29)
[2021-02-15] MEDS ORDERED: PT OWN MED DRAWER 7, Y5N ONE ×4 (12:28→18:32)
[2021-02-15] MEDS: ASPIRIN 81 MG CHEWABLE TABLETS PO SCH (22:55)
[2021-02-15] MEDS: ROSUVASTATIN CA 5 MG TABLET (FP) PO SCH (22:55)
[2021-02-16] MEDS: DOCUSATE SODIUM 100 MG CAPSULE (FP) PO SCH ×3 (05:24→21:33)
[2021-02-16] MEDS ORDERED: cefTRIAXone SODIUM 1 GM VIAL ONE (08:37)
[2021-02-16] MEDS ORDERED: DEXTROSE 5%-WATER - 50 ML IVPB ONE (08:37)
[2021-02-16] MEDS: CEFTRIAXONE 1 GM in DEXTROSE 5%-WATER - 50 ML IVPB SCH (09:03)
[2021-02-16] MEDS: ENOXAPARIN NA (PORCINE) 40 MG/0.4 ML DISP.SYRIN SQ SCH (09:05)
[2021-02-16] MEDS: ESCITALOPRAM OXALATE 10 MG TABLET PO SCH (09:05)
[2021-02-16] MEDS: AMINO ACIDS/PROTEIN HYDROLYS 30 ML LIQUID.PKT PO SCH ×2 (09:05→16:54)
[2021-02-16] MEDS: HYDROCHLOROTHIAZIDE 25 MG TABLET (FP) PO SCH (09:06)
[2021-02-16] MEDS: amLODIPine BESYLATE 5 MG TABLET (FP) PO SCH (09:06)
[2021-02-16] MEDS ORDERED: PT OWN MED DRAWER 7, Y5N ONE ×3 (13:21→16:52)
[2021-02-16] MEDS: ROSUVASTATIN CA 5 MG TABLET (FP) PO SCH (21:33)
[2021-02-16] MEDS: ASPIRIN 81 MG CHEWABLE TABLETS PO SCH (22:33)
[2021-02-17] MEDS: DOCUSATE SODIUM 100 MG CAPSULE (FP) PO SCH ×3 (05:36→22:21)
[2021-02-17] MEDS: HYDROCHLOROTHIAZIDE 25 MG TABLET (FP) PO SCH (09:50)
[2021-02-17] MEDS: AMINO ACIDS/PROTEIN HYDROLYS 30 ML LIQUID.PKT PO SCH ×2 (09:50→17:56)
[2021-02-17] MEDS: ESCITALOPRAM OXALATE 10 MG TABLET PO SCH (09:50)
[2021-02-17] MEDS: ENOXAPARIN NA (PORCINE) 40 MG/0.4 ML DISP.SYRIN SQ SCH (09:50)
[2021-02-17] MEDS: amLODIPine BESYLATE 5 MG TABLET (FP) PO SCH (09:51)
[2021-02-17] MEDS ORDERED: PT OWN MED DRAWER 7, Y5N ONE (20:23)
[2021-02-17] MEDS: ROSUVASTATIN CA 5 MG TABLET (FP) PO SCH (22:21)
[2021-02-17] MEDS: ASPIRIN 81 MG CHEWABLE TABLETS PO SCH (22:55)
[2021-02-18] MEDS: DOCUSATE SODIUM 100 MG CAPSULE (FP) PO SCH ×2 (06:25→13:18)
[2021-02-18] MEDS: AMINO ACIDS/PROTEIN HYDROLYS 30 ML LIQUID.PKT PO SCH ×2 (09:06→17:03)
[2021-02-18] MEDS: amLODIPine BESYLATE 5 MG TABLET (FP) PO SCH (09:06)
[2021-02-18] MEDS: HYDROCHLOROTHIAZIDE 25 MG TABLET (FP) PO SCH (09:06)
[2021-02-18] MEDS: ESCITALOPRAM OXALATE 10 MG TABLET PO SCH (09:07)
[2021-02-18] MEDS ORDERED: PT OWN MED DRAWER 7, Y5N ONE ×2 (13:11→17:00)
[2021-02-18 14:51] VITALS: BP 119/51; PULSE 85; TEMP 98.6
== END 2021-02-18 21:00 | DRG 689 ==
LOC: JER 15:42 → JERBED 21:06 → J7W 22:57
PROVIDERS: ADMIT Internal Medicine; ATTEND Internal Medicine
DX: N39.0 Urinary tract infection, site not specified (principal); G93.41 Metabolic encephalopathy; B96.4 Proteus (mirabilis) (morganii) as the cause of diseases classified elsewhere; R41.82 Altered mental status, unspecified; G30.9 Alzheimer's disease, unspecified; F02.80 Dementia in other diseases classified elsewhere, unspecified severity, without behavioral disturbance, psychotic disturbance, mood disturbance, and anxiety; D64.9 Anemia, unspecified; E78.5 Hyperlipidemia, unspecified; I10 Essential (primary) hypertension; G20 Parkinson's disease; M19.90 Unspecified osteoarthritis, unspecified site; M25.469 Effusion, unspecified knee; M17.12 Unilateral primary osteoarthritis, left knee; K21.9 Gastro-esophageal reflux disease without esophagitis; F32.9 Major depressive disorder, single episode, unspecified; E86.0 Dehydration; K59.09 Other constipation
CPT/HCPCS: 36415; 70450-TC; 71045-TC-FY; 72170-TC-FY; 73502-TC-LT-FY; 73560-TC-LT-FY; 73700-TC-RT; 80053; 81003; 82550; 82553; 83880; 84484; 85025; 87086; 87186; 93005; 93010; 97116-GP; 97161-GP; 99285-25; C9803; U0003; U0005

== ENCOUNTER 2021-08-08 21:22 | Emergency (ER) | payer OTHER ==
[2021-08-08 21:50] VITALS: BP 158/74; PULSE 82; TEMP 98.8; BMI 19.5
[2021-08-09 01:12] LABS: BASO % 0.2 % (0-2.0); EOS % 0.3 % (0-4.5); HEMATOCRIT 37.8 % (32.4-45.2); HEMOGLOBIN 12.7 GM/dL (10.7-15.3); LYMPH % 14.7 % (8-40); MCH 28.6 pg (25.7-33.7); MCHC 33.5 g/dl (32.0-36.0); MEAN CELL VOLUME 85.2 fl (80-96); MEAN PLT VOLUME 8.1 fl (7.5-11.1); NEUT % 77.8 % (42.8-82.8); PLATELET COUNT 238 10^3/uL (134-434); RBC 4.44 M/mm3 (3.60-5.2); RDW 14.2 % (11.6-15.6); WHITE BLOOD COUNT 10.7 K/mm3 (4.0-10.0)
[2021-08-09 01:33] LABS: ALBUMIN 3.3 g/dl (3.4-5.0); BLOOD UREA NITROGEN 23.4 mg/dL (7-18)
[2021-08-09 01:36] LABS: CREATININE 0.7 mg/dL (0.55-1.3)
[2021-08-09 01:38] LABS: BILIRUBIN,TOTAL 0.4 mg/dL (0.2-1); TOT PROT 6.4 g/dl (6.4-8.2)
[2021-08-09 02:27] LABS: PH,URINE 7.5 (5.0-8.0); URINE APPEARANCE CLEAR; URINE BILIRUBIN NEGATIVE (NEGATIVE); URINE COLOR YELLOW; URINE GLUCOSE (UA) NEGATIVE (NEGATIVE); URINE KETONE NEGATIVE (NEGATIVE); URINE LEUK ESTERASE NEGATIVE (NEGATIVE); URINE NITRITE NEGATIVE (NEGATIVE); URINE PROTEIN NEGATIVE (NEGATIVE); URINE UROBILINOGEN 0.2 mg/dL (0.2-1.0)
== END 2021-08-09 04:44 | disposition home or self-care (01) ==
LOC: JER 21:22
DX: M54.9 Dorsalgia, unspecified (principal); W01.0XXA Fall on same level from slipping, tripping and stumbling without subsequent striking against object, initial encounter
CPT/HCPCS: 36415; 72170-TC-FY; 80053; 81003; 85025; 93005; 93010; 99283-25